=== PATIENT | female | born 1945 | race Caucasian/White ===

== ENCOUNTER 2020-03-21 11:50 | Outpatient (REF) | payer MEDICARE, SELFPAY ==
[2020-03-21 12:56] LABS: Hematocrit 47.6 % (37-47); Mean Corpuscular HGB Conc 33.6 g/dl (31.0-35.0); Mean Corpuscular Hemoglobin 31.7 pg (27.0-33.0); Mean Corpuscular Volume 94.3 fL (80-98); Mean Platelet Volume 11.3 fL (9.4-12.3); Platelet Count 209 X10*3/uL (160-400); Red Blood Count 5.05 X10*6/uL (4.20-5.50); White Blood Count 11.6 X10*3/uL (4.8-10.8)
[2020-03-21 13:25] LABS: Alanine Aminotransferase 21 U/L (0-31); Albumin Level 4.6 g/dL (3.5-5.0); Alkaline Phosphatase 98 U/L (39-117); Aspartate Amino Transferase 17 U/L (5-31); Bilirubin Direct 0.2 mg/dL (0.0-0.5); Bilirubin Total 0.4 mg/dL (0.0-1.0); Cholesterol 192 mg/dL; HDL Cholesterol 40 mg/dL; LDL Cholesterol Calculated 122 mg/dl; Total Protein 7.1 g/dL (6.5-8.0); Triglycerides 152 mg/dL
[2020-03-21 13:49] LABS: Thyroid Stimulating Hormone 1.38 uIU/mL (0.32-4.0)
[2020-03-21 14:59] LABS: Glucose Urine UA NEG (NEG); Leukocyte Esterase Urine 1+ (NEG); Nitrite Urine NEG (NEG); PH 5.5 (5.0-8.0); Specific Gravity - Urine >= 1.030 (1.005-1.025); Urine Blood TRACE (NEG); Urine Ketones NEG (NEG); Urine Protein NEG (NEG-TRACE)
[2020-03-21 15:00] LABS: Appearance Urine HAZY; Color Urine YELLOW
[2020-03-21 15:16] LABS: Bacteria Urine 1+ /LPF; Mucus Urine 1+ /LPF; Squamous Epithelial Cell Urine 1+ /LPF; WBC Urine 30-49 /HPF (0-4)
[2020-03-25 13:02] LABS: Vitamin D 25-OH, D2 <4 ng/mL; Vitamin D 25-OH, D3 59 ng/mL; Vitamin D 25-OH, Total 59 ng/mL (30-100)
== END 2020-03-21 11:51 | disposition home or self-care (01) ==
LOC: HO.LAB 11:50
PROVIDERS: PCP Internal Medicine; Visit Provider Internal Medicine
DX: I10 Essential (primary) hypertension (principal)
CPT/HCPCS: 36415; 80061; 80076; 81001; 82306; 82550; 84443; 85027

== ENCOUNTER 2020-04-28 06:55 | Outpatient (REF) | payer MEDICARE, SELFPAY ==
[2020-04-28 09:10] LABS: Free T4 (Free Thyroxine) 1.02 ng/dL (0.71-1.85); Thyroid Stimulating Hormone 1.07 uIU/mL (0.32-4.0)
== END 2020-04-28 06:56 | disposition home or self-care (01) ==
LOC: HO.LAB 06:55
PROVIDERS: PCP Internal Medicine; Visit Provider Internal Medicine
DX: E04.2 Nontoxic multinodular goiter (principal)
CPT/HCPCS: 36415; 84439; 84443

== ENCOUNTER 2020-05-09 09:56 | Outpatient (REF) | payer MEDICARE, SELFPAY ==
--- NOTE | ~2020-05-09 | US_ITS ---
EXAMINATION: US THYROID CLINICAL INFORMATION: Nontoxic multinodular goiter. COMPARISON: Ultrasound soft tissue head/neck thyroid dated 04/13/2019 and 11/24/2017 TECHNIQUE: Linear transducer moreno-scale and color Doppler examination with attention to the region of the thyroid. FINDINGS: SIZE: Measurements of the thyroid lobes and nodules are given in sagittal, anteroposterior and transverse dimensions respectively. Right Thyroid Lobe: 8.21 x 4.19 x 3.81 cm, volume 68.6 mL. Previously 8.1 x 4.4 x 3.9 cm, volume 72.1 mL. Parenchyma: The gland echotexture is heterogeneous. Thyroid vascularity is normal. Left Thyroid Lobe: 6.17 x 3.03 x 1.67 cm, volume 16.4 mL. Previously 6.2 x 2.7 x 2.0 cm, volume 17.8 mL. Parenchyma: The gland echotexture is heterogeneous. Thyroid vascularity is normal. Isthmus: 0.83 cm in maximum AP dimension. Previously 0.40 cm. Estimated total number of nodules greater than or equal to 1 cm: 3. Retail Security Professional nodules are described as follows: 1. Location: Right. Size: 5.19 x 4.13 x 3.73 cm, volume 41.9 mL. Previously: 4.8 x 3.9 x 3.7 cm, volume 36.2 mL. Nodule characteristics: Composition: Mixed cystic and solid (1). Echogenicity: Hyperechoic (1). Shape: Not taller than wide (0). Margins: Smooth (0). Echogenic Foci: Macrocalcifications (1). Punctate echogenic foci (3). ACR TI-RADS total points: 6 Previous: n/a ACR TI-RADS category: 4 Previous: n/a Significant change in size (>/= 20% in 2 dimensions and minimal increase of 2 mm or 50% or greater increase in volume): None Change in features: None Change in ACR TI-RADS risk category: n/a 2. Location: Left superior. Size: 1.15 x 0.97 x 1.0 cm, volume 0.58 mL. Previously: 0.90 x 0.80 x 0.70 cm, volume 0.26 mL. Nodule characteristics: Composition: Spongiform (0). Echogenicity: Anechoic (0). Shape: Not taller than wide (0). Margins: Smooth (0). Echogenic Foci: None (0). ACR TI-RADS total points: 0 Previous: n/a ACR TI-RADS category: 1 Previous: n/a Significant change in size (>/= 20% in 2 dimensions and minimal increase of 2 mm or 50% or greater increase in volume): Minimal Change in features: None Change in ACR TI-RADS risk category: n/a 3. Location: Left mid/low. Size: 2.93 x 3.10 x 1.99 cm, volume 9.47 mL. Previously: 1.5 x 1.2 x 1.2 cm, volume 1.1 mL. It was partially measured on the previous study. Nodule characteristics: Composition: Solid/almost completely solid (2). Echogenicity: Hypoechoic (2). Shape: Not taller than wide (0). Margins: Smooth (0). Echogenic Foci: None (0). ACR TI-RADS total points: 4 Previous: n/a ACR TI-RADS category: 4 Previous: n/a Significant change in size (>/= 20% in 2 dimensions and minimal increase of 2 mm or 50% or greater increase in volume): None Change in features: None Change in ACR TI-RADS risk category: n/a NODES: No lymphadenopathy is seen in the tissue surrounding the thyroid gland. US/US thyroid IMPRESSION: Heterogeneous 5.2 cm nodule right lobe. It has minimally increased in size compared to 04/13/2019 but still less than 20% volume. The rest of the nodules are not suspicious. Recommend continued annual followup. ACR TI-RADS RECOMMENDATION REFERENCE: Ultrasound-guided fine-needle aspiration, followup ultrasound, no further follow up. * TR1 (0 point) and TR 2 (2 points): No FNA or follow up * TR3 (3 points): FNA if more than or equal to 2.5 cm in maximum dimension, followup ultrasound in 1, 3 and 5 years if 1.5 to 2.4 cm in maximum dimension. * TR4 (4-6 points): FNA if more than or equal to 1.5 cm in maximum dimension, followup ultrasound in 1, 2, 3 and 5 years if 1 to 1.4 cm in maximum dimension. * TR5 (more than or equal to 7 points): FNA if more than or equal to 1 cm in maximum dimension, followup ultrasound every year for 5 years if 0.5 to 0.9 cm in maximum dimension. * TR3, TR4 or TR5 nodules that are below the size threshold for follow up receive no follow up.
== END 2020-05-09 09:57 | disposition home or self-care (01) ==
LOC: HO.US 09:56
PROVIDERS: PCP Internal Medicine; Visit Provider Internal Medicine
DX: E04.2 Nontoxic multinodular goiter (principal)
CPT/HCPCS: 76536

== ENCOUNTER → 2020-06-05 09:34 | Outpatient (BNVA) | payer MEDICARE, SELFPAY | PROVIDERS: PCP Internal Medicine; Visit Provider Internal Medicine | DX: E04.2 Nontoxic multinodular goiter (principal); E55.9 Vitamin D deficiency, unspecified | CPT/HCPCS: 99212 ==

== ENCOUNTER 2020-07-27 09:32 | Outpatient (REF) | payer MEDICARE, SELFPAY ==
--- NOTE | 2020-07-27 10:20 | P.BOP_ITS ---
Brief Operative Note Date of Service: 07/27/20 Surgeon: Jyoti Alexander, DO This is doctor Jyoti Alexander. This is an ultrasound-guided fine-needle aspiration report. Date of Examination: 07/27/2020 Indication: Multinodular Thyroid Porcedure: Procedure was explained to the patient. Alternatives, the risk and benefits were discussed. Written consent was obtained. A time-out was also obtained. After sterile preparation, fine-needle aspiration of a left upper pole 1.2 cm thyroid nodule was performed using direct ultrasound guidance to confirm accurate needle placement. Six aspirations were made using 27 gauge needles. Samples were submitted for cytology. One pass was dedicated for [employer] Gene sequencing hydramatic specialist testing. The patient tolerated the procedure well. Aftercare instructions were provided. Impression: Uncomplicated fine needle aspiration biopsy of a left upper pole 1.2 cm thyroid nodule under ultrasound guidance. Was an Slot Machine Mechanic used for this Procedure?: No Estimated blood loss (mL): 0
[2020-07-27] MEDS: Lidocaine HCl 1 % MPF 5 ML VIAL SUBCUT (11:44)
== END 2020-07-27 09:33 | disposition home or self-care (01) ==
LOC: HO.US 09:32
PROVIDERS: PCP Internal Medicine; Visit Provider Internal Medicine
DX: E04.2 Nontoxic multinodular goiter (principal)
CPT/HCPCS: 10005; 88172; 88173; 88177

== ENCOUNTER → 2020-08-09 07:58 | Outpatient (BNVA) | payer MEDICARE, SELFPAY | PROVIDERS: PCP Physician Assistant; Visit Provider Internal Medicine | CPT/HCPCS: Q3014 ==

== ENCOUNTER 2020-08-15 07:24 | Outpatient (REF) | payer MEDICARE, SELFPAY ==
[2020-08-15 09:00] LABS: Free T4 (Free Thyroxine) 1.03 ng/dL (0.71-1.85); Thyroid Stimulating Hormone 1.06 uIU/mL (0.32-4.0); Vitamin D 25-OH Total 52.4 ng/mL (>30)
[2020-08-16 20:27] LABS: Triiodothyronine T3 Total 124 ng/dL (76-181)
== END 2020-08-15 07:25 | disposition home or self-care (01) ==
LOC: HO.LAB 07:24
PROVIDERS: PCP Internal Medicine; Visit Provider Internal Medicine
DX: E04.2 Nontoxic multinodular goiter (principal); E55.9 Vitamin D deficiency, unspecified
CPT/HCPCS: 36415; 82306; 84439; 84443; 84480

== ENCOUNTER → 2020-08-22 09:38 | Outpatient (BNVA) | payer MEDICARE, SELFPAY | PROVIDERS: PCP Physician Assistant; Visit Provider Urology | DX: N36.2 Urethral caruncle (principal); R31.29 Other microscopic hematuria | CPT/HCPCS: 99212 ==

== ENCOUNTER 2020-10-04 11:01 | Outpatient (REF) | payer MEDICARE, SELFPAY ==
--- NOTE | ~2020-10-04 | MM_ITS ---
EXAMINATION: MM SCREENING DIGITAL BREAST TOMOSYNTHESIS, BILATERAL CLINICAL INFORMATION: Screening. Asymptomatic. The lifetime risk of breast cancer based on the Tyrer-Cuzick Model is 3%. COMPARISON: Mammography: 09/29/2019, 09/23/2018, 09/09/2017 TECHNIQUE: Digital breast tomosynthesis is performed in both the craniocaudal and mediolateral oblique views along with computer-aided detection (CAD). Synthesized 2D images are generated from the tomosynthesis. Additional left CC view is provided. FINDINGS: There are scattered areas of fibroglandular density (ACR BI-RADS breast composition Category b). There are no significant masses, abnormal calcifications, or other abnormalities. Parenchymal pattern is similar to prior studies. No developing density. No significant changes. MM/MM tomosynthesis screening BI IMPRESSION: No mammographic evidence of malignancy. ASSESSMENT: BI-RADS 1: Negative RECOMMENDATION: Routine annual mammography screening. This patient's information was entered into a reminder system with a target due date for their next mammogram.
== END 2020-10-04 11:02 | disposition home or self-care (01) ==
LOC: HO.MAMMO 11:01
PROVIDERS: Visit Provider Internal Medicine
DX: Z12.31 Encounter for screening mammogram for malignant neoplasm of breast (principal)
CPT/HCPCS: 77063; 77067

== ENCOUNTER 2021-01-16 07:15 | Outpatient (REF) | payer MEDICARE, SELFPAY ==
[2021-01-16 07:52] LABS: Hematocrit 47.6 % (37.0-47.0); Hemoglobin 16.2 g/dl (12.0-16.0); Mean Corpuscular Hemoglobin 31.8 pg (27.0-33.0); Mean Corpuscular Volume 93.5 fL (80.0-98.0); Mean Platelet Volume 11.2 fL (9.4-12.3); Platelet Count 194 X10*3/uL (160-400); Red Blood Count 5.09 X10*6/uL (4.20-5.50); Red Cell Distribution Width 13.1 % (11.0-16.0); White Blood Count 11.7 X10*3/uL (4.8-10.8)
[2021-01-16 08:14] LABS: Anion Gap 13 (12-20); Blood Urea Nitrogen 13 mg/dL (9-16); Calcium 9.5 mg/dL (8.4-10.2); Carbon Dioxide 24 mmol/L (22-29); Chloride 108 mmol/L (96-108); Cholesterol 190 mg/dL; Estimated Glomerular Filt Rate > 60; Glucose Random 102 mg/dL (60-115); HDL Cholesterol 34 mg/dL; LDL Cholesterol Calculated 115 mg/dl; Potassium 4.2 mmol/L (3.3-5.1); Sodium 141 mmol/L (135-145); Triglycerides 205 mg/dL
== END 2021-01-16 07:16 | disposition home or self-care (01) ==
LOC: HO.LAB 07:15
PROVIDERS: PCP Internal Medicine; Visit Provider Internal Medicine
DX: I10 Essential (primary) hypertension (principal)
CPT/HCPCS: 36415; 80048; 80061; 85027

== ENCOUNTER 2021-03-26 10:03 | Outpatient (REF) | payer MEDICARE, SELFPAY ==
--- NOTE | ~2021-03-26 | CT_ITS ---
EXAMINATION: CT CHEST SCREENING CLINICAL INFORMATION: Lung cancer screening. COMPARISON: CT chest 09/10/2019. TECHNIQUE: Multidetector volumetric CT imaging of the chest is performed without contrast using low dose technique. Additional 2D coronal and sagittal reformatted images and axial 3D maximum intensity projection (MIP) images are generated on the CT workstation. This CT examination was performed using dose optimization techniques as appropriate, variously including the following: *Automated exposure control *Adjustment of mA and/or kV according to patient size (this includes techniques or standardized protocols for targeted exams where dose is matched to indication/reason for exam; i.e. extremities or head) *Use of iterative reconstruction technique DLP: 64 mGy-cm FINDINGS: LUNGS: The lungs are well expanded and clear of acute pneumonic process. There are linear calcifications seen in the right lower lobe anterobasal segment or along the fissure, stable to previous study. Minimal scarring is seen left lung base. No pulmonary nodules, mass or consolidation. There is a 7 mm linear density right middle lobe axial image 234/6, stable. It was visualized on previous scan on image 244/5. MEDIASTINUM: The right thyroid lobe is significantly enlarged with a hypodense nodule compressing and shifting the trachea to the left. There is substernal extension. The left thyroid gland appears normal. The distal trachea and the bronchi are widely patent. Heart size and the great vessels are normal caliber. No pericardial effusion seen. No abnormal-sized mediastinal or hilar lymph nodes seen. PLEURA: There is no pleural effusion. No pleural mass or thickening. AXILLA: No lymphadenopathy. UPPER ABDOMEN: Visualized liver, spleen, pancreas are unremarkable. Bilateral adrenal glands unremarkable as well. OSSEOUS STRUCTURES: No gross bony abnormality seen. There is moderate ventral spondylosis. No lytic or sclerotic process seen. CT/CT lung screening IMPRESSION: Branching linear calcific anterobasal segment right lower lobe and likely right middle lobe is stable. No thickening of the minor fissure seen. There is a linear focal thickening right middle lobe, stable. Enlarged right thyroid gland with large nodule and substernal thyroid extension deviating and compressing trachea to the left. ASSESSMENT: Lung-RADS category 2: Benign. RECOMMENDATION: Low-dose annual CT chest.
== END 2021-03-26 10:04 | disposition home or self-care (01) ==
LOC: HO.CT 10:03
PROVIDERS: PCP Internal Medicine; Visit Provider Physician Assistant Medical
DX: Z12.2 Encounter for screening for malignant neoplasm of respiratory organs (principal); E04.9 Nontoxic goiter, unspecified; F17.200 Nicotine dependence, unspecified, uncomplicated
CPT/HCPCS: 71271

== ENCOUNTER 2021-09-19 08:55 | Outpatient (REF) | payer MEDICARE, SELFPAY ==
--- NOTE | ~2021-09-19 | US_ITS ---
EXAMINATION: US THYROID CLINICAL INFORMATION: Nontoxic multinodular goiter. COMPARISON: US thyroid 05/09/2020 and 04/13/2019. TECHNIQUE: Linear transducer grayscale and color Doppler examination with attention to the region of the thyroid. FINDINGS: SIZE: Measurements of the thyroid lobes and nodules are given in sagittal, anteroposterior and transverse dimensions respectively. Right Thyroid Lobe: 7.1 x 4.6 x 5.5 cm, volume 93.4 mL. Previously 8.2 x 4.2 x 3.8 cm, volume 68.6 mL. Parenchyma: The gland echotexture is heterogeneous. Thyroid vascularity is normal. Left Thyroid Lobe: 8.0 x 4.3 x 2.1 cm, volume 38.9 mL. Previously 6.2 x 3.0 x 1.7 cm, volume 16.4 mL. Parenchyma: The gland echotexture is heterogeneous. Thyroid vascularity is normal. Isthmus: 1.0 cm in maximum AP dimension. Previously 0.8 cm. Estimated total number of nodules greater than or equal to 1 cm: 3. Looper Operator nodules are described as follows: 1. Location: Right mid/inferior. Size: 5.5 x 4.4 x 3.9 cm, volume 49.3 mL. Previously: 5.2 x 4.1 x 3.7 cm, volume 41.9 mL. Nodule characteristics: Composition: Mixed cystic and solid (1). Echogenicity: Hyperechoic (1). Shape: Taller than wide (3). Margins: Smooth (0). Echogenic Foci: Macrocalcifications (1). Punctate echogenic foci (3). ACR TI-RADS total points: 9 Previous: 6 ACR TI-RADS category: 5 Previous: 4 Significant change in size (>/= 20% in 2 dimensions and minimal increase of 2 mm or 50% or greater increase in volume): Mild increase in volume Change in features: None Change in ACR TI-RADS risk category: Increased 2. Location: Left superior. Size: 0.8 x 0.6 x 0.8 cm, volume 0.2 mL. Previously: 1.2 x 1.0 x 1.0 cm, volume 0.6 mL. Nodule characteristics: Composition: Solid (2). Echogenicity: Hyperechoic (1). Shape: Not taller than wide (0). Margins: Ill-defined (0). Echogenic Foci: None (0). ACR TI-RADS total points: 3 Previous: 0 ACR TI-RADS category: 3 Previous: 1 Significant change in size (>/= 20% in 2 dimensions and minimal increase of 2 mm or 50% or greater increase in volume): Minimally smaller Change in features: None Change in ACR TI-RADS risk category: Minimal increase in TI-RADS. 3. Location: Right mid/inferior. Size: 3.2 x 2.3 x 1.9 cm, volume 7.0 mL. Previously: 2.9 x 3.1 x 2.0 cm, volume 9.5 mL. Nodule characteristics: Composition: Solid (2). Echogenicity: Hyperechoic (1). Shape: Taller than wide (3). Margins: Smooth (0). Echogenic Foci: None (0). ACR TI-RADS total points: 6 Previous: 4 ACR TI-RADS category: 4 Previous: 4 Significant change in size (>/= 20% in 2 dimensions and minimal increase of 2 mm or 50% or greater increase in volume): Change in features: None Change in ACR TI-RADS risk category: Minimal change NODES: No lymphadenopathy is seen in the tissue surrounding the thyroid gland. US/US thyroid IMPRESSION: Increase in bilateral thyroid volume and heterogeneity compared to last exam. The left thyroid nodule is more heterogeneous. Recommend close followup. Minimal increase in size of the right mid pole nodule. Recommend close followup ACR TI-RADS RECOMMENDATION REFERENCE: Ultrasound-guided fine-needle aspiration, followup ultrasound, no further follow up. * TR1 (0 point) and TR 2 (2 points): No FNA or follow up * TR3 (3 points): FNA if more than or equal to 2.5 cm in maximum dimension, followup ultrasound in 1, 3 and 5 years if 1.5 to 2.4 cm in maximum dimension. * TR4 (4-6 points): FNA if more than or equal to 1.5 cm in maximum dimension, followup ultrasound in 1, 2, 3 and 5 years if 1 to 1.4 cm in maximum dimension. * TR5 (more than or equal to 7 points): FNA if more than or equal to 1 cm in maximum dimension, followup ultrasound every year for 5 years if 0.5 to 0.9 cm in maximum dimension. * TR3, TR4 or TR5 nodules that are below the size threshold for follow up receive no follow up.
== END 2021-09-19 08:56 | disposition home or self-care (01) ==
LOC: HO.US 08:55
PROVIDERS: Visit Provider Internal Medicine
DX: E04.2 Nontoxic multinodular goiter (principal)
CPT/HCPCS: 76536

== ENCOUNTER 2021-10-09 09:07 | Outpatient (REF) | payer MEDICARE, SELFPAY ==
--- NOTE | ~2021-10-09 | MM_ITS ---
EXAMINATION: BONE DENSITOMETRY EXAMINATION: BONE DENSITOMETRY CLINICAL INDICATION: Asymptomatic menopausal state. COMPARISON: Baseline BD dated 01/12/2019. TECHNIQUE: Using a [employer] DXA System (software version: 13.1) manufactured by [employer], dual-energy x-ray absorptiometry was performed of the lumbar spine and left hip. The images are of good technical quality. Summary results are attached. FINDINGS: AP SPINE L1-L4: Current: BMD 1.215 g/cm2, Z-score 0.9, T-score 0.3, normal, 7.2% increase from baseline (<5% change is not significant). Baseline: BMD 1.133 g/cm2. LEFT FEMUR, NECK: Current: BMD 0.863 g/cm2, Z-score -0.1, T-score -1.3, osteopenia. Baseline: BMD 0.880 g/cm2. LEFT FEMUR, TOTAL: Current: BMD 0.916 g/cm2, Z-score 0.2, T-score -0.7, normal, 3.0% increase from baseline (<5% change is not significant). Baseline: BMD 0.889 g/cm2. IDENTIFIED RISK FACTORS: Early menopause, secondary osteoporosis, family history (parental hip fracture), tobacco use (current smoker). HISTORY OF FRACTURE: None listed. MEDICATIONS: Calcium supplements or multivitamin, vitamin D. MM/XR DEXA axial skeleton IMPRESSION: 1. DIAGNOSIS: Osteopenia based on the lowest T-score value of -1.3 in the femoral neck applying World Health Organization criteria. 2. 10-YEAR FRACTURE RISK PREDICTION, FRAX: Major osteoporotic fracture (clinical spine, forearm, hip or shoulder) 17.9%. Hip fracture 10.1%. 3. Treatment Recommendations: NOF guidelines recommend consideration for treatment in postmenopausal women and men age 50 and older presenting with the following: -A hip or vertebral (clinical or morphometric) fracture. -T-score less than or equal to -2.5 at the femoral neck or spine after appropriate evaluation to exclude secondary causes. -Low bone mass at the hip or spine and a 10-year fracture probability by FRAX of greater than or equal to 3% for hip fracture or greater than or equal to 20% for major osteoporotic fracture based on the [place] adapted WHO algorithm. 4. Other Recommendations: All treatment decisions require clinical judgment and consideration of individual patient factors, including patient preferences, comorbidities, previous drug use, risk factors not captured in the FRAX model (e.g. frailty, falls, vitamin D deficiency, increased bone turnover, interval significant decline in bone density) and possible under or overestimation of fracture risk by FRAX. Additional medical evaluation for secondary cause of low bone mineral density may be appropriate. FUTURE SCAN RECOMMENDATION: People with diagnosed cases of osteoporosis or at high risk for fracture should have regular bone mineral density tests. For patients eligible for Medicare, routine testing is allowed once every 2 years. The testing frequency can be increased to one year for patients who have rapidly progressing disease, those who are receiving or discontinuing medical therapy to restore bone mass, or have additional risk factors.
--- NOTE | ~2021-10-09 | MM_ITS ---
EXAMINATION: MM SCREENING DIGITAL BREAST TOMOSYNTHESIS, BILATERAL CLINICAL INFORMATION: Screening. Asymptomatic. The lifetime risk of breast cancer based on the Tyrer-Cuzick Model is 3%. COMPARISON: Mammography: 10/04/2020, 09/29/2019, 09/23/2018, 09/09/2017 TECHNIQUE: Digital breast tomosynthesis is performed in both the craniocaudal and mediolateral oblique views along with computer-aided detection (CAD). Synthesized 2D images are generated from the tomosynthesis. FINDINGS: There are scattered areas of fibroglandular density (ACR BI-RADS breast composition Category b). There are no significant masses, abnormal calcifications, or other abnormalities. No architectural abnormality or developing density. No significant changes. The axilla are unremarkable. MM/MM tomosynthesis screening BI IMPRESSION: No mammographic evidence of malignancy. ASSESSMENT: BI-RADS 1: Negative RECOMMENDATION: Routine annual mammography screening. This patient's information was entered into a reminder system with a target due date for their next mammogram.
== END 2021-10-09 09:08 | disposition home or self-care (01) ==
LOC: HO.MAMMO 09:07
PROVIDERS: Visit Provider Nurse Practitioner Family
DX: Z12.31 Encounter for screening mammogram for malignant neoplasm of breast (principal); Z13.820 Encounter for screening for osteoporosis; Z78.0 Asymptomatic menopausal state
CPT/HCPCS: 77063; 77067; 77080

== ENCOUNTER 2021-10-15 09:00 | Outpatient (RCR) | payer MEDICARE, SELFPAY | END 2021-11-13 14:47 | disposition home or self-care (01) | LOC: HO.PTWFD 09:00 | PROVIDERS: PCP Internal Medicine; Visit Provider Nurse Practitioner Family | DX: M54.50 Low back pain, unspecified (principal) | CPT/HCPCS: 97110; 97140; 97161 ==

== ENCOUNTER → 2021-11-08 12:10 | Outpatient (BNVA) | payer MEDICARE, SELFPAY | PROVIDERS: PCP Internal Medicine; Visit Provider Internal Medicine | DX: E04.2 Nontoxic multinodular goiter (principal) | CPT/HCPCS: 99212 ==

== ENCOUNTER 2021-11-09 09:21 | Outpatient (REF) | payer MEDICARE, SELFPAY ==
[2021-11-09 12:32] LABS: Anion Gap 18 (12-20); Blood Urea Nitrogen 14 mg/dL (9-16); Calcium 9.4 mg/dL (8.4-10.2); Carbon Dioxide 20 mmol/L (22-29); Chloride 106 mmol/L (96-108); Estimated Glomerular Filt Rate > 60; Glucose Fasting 120 mg/dL (60-99); Potassium 4.3 mmol/L (3.3-5.1); Sodium 140 mmol/L (135-145)
[2021-11-09 12:35] LABS: Thyroid Stimulating Hormone 0.38 uIU/mL (0.32-4.0)
[2021-11-09 12:36] LABS: Free T4 (Free Thyroxine) 1.16 ng/dL (0.71-1.85)
== END 2021-11-09 09:22 | disposition home or self-care (01) ==
LOC: HO.WFDLDS 09:21
PROVIDERS: Nurse Practitioner Family; Visit Provider Internal Medicine
DX: Z13.1 Encounter for screening for diabetes mellitus (principal); E04.2 Nontoxic multinodular goiter
CPT/HCPCS: 36415; 80048; 84439; 84443

== ENCOUNTER 2022-01-11 07:12 | Outpatient (REF) | payer MEDICARE, SELFPAY ==
[2022-01-11 11:42] LABS: Hematocrit 48.4 % (37.0-47.0); Hemoglobin 16.5 g/dl (12.0-16.0); Mean Corpuscular HGB Conc 34.1 g/dl (31.0-35.0); Mean Corpuscular Hemoglobin 31.3 pg (27.0-33.0); Mean Corpuscular Volume 91.8 fL (80.0-98.0); Platelet Count 206 X10*3/uL (160-400); Red Blood Count 5.27 X10*6/uL (4.20-5.50); Red Cell Distribution Width 12.4 % (11.0-16.0); White Blood Count 9.1 X10*3/uL (4.8-10.8)
[2022-01-11 12:29] LABS: Thyroid Stimulating Hormone < 0.01 uIU/mL (0.32-4.0)
[2022-01-11 12:59] LABS: Alanine Aminotransferase 34 U/L (0-31); Albumin Level 4.2 g/dL (3.5-5.0); Alkaline Phosphatase 93 U/L (39-117); Anion Gap 21 (12-20); Aspartate Amino Transferase 28 U/L (5-31); Bilirubin Direct 0.3 mg/dL (0.0-0.5); Blood Urea Nitrogen 14 mg/dL (9-16); Calcium 9.6 mg/dL (8.4-10.2); Carbon Dioxide 18 mmol/L (22-29); Chloride 107 mmol/L (96-108); Cholesterol 140 mg/dL; Estimated Glomerular Filt Rate > 60; Glucose Random 90 mg/dL (60-115); HDL Cholesterol 31 mg/dL; LDL Cholesterol Calculated 83 mg/dl; Potassium 4.6 mmol/L (3.3-5.1); Sodium 141 mmol/L (135-145); Total Protein 6.9 g/dL (6.5-8.0); Triglycerides 131 mg/dL
== END 2022-01-11 07:13 | disposition home or self-care (01) ==
LOC: HO.WFDLDS 07:12
PROVIDERS: Visit Provider Internal Medicine
DX: E66.01 Morbid (severe) obesity due to excess calories (principal); I10 Essential (primary) hypertension
CPT/HCPCS: 36415; 80048; 80061; 80076; 84443; 85027

== ENCOUNTER 2022-01-18 09:09 | Outpatient (REF) | payer MEDICARE, SELFPAY ==
[2022-01-18 12:29] LABS: Thyroid Stimulating Hormone < 0.01 uIU/mL (0.32-4.0)
[2022-01-19 11:57] LABS: Triiodothyronine T3 Total 307 ng/dL (76-181)
[2022-01-21 18:27] LABS: Thyroglobulin Antibodies <1 IU/mL (< or = 1); Thyroid Peroxidase Antibodies 1 IU/mL (<9)
[2022-01-23 19:02] LABS: Thyrotropin Receptor Antibody 9.42 IU/L (<=2.00)
[2022-01-25 15:47] LABS: Thyroid Stimulating Immunoglob 370 % baseline (<140)
== END 2022-01-18 09:10 | disposition home or self-care (01) ==
LOC: HO.WFDLDS 09:09
PROVIDERS: Visit Provider Internal Medicine
DX: E05.90 Thyrotoxicosis, unspecified without thyrotoxic crisis or storm (principal)
CPT/HCPCS: 36415; 83520; 84439; 84443; 84445; 84480; 86376; 86800

== ENCOUNTER → 2022-02-19 09:02 | Outpatient (REF) | payer MEDICARE, SELFPAY | LOC: HO.NUCMED 09:02 | PROVIDERS: PCP Internal Medicine; Visit Provider Internal Medicine | DX: Z13.89 Encounter for screening for other disorder (principal) | CPT/HCPCS: 78014; A9512; A9516 ==

== ENCOUNTER 2022-03-07 09:19 | Outpatient (REF) | payer MEDICARE, SELFPAY ==
[2022-03-07 12:28] LABS: Free T4 (Free Thyroxine) 1.68 ng/dL (0.71-1.85); Thyroid Stimulating Hormone < 0.01 uIU/mL (0.32-4.0)
== END 2022-03-07 09:20 | disposition home or self-care (01) ==
LOC: HO.WFDLDS 09:19
PROVIDERS: Visit Provider Internal Medicine
DX: E04.2 Nontoxic multinodular goiter (principal)
CPT/HCPCS: 36415; 84439; 84443

== ENCOUNTER 2022-03-20 08:19 | Outpatient (REF) | payer MEDICARE, SELFPAY ==
[2022-03-21 10:33] LABS: Triiodothyronine T3 Total 211 ng/dL (76-181)
== END 2022-03-20 08:20 | disposition home or self-care (01) ==
LOC: HO.WFDLDS 08:19
PROVIDERS: Visit Provider Internal Medicine
DX: E05.90 Thyrotoxicosis, unspecified without thyrotoxic crisis or storm (principal)
CPT/HCPCS: 36415; 84439; 84480

== ENCOUNTER 2022-04-08 09:51 | Outpatient (REF) | payer MEDICARE, SELFPAY ==
[2022-04-08 12:28] LABS: Free T4 (Free Thyroxine) 1.12 ng/dL (0.71-1.85)
[2022-04-09 08:48] LABS: Triiodothyronine T3 Total 184 ng/dL (76-181)
== END 2022-04-08 09:52 | disposition home or self-care (01) ==
LOC: HO.WFDLDS 09:51
PROVIDERS: Visit Provider Internal Medicine
DX: E05.90 Thyrotoxicosis, unspecified without thyrotoxic crisis or storm (principal)
CPT/HCPCS: 36415; 84439; 84480

== ENCOUNTER 2022-04-24 09:39 | Outpatient (REF) | payer MEDICARE, SELFPAY ==
[2022-04-24 12:17] LABS: Free T4 (Free Thyroxine) 0.94 ng/dL (0.71-1.85)
[2022-04-26 08:32] LABS: Triiodothyronine T3 Total 149 ng/dL (76-181)
== END 2022-04-24 09:40 | disposition home or self-care (01) ==
LOC: HO.WFDLDS 09:39
PROVIDERS: Visit Provider Internal Medicine
DX: E05.90 Thyrotoxicosis, unspecified without thyrotoxic crisis or storm (principal)
CPT/HCPCS: 36415; 84439; 84480

== ENCOUNTER 2022-06-12 09:34 | Outpatient (REF) | payer MEDICARE, SELFPAY ==
[2022-06-12 12:45] LABS: Free T4 (Free Thyroxine) 0.48 ng/dL (0.71-1.85); Thyroid Stimulating Hormone 19.15 uIU/mL (0.32-4.0)
[2022-06-13 10:34] LABS: Triiodothyronine T3 Total 123 ng/dL (76-181)
== END 2022-06-12 09:35 | disposition home or self-care (01) ==
LOC: HO.WFDLDS 09:34
PROVIDERS: Visit Provider Internal Medicine
DX: E05.90 Thyrotoxicosis, unspecified without thyrotoxic crisis or storm (principal)
CPT/HCPCS: 36415; 84439; 84443; 84480

== ENCOUNTER 2022-06-26 10:02 | Outpatient (REF) | payer MEDICARE, SELFPAY ==
[2022-06-26 14:37] LABS: Free T4 (Free Thyroxine) 0.48 ng/dL (0.71-1.85)
[2022-06-28 06:23] LABS: Triiodothyronine T3 Total 117 ng/dL (76-181)
== END 2022-06-26 10:03 | disposition home or self-care (01) ==
LOC: HO.WFDLDS 10:02
PROVIDERS: Visit Provider Internal Medicine
DX: E05.90 Thyrotoxicosis, unspecified without thyrotoxic crisis or storm (principal)
CPT/HCPCS: 36415; 84439; 84480

== ENCOUNTER 2022-07-11 09:45 | Outpatient (REF) | payer MEDICARE, SELFPAY ==
[2022-07-11 12:23] LABS: Free T4 (Free Thyroxine) 0.84 ng/dL (0.71-1.85)
[2022-07-13 05:08] LABS: Triiodothyronine T3 Total 144 ng/dL (76-181)
== END 2022-07-11 09:46 | disposition home or self-care (01) ==
LOC: HO.WFDLDS 09:45
PROVIDERS: Visit Provider Internal Medicine
DX: E05.90 Thyrotoxicosis, unspecified without thyrotoxic crisis or storm (principal)
CPT/HCPCS: 36415; 84439; 84443; 84480

== ENCOUNTER 2022-07-23 09:57 | Outpatient (REF) | payer MEDICARE, SELFPAY ==
[2022-07-23 13:11] LABS: Free T4 (Free Thyroxine) 1.14 ng/dL (0.71-1.85)
[2022-07-25 21:04] LABS: Triiodothyronine T3 Total 148 ng/dL (76-181)
== END 2022-07-23 09:58 | disposition home or self-care (01) ==
LOC: HO.WFDLDS 09:57
PROVIDERS: Visit Provider Internal Medicine
DX: E05.90 Thyrotoxicosis, unspecified without thyrotoxic crisis or storm (principal)
CPT/HCPCS: 36415; 84439; 84480

== ENCOUNTER 2022-08-15 09:28 | Outpatient (REF) | payer MEDICARE, SELFPAY ==
[2022-08-15 11:45] LABS: Thyroid Stimulating Hormone 0.06 uIU/mL (0.32-4.0)
[2022-08-17 09:13] LABS: Triiodothyronine T3 Total 159 ng/dL (76-181)
== END 2022-08-15 09:29 | disposition home or self-care (01) ==
LOC: HO.WFDLDS 09:28
PROVIDERS: Visit Provider Internal Medicine
DX: E05.90 Thyrotoxicosis, unspecified without thyrotoxic crisis or storm (principal)
CPT/HCPCS: 36415; 84439; 84443; 84480

== ENCOUNTER 2022-08-21 09:32 | Outpatient (REF) | payer MEDICARE, SELFPAY ==
--- NOTE | ~2022-08-21 | US_ITS ---
EXAMINATION: US THYROID CLINICAL INFORMATION: Nontoxic multinodular goiter. COMPARISON: Thyroid ultrasound 09/19/2021 and 05/09/2020. Ultrasound-guided thyroid biopsy 07/27/2020. TECHNIQUE: Linear transducer grayscale and color Doppler examination with attention to the region of the thyroid. FINDINGS: SIZE: Measurements of the thyroid lobes and nodules are given in sagittal, anteroposterior and transverse dimensions respectively. Right Thyroid Lobe: 7.2 x 3.9 x 4.9 cm, volume 72.0 mL. Previously 7.1 x 4.6 x 5.5 cm, volume 93.4 mL. Parenchyma: The gland echotexture is heterogeneous. Thyroid vascularity is normal. Left Thyroid Lobe: 5.8 x 2.8 x 2.0 cm, volume 17.0 mL. Previously 8.0 x 4.3 x 2.1 cm, volume 38.9 mL. Parenchyma: The gland echotexture is heterogeneous. Thyroid vascularity is normal. Isthmus: 1.0 cm in maximum AP dimension. Previously 1.0 cm. Estimated total number of nodules greater than or equal to 1 cm: 4. Body Corporate Manager nodules are described as follows: 1. Location: Right lower pole. Size: 4.3 x 4.5 x 4.1 cm, volume 39.7 mL. Previously: 5.5 x 4.1 x 4.0 cm, volume 49.3 mL. Nodule characteristics: Composition: Mixed cystic and solid (1). Echogenicity: Isoechoic (1). Shape: Not taller than wide (0). Margins: Ill-defined (0). Echogenic Foci: None (0). Macrocalcifications (0). ACR TI-RADS total points: 2 Previous: 9 ACR TI-RADS category: 2 Previous: 5 Significant change in size (>/= 20% in 2 dimensions and minimal increase of 2 mm or 50% or greater increase in volume): No Change in features: No Change in ACR TI-RADS risk category: Yes 2. Location: Right mid pole. Size: 1.3 x 0.7 x 1.2 cm, volume 0.6 mL. Previously: Not documented, new. Nodule characteristics: Composition: Solid (2). Echogenicity: Isoechoic (1). Shape: Not taller than wide (0). Margins: Smooth (0). Echogenic Foci: None (0). ACR TI-RADS total points: 3 ACR TI-RADS category: 3 3. Location: Left upper pole. Size: 1.2 x 1.2 x 1.1 cm, volume 0.8 mL. Previously: 0.8 x 0.6 x 0.8 cm, volume 0.2 mL. Nodule characteristics: Composition: Mixed cystic and solid (1). Echogenicity: Isoechoic (1). Shape: No 1 Margins: Ill-defined (1). Echogenic Foci: None (0). ACR TI-RADS total points: 4 Previous: 3 ACR TI-RADS category: 4 Previous: 3 Significant change in size (>/= 20% in 2 dimensions and minimal increase of 2 mm or 50% or greater increase in volume): Yes Change in features: No Change in ACR TI-RADS risk category: 2 4. Location: Left mid pole. Size: 4.2 x 2.5 x 1.9 cm, volume 10.2 mL. Previously: 2.9 x 3.1 x 2.0 cm, volume 9.5 mL. Nodule characteristics: Composition: Solid/almost completely solid (2). Echogenicity: Hypoechoic (1). Shape: Not taller than wide (0). Margins: Smooth (0). Echogenic Foci: None (0). ACR TI-RADS total points: 3 Previous: 6 ACR TI-RADS category: 3 Previous: 4 Significant change in size (>/= 20% in 2 dimensions and minimal increase of 2 mm or 50% or greater increase in volume): No Change in features: Yes Change in ACR TI-RADS risk category: Yes, lower than NODES: No lymphadenopathy is seen in the tissue surrounding the thyroid gland. US/US thyroid IMPRESSION: Multinodular goiter with a few interval change ACR TI-RADS RECOMMENDATION REFERENCE: Ultrasound-guided fine-needle aspiration, followup ultrasound, no further follow up. * TR1 (0 point) and TR2 (2 points): No FNA or follow up * TR3 (3 points): FNA if more than or equal to 2.5 cm in maximum dimension, followup ultrasound in 1, 3 and 5 years if 1.5 to 2.4 cm in maximum dimension. * TR4 (4-6 points): FNA if more than or equal to 1.5 cm in maximum dimension, followup ultrasound in 1, 2, 3 and 5 years if 1 to 1.4 cm in maximum dimension. * TR5 (more than or equal to 7 points): FNA if more than or equal to 1 cm in maximum dimension, followup ultrasound every year for 5 years if 0.5 to 0.9 cm in maximum dimension. * TR3, TR4 or TR5 nodules that are below the size threshold for follow up receive no follow up.
== END 2022-08-21 09:33 | disposition home or self-care (01) ==
LOC: HO.US 09:32
PROVIDERS: PCP Internal Medicine; Visit Provider Internal Medicine
DX: E04.2 Nontoxic multinodular goiter (principal)
CPT/HCPCS: 76536

== ENCOUNTER 2022-08-29 10:04 | Outpatient (REF) | payer MEDICARE, SELFPAY ==
[2022-08-29 12:23] LABS: Free T4 (Free Thyroxine) 1.28 ng/dL (0.71-1.85)
[2022-08-31 06:03] LABS: Triiodothyronine T3 Total 153 ng/dL (76-181)
== END 2022-08-29 10:05 | disposition home or self-care (01) ==
LOC: HO.WFDLDS 10:04
PROVIDERS: Visit Provider Internal Medicine
DX: E05.90 Thyrotoxicosis, unspecified without thyrotoxic crisis or storm (principal)
CPT/HCPCS: 36415; 84439; 84480

== ENCOUNTER 2022-09-25 10:42 | Outpatient (REF) | payer MEDICARE, SELFPAY ==
[2022-09-25 15:00] LABS: Free T4 (Free Thyroxine) 0.97 ng/dL (0.71-1.85)
[2022-09-27 05:58] LABS: Triiodothyronine T3 Total 122 ng/dL (76-181)
== END 2022-09-25 10:43 | disposition home or self-care (01) ==
LOC: HO.WFDLDS 10:42
PROVIDERS: Visit Provider Internal Medicine
DX: E05.90 Thyrotoxicosis, unspecified without thyrotoxic crisis or storm (principal)
CPT/HCPCS: 36415; 84439; 84480

== ENCOUNTER 2022-10-04 08:46 | Outpatient (AMB) | payer MEDICARE, SELFPAY ==
[2022-10-04 08:57] VITALS: BP 132/80; PULSE 89; O2SAT 97; BMI 35.3
--- NOTE | 2022-10-04 08:57 | A.OFFVIS_ITS ---
Intake Vital Signs 10/04/22 08:57 Height 5 ft 6 in Weight 219 lb BMI 35.3 BP 132/80 Blood Pressure Location Lt brachial Position Sitting Pulse 89 Pulse Source Pulse Oximeter Temp Source Skin Pulse Oximetry (%) 97 Oxygen Delivery Method Room Air Intake Visit Reasons: SAWV Allergies No Known Allergies [No Known Allergies*] Allergy (Verified 10/04/22 09:14) Medication List - Last Reconciled 10/04/22 by KAMAR Tellez amlodipine 10 mg PO DAILY aspirin 81 mg PO DAILY calcium carbonate 500 mg PO DAILY cetirizine (Zyrtec) 10 mg PO DAILY cholecalciferol (vitamin D3) 50 mcg PO DAILY cyclobenzaprine 10 mg PO BEDTIME lisinopril 40 mg (2 x 20 mg) PO DAILY methimazole 10 mg (2 x 5 mg) PO DAILY 30 days multivitamin 1 tab PO DAILY Fall Risk Assessment Fall risk assessment: No Falls in past year Date Fall Risk Assessed: 10/04/22 HPI SAWV HPI Details Patient is a 77-year-old female who presents today for subsequent wellness visit.? Patient of Dr. Wild. Today we discussed patient's need for diabetes screening. Patient has an upcoming mammogram scheduled for this month, bone density screen 10/2021 which showed osteopenia. Up-to-date with immunizations. [place] of care was reviewed with the patient and she was provided with a screening schedule. MOLST form is on file and patient will provide office with a healthcare proxy form. [facility] Medical History Cataract (lens) fragments in eye following cataract surgery, left eye Class 2 severe obesity with body mass index (BMI) of 35 to 39.9 with serious comorbidity Essential (primary) hypertension Hyperthyroidism Microscopic hematuria Multinodular thyroid Tobacco use disorder Vitamin D deficiency Surgical History History of colonoscopy History of tonsillectomy Hx of cataract extraction Family History Father Angina at rest Melanoma Cardiac disease Leukemia Mother Hypertension Macular degeneration Maternal Grandfather Substance abuse Social History Housing: Apartment Alcohol intake: current Alcohol intake frequency: does not drink Patient Tobacco Use Status: Current everyday Tobacco user Tobacco use type: Cigarette Cigarettes Per Day: 7 e-Cigarette/Vaping Use: Never Used Second Hand Smoke Exposure: Yes service: No Current occupational status: retired Cognitive needs: No Hearing needs: Yes (hearing aides) Vision needs: Yes (Glasses) Questionnaire Medicare Wellness Checkup [age] What gender do you identify with?: female During the past 4 weeks, how much have you been bothered by emotional problems such as feeling anxious, depressed, irritable, sad or downhearted, and blue?: not at all During the past 4 weeks, has your physical & emotional health limited your social activities with family, friends, neighbors, or groups?: not at all During the past 4 weeks, how much bodily pain have you generally had?: no pain During the past 4 weeks, was someone available to help you if you needed & wanted help?: yes, as much as I wanted During the past 4 weeks, what was the hardest physical activity you could do for at least 2 minutes?: moderate Can you get to places out of walking distance without help? (For eg., can you travel alone on buses, taxis or drive your car?): Yes Can you go shopping for groceries or clothes without someone's help?: Yes Can you prepare your own meals?: Yes Can you do your housework without help?: Yes Because of any health problems, do you need the help of another person with your personal care needs such as eating, bathing, dressing or getting around the house?: No Can you handle your own money without help?: Yes During the past 4 weeks, how would you rate your health in general?: fair During the past 4 weeks how have things been going for you?: good & bad parts about equal Are you having difficulties driving your car?: no Do you always fasten your seat belt when you are in a car?: yes, usually During past 4 weeks, have you been bothered by the following: never: Falling or dizzy when standing up, Sexual problems?, Trouble eating well? and Problems using the telephone? and seldom: Teeth or denture problems? and Tiredness or fatigue? Have you fallen 2 or more times in the past year?: No Are you afraid of falling?: No Are you a smoker?: yes, but I'm not ready to quit During the past 4 weeks, how many drinks of wine, beer, or other alcoholic beverages did you have?: no alcohol at all Do you exercise for about 20 minutes 3 or more times a week?: no, I usually do not exercise this much Have you been given information to help with the following?: yes: Hazards in your house that might hurt you? and yes: Keeping track of your medications? How often do you have trouble taking medicines the way you have been told to take them?: I always take medicine as prescribed How confident are you that you can control & manage most of your health problems?: very confident What is your race?: White Mini Mental State Exam (MMSE) Orientation What is the (year) (season) (date) (day) (month)?: year, season, date, day and month Score Score: 5 Activity of Daily Living Bathing - sponge bath, tub bath or shower: receives no assistance (gets in/out by self, if usual bathing means Dressing - getting clothes from closets & drawers, including inner/outer garments & fasteners.: gets clothes & gets completely dressed without help Toileting - going to the 'toilet room' for urine/bowel elimination & cleaning self/arranging clothes: goes to toilet room, cleans self, arranges clothes without help Transfer: moves in & out of bed and chair without help (may use support object) Continence: controls urination/bowel movements completely by self Feeding: feeds self without help Total Score: 0 Information obtained from: patient Using telephone: independent Traveling: independent Shopping: independent Preparing meals: independent Housework: independent Taking medicine: independent Managing money: independent PHQ-9 Over the last 2 weeks, how often have you been bothered by any of the following problems? 1. Little interest or pleasure in doing things: not at all 2. Feeling down, depressed, or hopeless: not at all 3. Trouble falling or staying asleep, or sleeping too much: not at all 4. Feeling tired or having little energy: not at all 5. Poor appetite or overeating: not at all 6. Feeling bad about yourself - or that you are a failure or have let yourself or your family down: not at all 7. Trouble concentrating on things, such as reading the newspaper or watching television: not at all 8. Moving or speaking so slowly that other people could have noticed. Or the opposite - being so fidgety or restless that you have been moving around a lot more than usual: not at all 9. Thoughts that you would be better off or of hurting yourself in some way: not at all Total score: 0 Depression Screening Interpretation: Negative 85897 - PHQ-9 Billing: Yes Source: Developed by Drs. Geronimo Davis, Tosha Madrid, Marlo Oneill and colleagues, with an educational ruiz from [employer]. ODILON-7 AMB Questionnaire ODILON-7 Date ODILON - 7 assessed: 04/18/22 Feeling nervous, anxious, or on edge: 0 = Not at all Not being able to stop or control worryin = Not at all Worrying too much about different things: 0 = Not at all Trouble relaxin = Not at all Being so restless that it is hard to sit still: 0 = Not at all Becoming easily annoyed or irritable: 0 = Not at all Feeling afraid as if something awful might happen: 0 = Not at all Total ODILON-7 score (0-4 normal; 5-9 mild; 10-14 moderate; 15-21 severe): 0 Source: Developed by Drs. Geronmio Davis, Tosha Madrid, Marlo Oneill and colleagues, with an educational ruiz from [employer]. ODILON-7 Assessment Billing ODILON-7 Assessment Tool: ODILON-7 Assessment 56056 AUDIT C Alcohol Use Questionnaire (AUDIT-C) 1. How often do you have a drink containing alcohol?: Never 3. How often do you have six or more drinks on one occasion?: Never Total Score: 0 Score Reviewed/Action Taken: No Thrive Questionnaire Date Thrive assessed: 04/18/22 Physical Exam Vital Signs: Last Vital Signs Pulse 89 10/04/22 08:57 BP 132/80 10/04/22 08:57 Pulse Ox 97 10/04/22 08:57 Oxygen Delivery Method Room Air 10/04/22 08:57 BMI result Body Mass Index 35.3 Const General: cooperative and no acute distress Orientation/consciousness: patient oriented x3 HEENT Other: Whisper test: fail Neuro Other: Balance: Normal Get up and walk: able to Romberg: negative Tandem gait: able to General: patient oriented x3 Assessment & Plan Assessment & Plan (1) Screening for diabetes mellitus: Code(s): Z13.1 - Encounter for screening for diabetes mellitus (2) Class 2 severe obesity with body mass index (BMI) of 35 to 39.9 with serious comorbidity: Code(s): E66.01 - Morbid (severe) obesity due to excess calories Plan: Healthy food choices and exercise as tolerated (3) Annual physical exam: Code(s): Z00.00 - Encounter for general adult medical examination without abnormal findings (4) Vitamin D deficiency: Code(s): E55.9 - Vitamin D deficiency, unspecified Plan: Continue vitamin D3 50 mcg daily (5) Multinodular thyroid: Code(s): E04.2 - Nontoxic multinodular goiter Plan: Continue to follow-up with Endocrinology Dr. Thomas (6) Essential (primary) hypertension: Code(s): I10 - Essential (primary) hypertension Plan: Continue current treatment Low-sodium diet and weight loss Goal BP equal or less than 140/90 Orders: Orders Basic Metabolic Panel Fasting Today Z13.1 - Encounter for screening for diabetes mellitus Quality Reporting (2020) Fall Risk Screening ([facility] 139) Last assessed Fall Risk: 10/04/22 Fall risk assessment: No Falls in past year Depression/Bipolar (159/160/161/177) PHQ-9: Total score: 0 Coding Level of Care Code Medicare Subsequent (G0439) Diagnoses Screening for diabetes mellitus Z13.1 Class 2 severe obesity with body mass index (BMI) of 35 to 39.9 with serious comorbidity E66.01 Annual physical exam Z00.00 Vitamin D deficiency E55.9 Multinodular thyroid E04.2 Essential (primary) hypertension I10 CPT Codes Advance Care Planning - Advance Care Planning discussion: On file, no changes ([id number]) Advance Care Planning - Time spent: 1-15 minutes, on File ([id number]) Additional Codes ODILON-7 Assessment Billing - ODILON-7 Assessment Tool: ODILON-7 Assessment 24087 ([id number]) Advance Care Planning Advance Care Planning discussion: On file, no changes Date of discussion: 10/04/22 Who was present: pt and inpatient auditor Forms completed: None Time spent: 1-15 minutes, on File Actual minutes spent: 1 Did not discuss due to Cultural/Spiritual beliefs: No
== END 2022-10-04 09:24 | disposition home or self-care (01) ==
PROVIDERS: Visit Provider Nurse Practitioner Family
DX: Z00.00 Encounter for general adult medical examination without abnormal findings (principal); I10 Essential (primary) hypertension; E66.01 Morbid (severe) obesity due to excess calories; Z68.35 Body mass index [BMI] 35.0-35.9, adult; E04.2 Nontoxic multinodular goiter
CPT/HCPCS: 1123F; G0439

== ENCOUNTER 2022-10-14 09:24 | Outpatient (REF) | payer MEDICARE, SELFPAY ==
[2022-10-14 12:39] LABS: Anion Gap 12 (12-20); Blood Urea Nitrogen 10 mg/dL (9-16); Calcium 9.9 mg/dL (8.4-10.2); Carbon Dioxide 24 mmol/L (22-29); Chloride 107 mmol/L (96-108); Estimated Glomerular Filt Rate > 60; Glucose Fasting 98 mg/dL (60-99); Potassium 4.3 mmol/L (3.3-5.1); Sodium 139 mmol/L (135-145)
== END 2022-10-14 09:25 | disposition home or self-care (01) ==
LOC: HO.WFDLDS 09:24
PROVIDERS: Visit Provider Nurse Practitioner Family
DX: Z13.1 Encounter for screening for diabetes mellitus (principal)
CPT/HCPCS: 36415; 80048

== ENCOUNTER 2022-10-16 09:08 | Outpatient (REF) | payer MEDICARE, SELFPAY | END 2022-10-16 09:09 | disposition home or self-care (01) | LOC: HO.MAMMO 09:08 | PROVIDERS: Visit Provider Internal Medicine | DX: Z12.31 Encounter for screening mammogram for malignant neoplasm of breast (principal) | CPT/HCPCS: 77063; 77067 ==

== ENCOUNTER → 2022-10-16 09:30 | Outpatient (BNV) | payer MEDICARE, SELFPAY | PROVIDERS: Visit Provider Radiology Diagnostic Radiology | DX: Z12.31 Encounter for screening mammogram for malignant neoplasm of breast (principal) | CPT/HCPCS: 77063; 77067 ==

== ENCOUNTER 2022-10-17 09:37 | Outpatient (AMB) | payer MEDICARE, SELFPAY ==
--- NOTE | 2022-10-17 09:52 | MHC.PC.OV ---
Vital Signs 10/17/22 09:53 Height 5 ft 6 in Weight 220 lb 6 oz BMI 35.6 BP 120/62 Blood Pressure Location Lt brachial Position Sitting Pulse 92 Pulse Source Pulse Oximeter Pulse Oximetry (%) 94 Oxygen Delivery Method Room Air Intake Visit Reasons: 6mth f/u Intake Note: Patient is here to follow up on Hyperthyroidism, HTN. Air Transportation Provider Required: No Mental Health Program Manager: Not Required per policy Accompanied by: Self / Same As Patient Allergies No Known Allergies [No Known Allergies*] Allergy (Verified 10/21/22 06:00) Medication List - Last Reconciled 10/21/22 by Seymour Wild MD amlodipine 10 mg PO DAILY aspirin 81 mg PO DAILY calcium carbonate 500 mg PO DAILY cetirizine (Zyrtec) 10 mg PO DAILY cholecalciferol (vitamin D3) 50 mcg PO DAILY cyclobenzaprine 10 mg PO BEDTIME lisinopril 40 mg (2 x 20 mg) PO DAILY methimazole 10 mg (2 x 5 mg) PO DAILY 30 days multivitamin 1 tab PO DAILY Tobacco use date assessed: 10/17/22 Fall risk assessment: No Falls in past year Last assessed Fall Risk: 10/17/22 Dental Screening Dental Screen Date: 10/17/22 Did you have a dental visit in the last 12 months?: No Did you have a dental problem in the last 6 months where you did not have access to dental care?: No Was dental information given to patient?: No HPI 6mth f/u HPI Details 77-year-old female presents to the office to discuss her chronic medical conditions. Patient is compliant with all medications and able to do all activities of daily living. She is up-to-date on her mammogram, DEXA scan. Patient lives and apparently, is driving at night. No urinary incontinence. [facility] Medical History Cataract (lens) fragments in eye following cataract surgery, left eye Class 2 severe obesity with body mass index (BMI) of 35 to 39.9 with serious comorbidity Essential (primary) hypertension Hyperthyroidism Microscopic hematuria Multinodular thyroid Tobacco use disorder Vitamin D deficiency Surgical History History of colonoscopy History of tonsillectomy Hx of cataract extraction Family History Father Angina at rest Melanoma Cardiac disease Leukemia Mother Hypertension Macular degeneration Maternal Grandfather Substance abuse Social History Housing: Apartment Alcohol intake: current Alcohol intake frequency: does not drink Patient Tobacco Use Status: Current everyday Tobacco user Tobacco use type: Cigarette Cigarettes Per Day: 7 e-Cigarette/Vaping Use: Never Used Second Hand Smoke Exposure: Yes service: No Current occupational status: retired Cognitive needs: No Hearing needs: Yes (hearing aides) Vision needs: Yes (Glasses) Questionnaire PHQ-9 Over the last 2 weeks, how often have you been bothered by any of the following problems? Depression Screening Interpretation: Negative Source: Developed by Drs. Geronimo Davis, Tosha Madrid, Marlo Oneill and colleagues, with an educational ruiz from [employer]. Thrive Questionnaire Date Thrive assessed: 04/18/22 Currently or been in a relationship where the following occur: no concerns reported ODILON-7 AMB Questionnaire ODILON-7 Date ODILON - 7 assessed: 04/18/22 Source: Developed by Drs. Geronimo Davis, Tosha Madrid, Marlo Oneill and colleagues, with an educational ruiz from [employer]. Physical exam (Primary Care) Vital Signs: Last Vital Signs Pulse 92 10/17/22 09:53 BP 120/62 10/17/22 09:53 Pulse Ox 94 10/17/22 09:53 Oxygen Delivery Method Room Air 10/17/22 09:53 Care Plan Goal for BP management: Blood pressure is in range. Continue medications at same dosage. BMI result Body Mass Index 35.6 BMI Assessment/Plan discussion: High (1 lb per week weight loss suggested.) BMI High, discussed plan: lifestyle, weight reduction, dietary and physical activity Tobacco/Smoking Status: Tobacco use Status Tobacco use date assessed 10/17/22 10/17/22 09:57 Patient Tobacco Use Status Current everyday Tobacco 10/17/22 09:57 Tobacco use type Cigarette 10/17/22 09:57 e-Cigarette/Vaping Use Never Used 10/17/22 09:57 Are you ready to quit: No Tobacco cessation counseling provided: Yes Items discussed: Other CPT code: Less than 3 minutes Depression Screening Interpretation: Negative Thrive Assessment: Date of Thrive Assessment Date Thrive assessed 04/18/22 10/17/22 09:57 Currently or been in a relationship where the following occur: no concerns reported Advance Care Planning discussion: Exists, not on file Date of discussion: 10/17/22 Forms completed: Health Care Proxy and MOLST Time spent: 1-15 minutes, not on file Actual minutes spent: 5 Const General: cooperative, healthy appearing and comfortable HENMT Head: Yes normal to inspection and Yes atraumatic Eyes General: appearance normal, both eyes and all related structures Neck Neck: Yes normal visual inspection and Yes full ROM Chest Chest palpation & inspection: normal inspection of the chest Resp Effort & Inspection: normal respiratory effort Auscultation: clear to auscultation bilaterally Cardio Jugular venous distension: no JVD Palpation: normal PMI Rate: regular rate Heart sounds: S1 normal heart sound present and S2 normal heart sound present GI Palpation (GI): Soft to palpation and No hepatosplenomegaly present Extrem General: Yes normal to inspection and Yes full ROM Assessment and Plan Assessment & Plan (1) Hyperthyroidism: Code(s): E05.90 - Thyrotoxicosis, unspecified without thyrotoxic crisis or storm Plan: This condition is being managed by mineral technologist. TSH is in range. She has pending blood work from them. The dosage of methimazole is being adjusted by them. (2) Class 2 severe obesity with body mass index (BMI) of 35 to 39.9 with serious comorbidity: Code(s): E66.01 - Morbid (severe) obesity due to excess calories Plan: Counseling on the importance of diet and exercise done (3) Tobacco use disorder: Code(s): F17.200 - Nicotine dependence, unspecified, uncomplicated Plan: Patient continues to smoke despite risks being explained to her. (4) Essential (primary) hypertension: Code(s): I10 - Essential (primary) hypertension Plan: Blood pressure is in range. Continue medications at same dosage. Coding Level of Care Code Est Pt Level 4 (61918) Diagnoses Hyperthyroidism E05.90 Class 2 severe obesity with body mass index (BMI) of 35 to 39.9 with serious comorbidity E66.01 Tobacco use disorder F17.200 Essential (primary) hypertension I10 Additional Codes Vital Signs *Quality* - Advance Care Planning discussion: Exists, not on file ([id number]) Vital Signs *Quality* - Time spent: 1-15 minutes, not on file ([id number])
[2022-10-17 09:53] VITALS: BP 120/62; PULSE 92; O2SAT 94; BMI 35.6
== END 2022-10-17 10:24 | disposition home or self-care (01) ==
PROVIDERS: Visit Provider Internal Medicine
DX: E05.90 Thyrotoxicosis, unspecified without thyrotoxic crisis or storm (principal); E66.01 Morbid (severe) obesity due to excess calories; F17.200 Nicotine dependence, unspecified, uncomplicated; Z68.35 Body mass index [BMI] 35.0-35.9, adult; I10 Essential (primary) hypertension; Z00.00 Encounter for general adult medical examination without abnormal findings; Z71.89 Other specified counseling
CPT/HCPCS: 1123F; 99214

== ENCOUNTER 2023-01-21 12:09 | Outpatient (REF) | payer MEDICARE, SELFPAY ==
[2023-01-21 15:36] LABS: Free T4 (Free Thyroxine) 1.04 ng/dL (0.71-1.85)
[2023-01-22 16:29] LABS: Triiodothyronine T3 Total 156 ng/dL (76-181)
== END 2023-01-21 12:10 | disposition home or self-care (01) ==
LOC: HO.WFDLDS 12:09
PROVIDERS: Visit Provider Internal Medicine
DX: E05.90 Thyrotoxicosis, unspecified without thyrotoxic crisis or storm (principal)
CPT/HCPCS: 36415; 84439; 84480

== ENCOUNTER 2023-01-30 09:55 | Outpatient (AMB) | payer MEDICARE, SELFPAY ==
[2023-01-30 09:56] VITALS: BP 120/62; PULSE 111; BMI 36.7
--- NOTE | 2023-01-30 09:56 | A.OFFVIS_ITS ---
Intake Vital Signs 01/30/23 09:56 Height 5 ft 6 in Weight 227 lb 4.745 oz BMI 36.7 BP 120/62 Blood Pressure Location Lt brachial Position Sitting Pulse 111 H Pulse Source Pulse Oximeter Intake Visit Reasons: F/U NTMNG Intake Note: Patient present today for NTMNG follow up. 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 The patient last saw Dr. Thomas on 11/08/2021 She has a known history of a multinodular thyroid. She underwent FNA biopsy 03/19/2018 of her LLP 3.2 cm nodule with benign cytology, and also of the RLP 4.7 cm nodule which had benign cytology. Repeat thyroid US revealed growth of her LUP nodule. She underwent FNA biopsy of her LUP 1.2 cm thyroid nodule 07/27/2020 with benign cytology. Currently denies any dysphagia or hoarseness of voice. Denies sensation of swelling in the neck or difficulty breathing while lying flat. Denies any tenderness in the neck. Denies any symptoms of hyper or hypothyroidism. Denies any history of head or neck irradiation. Denies any family history of thyroid cancer. Had biopsy of nodules in the past. Thyroid US: 09/19/2021 SIZE: Measurements of the thyroid lobes and nodules are given in sagittal, anteroposterior and transverse dimensions respectively. Right Thyroid Lobe: 7.1 x 4.6 x 5.5 cm, volume 93.4 mL. Previously 8.2 x 4.2 x 3.8 cm, volume 68.6 mL. Parenchyma: The gland echotexture is heterogeneous. Thyroid vascularity is normal. Left Thyroid Lobe: 8.0 x 4.3 x 2.1 cm, volume 38.9 mL. Previously 6.2 x 3.0 x 1.7 cm, volume 16.4 mL. Parenchyma: The gland echotexture is heterogeneous. Thyroid vascularity is normal. Isthmus: 1.0 cm in maximum AP dimension. Previously 0.8 cm. Estimated total number of nodules greater than or equal to 1 cm: 3. 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 Location: Right mid/inferior. ?? ? Size: 5.5 x 4.4 x 3.9 cm, volume 49.3 mL. ?? ? Previously: 5.2 x 4.1 x 3.7 cm, volume 41.9 mL. ?? ? Nodule characteristics: ?? ? Composition: Mixed cystic and solid (1). ?? ? Echogenicity: Hyperechoic (1). ?? ? Shape: Taller than wide (3). ?? ? Margins: Smooth (0). ?? ? Echogenic Foci: Macrocalcifications (1). Punctate echogenic foci (3). ? ACR TI-RADS total points: 9 Previous: 6 ?? ? ACR TI-RADS category: 5 Previous: 4 ? Significant change in size (>/= 20% in 2 dimensions and minimal increase of 2 mm or 50% or greater increase in volume): Mild increase in volume ?? ? Change in features: None ?? ? Change in ACR TI-RADS risk category: Increased 2.? Location: Left superior. ?? ? Size: 0.8 x 0.6 x 0.8 cm, volume 0.2 mL. ?? ? Previously: 1.2 x 1.0 x 1.0 cm, volume 0.6 mL. ?? ? Nodule characteristics: ?? ? Composition: Solid (2). ?? ? Echogenicity: Hyperechoic (1). ?? ? Shape: Not taller than wide (0). ?? ? Margins: Ill-defined (0). ?? ? Echogenic Foci: None (0). ? ACR TI-RADS total points: 3 Previous: 0 ?? ? ACR TI-RADS category: 3 Previous: 1 ? Significant change in size (>/= 20% in 2 dimensions and minimal increase of 2 mm or 50% or greater increase in volume): Minimally smaller ?? ? Change in features: None ?? ? Change in ACR TI-RADS risk category: Minimal increase in TI-RADS. 3.? Location: Right mid/inferior. ?? ? Size: 3.2 x 2.3 x 1.9 cm, volume 7.0 mL. ?? ? Previously: 2.9 x 3.1 x 2.0 cm, volume 9.5 mL. ?? ? Nodule characteristics: ?? ? Composition: Solid (2). ?? ? Echogenicity: Hyperechoic (1). ?? ? Shape: Taller than wide (3). ?? ? Margins: Smooth (0). ?? ? Echogenic Foci: None (0).? ACR TI-RADS total points: 6 Previous: 4 ?? ? ACR TI-RADS category: 4 Previous: 4 ? Significant change in size (>/= 20% in 2 dimensions and minimal increase of 2 mm or 50% or greater increase in volume): ?? ? Change in features: None ?? ? Change in ACR TI-RADS risk category: Minimal change NODES: No lymphadenopathy is seen in the tissue surrounding the thyroid gland. Labs: Laboratory Tests 04/28/20 Unknown TSH 1.07 Free T4 1.02 On 10 mg of MMI. No sx of hypo or hyperthyroidism. No obstructive sx PFSH Medical History Cataract (lens) fragments in eye following cataract surgery, left eye Class 2 severe obesity with body mass index (BMI) of 35 to 39.9 with serious comorbidity Essential (primary) hypertension Hyperthyroidism Microscopic hematuria Multinodular thyroid Tobacco use disorder Vitamin D deficiency Surgical History History of colonoscopy History of tonsillectomy Hx of cataract extraction Family History Father Angina at rest Melanoma Cardiac disease Leukemia Mother Hypertension Macular degeneration Maternal Grandfather Substance abuse Social History Housing: Apartment Alcohol intake: current Alcohol intake frequency: does not drink Patient Tobacco Use Status: Current everyday Tobacco user Tobacco use type: Cigarette Cigarettes Per Day: 7 e-Cigarette/Vaping Use: Never Used Second Hand Smoke Exposure: Yes service: No Current occupational status: retired Cognitive needs: No Hearing needs: Yes (hearing aides) Vision needs: Yes (Glasses) Physical Exam Const Other: Thyroid gland is normal size weighs about 15 g. There are no palpable thyroid nodule Assessment & Plan Assessment & Plan (1) Multinodular thyroid: Code(s): E04.2 - Nontoxic multinodular goiter Plan: This 77-year-old white female with history of toxic multinodular goiter status post multiple biopsies of right and left thyroid nodules with benign cytology. Patient appears clinically biochemically euthyroid on methimazole 10 mg q.d.. Recent thyroid ultrasound shows no significant change in the size of the nodules. Plan is continue the current management. Repeat thyroid ultrasound will be ordered about 2-3 years time. I did order a CBC and liver panel (2) Hyperthyroidism: Code(s): E05.90 - Thyrotoxicosis, unspecified without thyrotoxic crisis or storm Plan: Clinically and biochemically euthyroid on methimazole 10 mg Orders: Orders Complete Blood Count Auto Diff Today E04.2 - Nontoxic multinodular goiter, E05.90 - Thyrotoxicosis, unspecified without thyrotoxic crisis or storm Liver Panel Today E05.90 - Thyrotoxicosis, unspecified without thyrotoxic crisis or storm Coding Level of Care Code Est Pt Level 3 (13107) Diagnoses Multinodular thyroid E04.2 Hyperthyroidism E05.90
== END 2023-01-30 10:18 | disposition home or self-care (01) ==
PROVIDERS: PCP Nurse Practitioner Family; Visit Provider Internal Medicine Endocrinology, Diabetes & Metabolism
DX: E04.2 Nontoxic multinodular goiter (principal); E05.90 Thyrotoxicosis, unspecified without thyrotoxic crisis or storm
CPT/HCPCS: 99213

== ENCOUNTER → 2023-01-30 09:55 | Outpatient (BNVA) | payer MEDICARE, SELFPAY | PROVIDERS: Visit Provider Internal Medicine Endocrinology, Diabetes & Metabolism | DX: E04.2 Nontoxic multinodular goiter (principal); E05.90 Thyrotoxicosis, unspecified without thyrotoxic crisis or storm | CPT/HCPCS: 99212 ==

== ENCOUNTER 2023-02-03 10:33 | Outpatient (REF) | payer MEDICARE, SELFPAY ==
[2023-02-03 14:39] LABS: MANUAL DIFF FLAG NO
[2023-02-03 14:53] LABS: Basophils Absolute Auto 0.1 X10*3/uL (0.0-0.2); Basophils Percent Auto 0.6 % (0-2); Eosinophils Absolute Auto 0.2 X10*3/uL (0.0-0.4); Eosinophils Percent Auto 1.7 % (0-4); Hematocrit 50.7 % (37.0-47.0); Hemoglobin 17.1 g/dl (12.0-16.0); Imm Gran Abs Auto 0.05 X10*3/uL (0.00-0.03); Imm Gran Pct Auto 0.5 % (0.0-0.4); Lymphocytes Absolute Auto 2.3 X10*3/uL (1.2-4.9); Lymphocytes Percent Auto 22.5 % (20-40); Mean Corpuscular HGB Conc 33.7 g/dl (31.0-35.0); Mean Corpuscular Hemoglobin 31.8 pg (27.0-33.0); Mean Corpuscular Volume 94.4 fL (80.0-98.0); Mean Platelet Volume 11.8 fL (9.4-12.3); Monocytes Absolute Auto 1.2 X10*3/uL (0.1-1.2); Monocytes Percent Auto 11.3 % (2-11); Neutrophils Absolute Auto 6.6 x10*3/uL (2.0-8.3); Neutrophils Percent Auto 63.4 % (45-73); Platelet Count 178 X10*3/uL (160-400); Red Blood Count 5.37 X10*6/uL (4.20-5.50); Red Cell Distribution Width 13.5 % (11.0-16.0); White Blood Count 10.4 X10*3/uL (4.8-10.8)
[2023-02-03 14:59] LABS: Alanine Aminotransferase 27 U/L (0-31); Albumin Level 4.2 g/dL (3.5-5.0); Alkaline Phosphatase 108 U/L (39-117); Aspartate Amino Transferase 24 U/L (5-31); Bilirubin Direct 0.2 mg/dL (0.0-0.5); Bilirubin Total 0.7 mg/dL (0.0-1.0); Total Protein 7.4 g/dL (6.5-8.0)
== END 2023-02-03 10:34 | disposition home or self-care (01) ==
LOC: HO.WFDLDS 10:33
PROVIDERS: Visit Provider Internal Medicine Endocrinology, Diabetes & Metabolism
DX: E05.90 Thyrotoxicosis, unspecified without thyrotoxic crisis or storm (principal); E04.2 Nontoxic multinodular goiter
CPT/HCPCS: 36415; 80076; 85025

== ENCOUNTER 2023-02-19 09:23 | Outpatient (REF) | payer MEDICARE, SELFPAY ==
[2023-02-19 12:18] LABS: Free T4 (Free Thyroxine) 0.83 ng/dL (0.71-1.85); Thyroid Stimulating Hormone 3.11 uIU/mL (0.32-4.0)
== END 2023-02-19 09:24 | disposition home or self-care (01) ==
LOC: HO.WFDLDS 09:23
PROVIDERS: Visit Provider Internal Medicine Endocrinology, Diabetes & Metabolism
DX: E05.90 Thyrotoxicosis, unspecified without thyrotoxic crisis or storm (principal)
CPT/HCPCS: 36415; 84439; 84443

== ENCOUNTER 2023-02-27 14:53 | Outpatient (AMB) | payer MEDICARE, SELFPAY ==
--- NOTE | 2023-02-27 14:49 | A.OFFPC_ITS ---
Intake Visit Reasons: High Hemoglobin Intake Note: Patient is here today for high hemoglobin Trim Die Maker Required: No Assistant Front Office Manager: Not Required per policy Accompanied by: Self / Same As Patient Allergies No Known Allergies [No Known Allergies*] Allergy (Verified 02/27/23 14:50) Tobacco use date assessed: 10/17/22 Fall risk assessment: No Falls in past year Last assessed Fall Risk: 02/27/23 Dental Screening Dental Screen Date: 02/27/23 Did you have a dental visit in the last 12 months?: No Did you have a dental problem in the last 6 months where you did not have access to dental care?: No Was dental information given to patient?: No HPI High Hemoglobin HPI Details 78-year-old female wishes to discuss her medical health via tele health. She wishes to discuss her recent complete blood picture counts. She is at baseline state of health and compliant with medications. Able to function and do all her activities of daily living. FORMERLY [facility] Medical History Cataract (lens) fragments in eye following cataract surgery, left eye Class 2 severe obesity with body mass index (BMI) of 35 to 39.9 with serious comorbidity Essential (primary) hypertension Hyperthyroidism Microscopic hematuria Multinodular thyroid Tobacco use disorder Vitamin D deficiency Surgical History History of colonoscopy Hx of cataract extraction History of tonsillectomy Family History Father Angina at rest Melanoma Cardiac disease Leukemia Mother Hypertension Macular degeneration Maternal Grandfather Substance abuse Social History (Updated 02/27/23 @ 14:52 by TOMI Armendariz) Housing: Apartment Alcohol intake: current Alcohol intake frequency: does not drink Patient Tobacco Use Status: Current everyday Tobacco user Tobacco use type: Cigarette Cigarettes Per Day: 8 e-Cigarette/Vaping Use: Never Used Second Hand Smoke Exposure: Yes service: No Current occupational status: retired Cognitive needs: No Hearing needs: Yes (hearing aides) Vision needs: Yes (Glasses) Questionnaire Thrive Questionnaire Date Thrive assessed: 04/18/22 ODILON-7 AMB Questionnaire ODILON-7 Date ODILON - 7 assessed: 04/18/22 Source: Developed by Drs. Geronimo Davis, Tosha Madrid, Marlo Oneill and colleagues, with an educational ruiz from [employer]. Review of Systems Const Denies body aches Eyes Denies blurry vision ENT Reports Normal hearing present Card Denies syncope Resp Denies cough GI Denies constipation and Denies diarrhea Neuro Reports Normal hearing present and Denies syncope Physical exam (Primary Care) Tobacco/Smoking Status: Tobacco use Status Tobacco use date assessed 10/17/22 02/27/23 14:52 Patient Tobacco Use Status Current everyday Tobacco 02/27/23 14:52 Tobacco use type Cigarette 02/27/23 14:52 e-Cigarette/Vaping Use Never Used 02/27/23 14:52 Thrive Assessment: Date of Thrive Assessment Date Thrive assessed 04/18/22 02/27/23 14:52 Neuro Cranial nerves: Yes Normal hearing present Telehealth Telehealth Location of provider rendering services: practice address Location of patient: address on file Patient Identification confirmed using: Name, : Yes Telehealth method: voice only Patient verbally consented to treatment: Yes Patient verbally consented to billing insurance company: Yes Patient informed of any privacy concerns related to visit: Yes Minutes spent on Phone/Video with Pt.: 15 Assessment and Plan Assessment & Plan (1) Essential (primary) hypertension: Code(s): I10 - Essential (primary) hypertension Plan: Condition is stable. Continue current medications. (2) Erythrocytosis: Code(s): D75.1 - Secondary polycythemia Plan: 15 minutes spent reviewing previous blood work. Hemoglobin is trending upwards. Patient is asymptomatic currently. We will repeat blood work in April and monitor. Coding Level of Care Code Tele Est Pt Level 3 (59372) Diagnoses Essential (primary) hypertension I10 Erythrocytosis D75.1
== END 2023-02-27 17:01 | disposition home or self-care (01) ==
LOC: HO.HMGH 14:53
PROVIDERS: PCP Internal Medicine; Visit Provider Internal Medicine
DX: I10 Essential (primary) hypertension (principal); D75.1 Secondary polycythemia
CPT/HCPCS: 99442

== ENCOUNTER → 2023-03-28 10:54 | Outpatient (BNV) | payer MEDICARE, SELFPAY | PROVIDERS: PCP Internal Medicine; Referring Provider Internal Medicine; Visit Provider Internal Medicine | DX: D75.1 Secondary polycythemia (principal) | CPT/HCPCS: 99204; 99214; G2211 ==

== ENCOUNTER 2023-04-08 12:26 | Outpatient (REF) | payer MEDICARE, SELFPAY ==
--- NOTE | ~2023-04-08 | CT_ITS ---
EXAMINATION: CT CHEST SCREENING CLINICAL INFORMATION: Small-caliber, 1 pack per day, 50 years smoker. COMPARISON: 03/26/2021 TECHNIQUE: Multidetector volumetric CT imaging of the chest is performed without contrast using low dose technique. Additional 2D coronal and sagittal reformatted images and axial 3D maximum intensity projection (MIP) images are generated on the CT workstation. This CT examination was performed using dose optimization techniques as appropriate, variously including the following: *Automated exposure control *Adjustment of mA and/or kV according to patient size (this includes techniques or standardized protocols for targeted exams where dose is matched to indication/reason for exam; i.e. extremities or head) *Use of iterative reconstruction technique DLP: 63 mGy-cm FINDINGS: LUNGS: Lungs are well-expanded without evidence of emphysema. There is linear calcifications seen in the right lower lobe, abating the fissure. These findings are stable. There are no lung nodules identified. There is stable fissure based thickening of the right minor fissure. MEDIASTINUM: There is thyroidomegaly with right lobe low-attenuation nodule, correlate with thyroid ultrasound. There is no mediastinal or hilar lymphadenopathy. No aortic aneurysmal dilatation or pericardial effusion seen. CORONARY ARTERY CALCIFICATION: Present PLEURA: There is no pleural effusion. No pleural mass or thickening. AXILLA: No lymphadenopathy. UPPER ABDOMEN: Punctate calcifications seen in upper pole of right kidney OSSEOUS STRUCTURES: Unremarkable. CT/CT lung screening IMPRESSION: 1. No suspicious lung nodules. 2. There is thyroidomegaly with right lobe low-attenuation nodule, correlate with thyroid ultrasound. ASSESSMENT: Lung-RADS category 2 benign RECOMMENDATION: Low-dose cranial CT scan
== END 2023-04-08 12:27 | disposition home or self-care (01) ==
LOC: HO.CT 12:26
PROVIDERS: PCP Internal Medicine; Visit Provider Physician Assistant Medical
DX: Z12.2 Encounter for screening for malignant neoplasm of respiratory organs (principal); F17.210 Nicotine dependence, cigarettes, uncomplicated
CPT/HCPCS: 71271

== ENCOUNTER 2023-04-11 09:34 | Outpatient (REF) | payer MEDICARE, SELFPAY ==
[2023-04-11 11:40] LABS: Appearance Urine Clear; Color Urine Yellow; Glucose Urine UA Negative (Negative); Leukocyte Esterase Urine Small (1+) (Negative); Nitrite Urine Negative (Negative); PH 6.5 (5.0-9.0); UMIC TRIGGER UACC YES; Urine Blood Negative (Negative); Urine Ketones Negative (Negative); Urine Protein Negative (Neg-Trace)
[2023-04-11 11:58] LABS: Bacteria Urine None Seen (None Seen); Hyaline Casts Urine 0-2 /LPF (0-2); RBC Urine 0-2 /HPF (0-2); UACC Culture Trigger YES
== END 2023-04-11 09:35 | disposition home or self-care (01) ==
LOC: HO.WFDLDS 09:34
PROVIDERS: Visit Provider Internal Medicine
DX: R39.9 Unspecified symptoms and signs involving the genitourinary system (principal)
CPT/HCPCS: 81001; 87086

== ENCOUNTER 2023-05-07 09:25 | Outpatient (AMB) | payer MEDICARE, SELFPAY ==
--- NOTE | 2023-05-07 09:53 | MHC.PC.OV ---
Vital Signs 05/07/23 09:55 Height 5 ft 6 in Weight 231 lb 2 oz BMI 37.3 BP 118/78 Blood Pressure Location Lt brachial Position Sitting Pulse 90 Pulse Source Pulse Oximeter Pulse Oximetry (%) 95 Oxygen Delivery Method Room Air Intake Visit Reasons: 6mth f/u Intake Note: Patient is here to follow up on HTN. Roll Forger Required: No Wet End Helper: Not Required per policy Accompanied by: Self / Same As Patient Allergies No Known Allergies [No Known Allergies*] Allergy (Verified 05/07/23 09:55) Tobacco use date assessed: 05/07/23 Fall risk assessment: No Falls in past year Last assessed Fall Risk: 05/07/23 Dental Screening Dental Screen Date: 05/07/23 Did you have a dental visit in the last 12 months?: No Did you have a dental problem in the last 6 months where you did not have access to dental care?: No Was dental information given to patient?: No HPI 6mth f/u HPI Details 78-year-old female presents to the office to discuss her chronic medical conditions. Patient is complaining of swelling in her feet. It is extending above her ankles and into the right and left leg. She does not report any shortness of breath. Able to function and do all activities of daily life. Does not use any crutches or walker to ambulate. She is able to sleep in a bed lying flat. Recently had a CT scan for lung cancer screening and would like to know the results. FORMERLY [facility], [facility] Medical History Hyperthyroidism Class 2 severe obesity with body mass index (BMI) of 35 to 39.9 with serious comorbidity Tobacco use disorder Microscopic hematuria Vitamin D deficiency Multinodular thyroid Essential (primary) hypertension Cataract (lens) fragments in eye following cataract surgery, left eye Surgical History History of colonoscopy Hx of cataract extraction History of tonsillectomy Family History Father Angina at rest Melanoma Cardiac disease Leukemia Mother Hypertension Macular degeneration Maternal Grandfather Substance abuse Social History (Updated 05/07/23 @ 10:04 by TOMI Armendariz) Housing: Apartment Alcohol intake: current Alcohol intake frequency: holidays/special occasions only Patient Tobacco Use Status: Current everyday Tobacco user Tobacco use type: Cigarette Cigarette Packs Per Day: 0.5 Cigarettes Per Day: 8 e-Cigarette/Vaping Use: Never Used Second Hand Smoke Exposure: Yes service: No Current occupational status: retired Cognitive needs: No Hearing needs: Yes (hearing aides) Vision needs: Yes (Glasses) Questionnaire PHQ-9 Over the last 2 weeks, how often have you been bothered by any of the following problems? 1. Little interest or pleasure in doing things: not at all 2. Feeling down, depressed, or hopeless: not at all 3. Trouble falling or staying asleep, or sleeping too much: not at all 4. Feeling tired or having little energy: not at all 5. Poor appetite or overeating: not at all 6. Feeling bad about yourself - or that you are a failure or have let yourself or your family down: not at all 7. Trouble concentrating on things, such as reading the newspaper or watching television: not at all 8. Moving or speaking so slowly that other people could have noticed. Or the opposite - being so fidgety or restless that you have been moving around a lot more than usual: not at all 9. Thoughts that you would be better off or of hurting yourself in some way: not at all Total score: 0 Depression Screening Interpretation: Negative Depression Screening Done: Yes Source: Developed by Drs. Geronimo aDvis, Tosha Madrid, Marlo Oneill and colleagues, with an educational ruiz from [employer]. Thrive Questionnaire Date Thrive assessed: 05/07/23 I am a: Patient What is your living situation today?: I have a steady place to live Within the past 12 months, did the food you bought not last and you didn't have the money to get more?: Never true Within the past 12 months, did you worry whether your food would run out before you got money to buy more?: Never true Do you have trouble paying for medicines?: No Do you have trouble getting transportation to medical appointments?: No Do you have trouble paying your heating and electricity bill?: No Do you have trouble taking care of your child, family member or friend?: No Do you have trouble with day-to-day activities such as bathing, preparing meals, shopping, managing finances, etc.?: No Are you currently unemployed and looking for a job?: No Are you interested in more education?: No Currently or been in a relationship where the following occur: no concerns reported THRIVE Score: 0 AUDIT C Alcohol Use Questionnaire (AUDIT-C) 1. How often do you have a drink containing alcohol?: Never Total Score: 0 ODILON-7 AMB Questionnaire ODILON-7 Date ODILON - 7 assessed: 05/07/23 Feeling nervous, anxious, or on edge: 0 = Not at all Not being able to stop or control worryin = Not at all Worrying too much about different things: 0 = Not at all Trouble relaxin = Not at all Being so restless that it is hard to sit still: 0 = Not at all Becoming easily annoyed or irritable: 0 = Not at all Feeling afraid as if something awful might happen: 0 = Not at all Total ODILON-7 score (0-4 normal; 5-9 mild; 10-14 moderate; 15-21 severe): 0 Source: Developed by Drs. Geronimo Davis, Tosha Madrid, Marlo Oneill and colleagues, with an educational ruiz from [employer]. Physical exam (Primary Care) Vital Signs: Last Vital Signs Pulse 90 05/07/23 09:55 BP 118/78 05/07/23 09:55 Pulse Ox 95 05/07/23 09:55 Oxygen Delivery Method Room Air 05/07/23 09:55 Care Plan Goal for BP management: Blood pressure is stable. Continue current management. BMI result Body Mass Index 37.3 BMI Assessment/Plan discussion: High (1 lb per week weight loss suggested.) BMI High, discussed plan: lifestyle, weight reduction and dietary Tobacco/Smoking Status: Tobacco use Status Tobacco use date assessed 05/07/23 05/07/23 10:06 Patient Tobacco Use Status Current everyday Tobacco 05/07/23 10:06 Tobacco use type Cigarette 05/07/23 10:06 e-Cigarette/Vaping Use Never Used 05/07/23 10:06 Are you ready to quit: No Tobacco cessation counseling provided: Yes CPT code: Less than 3 minutes PHQ-9: PHQ-9 Score PHQ-9: Total score 0 05/07/23 10:06 Depression Screening Interpretation: Negative Thrive Assessment: Date of Thrive Assessment Date Thrive assessed 05/07/23 05/07/23 10:06 Currently or been in a relationship where the following occur: no concerns reported Const General: cooperative and healthy appearing Nutritional Appearance: well nourished Orientation/consciousness: patient oriented x3 Limitations: no limitations HENMT Head: Yes normal to inspection Eyes General: appearance normal, both eyes and all related structures Neck Neck: Yes normal visual inspection Chest Chest palpation & inspection: normal palpation of entire chest wall Resp Effort & Inspection: normal respiratory effort Neuro General: patient oriented x3 Extrem Other: Right and left leg: Pitting edema over the feet, and carlson. Assessment and Plan Assessment & Plan (1) Polycythemia: Code(s): D75.1 - Secondary polycythemia Plan: Patient has chronic polycythemia. She sees a ncr operator. Continue to monitor. (2) Class 2 severe obesity with body mass index (BMI) of 35 to 39.9 with serious comorbidity: Code(s): E66.01 - Morbid (severe) obesity due to excess calories Plan: Counseling on the importance of diet and exercise done. (3) Tobacco use disorder: Code(s): F17.200 - Nicotine dependence, unspecified, uncomplicated Plan: Patient was encouraged to quit smoking. CT scan done recently was normal. There was a thyromegaly with a thyroid nodule that was noted. (4) Screening for lung cancer: Code(s): Z12.2 - Encounter for screening for malignant neoplasm of respiratory organs (5) Multinodular thyroid: Code(s): E04.2 - Nontoxic multinodular goiter Plan: Patient has regular follow-up with the tape making machine operator. (6) Edema of both feet: Code(s): R60.0 - Localized edema Coding Level of Care Code Est Pt Level 4 (21163) Diagnoses Polycythemia D75.1 Class 2 severe obesity with body mass index (BMI) of 35 to 39.9 with serious comorbidity E66.01 Tobacco use disorder F17.200 Screening for lung cancer Z12.2 Multinodular thyroid E04.2 Edema of both feet R60.0
[2023-05-07 09:55] VITALS: BP 118/78; PULSE 90; O2SAT 95; BMI 37.3
== END 2023-05-07 10:52 | disposition home or self-care (01) ==
PROVIDERS: PCP Internal Medicine; Visit Provider Internal Medicine
DX: D75.1 Secondary polycythemia (principal); E66.01 Morbid (severe) obesity due to excess calories; F17.210 Nicotine dependence, cigarettes, uncomplicated; Z68.37 Body mass index [BMI] 37.0-37.9, adult; Z12.2 Encounter for screening for malignant neoplasm of respiratory organs; E04.2 Nontoxic multinodular goiter; R60.0 Localized edema
CPT/HCPCS: 99214

== ENCOUNTER 2023-07-31 08:44 | Outpatient (AMB) | payer MEDICARE, SELFPAY ==
[2023-07-31 08:51] VITALS: BP 130/78; PULSE 98; BMI 36.5
--- NOTE | 2023-07-31 08:51 | MHC.OFFVIS ---
Vital Signs 07/31/23 08:51 Height 5 ft 6 in Weight 225 lb 15.581 oz BMI 36.5 BP 130/78 Blood Pressure Location Lt brachial Position Sitting Pulse 98 Pulse Source Pulse Oximeter Intake Visit Reasons: F/U NTMNG-confirmed Intake Note: Patient present today for NTMNG follow up visit. Commuter Train Operator Required: No Accompanied by: Self / Same As Patient Allergies No Known Allergies [No Known Allergies*] Allergy (Verified 07/31/23 08:55) Medication List - Last Reconciled 07/31/23 by Geronimo Artis MD amlodipine 10 mg PO DAILY aspirin 81 mg PO DAILY calcium carbonate 500 mg PO BID cholecalciferol (vitamin D3) 50 mcg PO DAILY lisinopril 40 mg (2 x 20 mg) PO DAILY methimazole 10 mg (2 x 5 mg) PO DAILY 30 days multivitamin 1 tab PO DAILY vitamin A-vitamin C-vit E-min 1 tab PO DAILY HPI Comments Details: 77 YO F who is seen in F/U for a Multinodular Goiter. She has a known history of a multinodular thyroid. She underwent FNA biopsy 03/19/2018 of her LLP 3.2 cm nodule with benign cytology, and also of the RLP 4.7 cm nodule which had benign cytology. Repeat thyroid US revealed growth of her LUP nodule. She underwent FNA biopsy of her LUP 1.2 cm thyroid nodule 07/27/2020 with benign cytology. Currently denies any dysphagia or hoarseness of voice. Denies sensation of swelling in the neck or difficulty breathing while lying flat. Denies any tenderness in the neck. Denies any symptoms of hyper or hypothyroidism. Denies any history of head or neck irradiation. Denies any family history of thyroid cancer. Had biopsy of nodules in the past. Thyroid US: 09/19/2021 SIZE: Measurements of the thyroid lobes and nodules are given in sagittal, anteroposterior and transverse dimensions respectively. Right Thyroid Lobe: 7.1 x 4.6 x 5.5 cm, volume 93.4 mL. Previously 8.2 x 4.2 x 3.8 cm, volume 68.6 mL. Parenchyma: The gland echotexture is heterogeneous. Thyroid vascularity is normal. Left Thyroid Lobe: 8.0 x 4.3 x 2.1 cm, volume 38.9 mL. Previously 6.2 x 3.0 x 1.7 cm, volume 16.4 mL. Parenchyma: The gland echotexture is heterogeneous. Thyroid vascularity is normal. Isthmus: 1.0 cm in maximum AP dimension. Previously 0.8 cm. Estimated total number of nodules greater than or equal to 1 cm: 3. Operations Manager Station nodules are described as follows: 1.? Location: Right mid/inferior. ?? ? Size: 5.5 x 4.4 x 3.9 cm, volume 49.3 mL. ?? ? Previously: 5.2 x 4.1 x 3.7 cm, volume 41.9 mL. ?? ? Nodule characteristics: ?? ? Composition: Mixed cystic and solid (1). ?? ? Echogenicity: Hyperechoic (1). ?? ? Shape: Taller than wide (3). ?? ? Margins: Smooth (0). ?? ? Echogenic Foci: Macrocalcifications (1). Punctate echogenic foci (3). ? ACR TI-RADS total points: 9 Previous: 6 ?? ? ACR TI-RADS category: 5 Previous: 4 ? Significant change in size (>/= 20% in 2 dimensions and minimal increase of 2 mm or 50% or greater increase in volume): Mild increase in volume ?? ? Change in features: None ?? ? Change in ACR TI-RADS risk category: Increased 2.? Location: Left superior. ?? ? Size: 0.8 x 0.6 x 0.8 cm, volume 0.2 mL. ?? ? Previously: 1.2 x 1.0 x 1.0 cm, volume 0.6 mL. ?? ? Nodule characteristics: ?? ? Composition: Solid (2). ?? ? Echogenicity: Hyperechoic (1). ?? ? Shape: Not taller than wide (0). ?? ? Margins: Ill-defined (0). ?? ? Echogenic Foci: None (0). ? ACR TI-RADS total points: 3 Previous: 0 ?? ? ACR TI-RADS category: 3 Previous: 1 ? Significant change in size (>/= 20% in 2 dimensions and minimal increase of 2 mm or 50% or greater increase in volume): Minimally smaller ?? ? Change in features: None ?? ? Change in ACR TI-RADS risk category: Minimal increase in TI-RADS. 3.? Location: Right mid/inferior. ?? ? Size: 3.2 x 2.3 x 1.9 cm, volume 7.0 mL. ?? ? Previously: 2.9 x 3.1 x 2.0 cm, volume 9.5 mL. ?? ? Nodule characteristics: ?? ? Composition: Solid (2). ?? ? Echogenicity: Hyperechoic (1). ?? ? Shape: Taller than wide (3). ?? ? Margins: Smooth (0). ?? ? Echogenic Foci: None (0).? ACR TI-RADS total points: 6 Previous: 4 ?? ? ACR TI-RADS category: 4 Previous: 4 ? Significant change in size (>/= 20% in 2 dimensions and minimal increase of 2 mm or 50% or greater increase in volume): ?? ? Change in features: None ?? ? Change in ACR TI-RADS risk category: Minimal change NODES: No lymphadenopathy is seen in the tissue surrounding the thyroid gland. Labs: Laboratory Tests 04/28/20 Unknown TSH 1.07 Free T4 1.02 On 10 mg of MMI. No sx of hypo or hyperthyroidism. No obstructive sx PFSH Medical History Hyperthyroidism Class 2 severe obesity with body mass index (BMI) of 35 to 39.9 with serious comorbidity Tobacco use disorder Microscopic hematuria Vitamin D deficiency Multinodular thyroid Essential (primary) hypertension Cataract (lens) fragments in eye following cataract surgery, left eye Surgical History History of colonoscopy Hx of cataract extraction History of tonsillectomy Family History Father Angina at rest Melanoma Cardiac disease Leukemia Mother Hypertension Macular degeneration Maternal Grandfather Substance abuse Social History Housing: Apartment Alcohol intake: current Alcohol intake frequency: holidays/special occasions only Patient Tobacco Use Status: Current everyday Tobacco user Tobacco use type: Cigarette Cigarette Packs Per Day: 0.5 Cigarettes Per Day: 8 e-Cigarette/Vaping Use: Never Used Second Hand Smoke Exposure: Yes service: No Current occupational status: retired Cognitive needs: No Hearing needs: Yes (hearing aides) Vision needs: Yes (Glasses) Physical Exam Vital Signs: Last Vital Signs Pulse 98 07/31/23 08:51 BP 130/78 07/31/23 08:51 BMI result Body Mass Index 36.5 Const Other: Thyroid gland is normal size weighs about 15 g. There are no palpable thyroid nodule Assessment & Plan Assessment & Plan (1) Multinodular thyroid: Code(s): E04.2 - Nontoxic multinodular goiter Category: Medical Plan: This 77-year-old white female with history of toxic multinodular goiter status post multiple biopsies of right and left thyroid nodules with benign cytology. Patient appears clinically biochemically euthyroid on methimazole 10 mg q.d.. Recent thyroid ultrasound shows no significant change in the size of the nodules. Plan is continue the current management. Repeat thyroid ultrasound will be ordered about 2-3 years time. (2) Hyperthyroidism: Code(s): E05.90 - Thyrotoxicosis, unspecified without thyrotoxic crisis or storm Category: Medical Plan: Clinically euthyroid on methimazole 10 mg. Will order thyroid function studies, CBC and liver panel. Adjust methimazole accordingly. Also went over different options of treatment including definitive therapy with surgery or radioactive iodine versus continuation of antithyroid medication Orders: Orders Complete Blood Count Auto Diff Today E04.2 - Nontoxic multinodular goiter Free T4 (Free Thyroxine) Today E04.2 - Nontoxic multinodular goiter Triiodothyronine T3 Free Today E04.2 - Nontoxic multinodular goiter Thyroid Stimulating Hormone Today E04.2 - Nontoxic multinodular goiter Liver Panel Today E04.2 - Nontoxic multinodular goiter Coding Level of Care Code Est Pt Level 3 (75019) Diagnoses Multinodular thyroid E04.2 Hyperthyroidism E05.90
== END 2023-07-31 09:10 | disposition home or self-care (01) ==
PROVIDERS: PCP Internal Medicine; Visit Provider Internal Medicine Endocrinology, Diabetes & Metabolism
DX: E04.2 Nontoxic multinodular goiter (principal); E05.90 Thyrotoxicosis, unspecified without thyrotoxic crisis or storm
CPT/HCPCS: 99213

== ENCOUNTER → 2023-07-31 08:44 | Outpatient (BNVA) | payer MEDICARE, SELFPAY | PROVIDERS: Visit Provider Internal Medicine Endocrinology, Diabetes & Metabolism | DX: E04.2 Nontoxic multinodular goiter (principal); E05.90 Thyrotoxicosis, unspecified without thyrotoxic crisis or storm | CPT/HCPCS: 36415; 80076; 81001; 84439; 84443; 84481; 85025; 85027; 87086; 99212 ==

== ENCOUNTER 2023-07-31 10:12 | Outpatient (REF) | payer MEDICARE, SELFPAY ==
[2023-07-31 11:18] LABS: MANUAL DIFF FLAG NO
[2023-07-31 11:33] LABS: Basophils Absolute Auto 0.1 X10*3/uL (0.0-0.2); Basophils Percent Auto 0.7 % (0-2); Eosinophils Absolute Auto 0.1 X10*3/uL (0.0-0.4); Hematocrit 50.2 % (37.0-47.0); Hemoglobin 17.4 g/dl (12.0-16.0); Imm Gran Abs Auto 0.05 X10*3/uL (0.00-0.03); Imm Gran Pct Auto 0.5 % (0.0-0.4); Lymphocytes Absolute Auto 1.8 X10*3/uL (1.2-4.9); Lymphocytes Percent Auto 17.1 % (20-40); Mean Corpuscular HGB Conc 34.7 g/dl (31.0-35.0); Mean Corpuscular Hemoglobin 32.2 pg (27.0-33.0); Mean Platelet Volume 11.1 fL (9.4-12.3); Monocytes Absolute Auto 1.1 X10*3/uL (0.1-1.2); Monocytes Percent Auto 10.9 % (2-11); Neutrophils Absolute Auto 7.3 x10*3/uL (2.0-8.3); Neutrophils Percent Auto 69.8 % (45-73); Platelet Count 226 X10*3/uL (160-400); Red Cell Distribution Width 13.5 % (11.0-16.0); White Blood Count 10.4 X10*3/uL (4.8-10.8)
[2023-07-31 11:43] LABS: Appearance Urine Cloudy; Color Urine Yellow; Glucose Urine UA Negative (Negative); Leukocyte Esterase Urine Moderate (2+) (Negative); Nitrite Urine Negative (Negative); PH 5.5 (5.0-9.0); UMIC TRIGGER UACC YES; Urine Blood Trace (Negative); Urine Ketones Negative (Negative); Urine Protein Trace mg/dL (Neg-Trace)
[2023-07-31 11:52] LABS: Bacteria Urine 4+ (None Seen); RBC Urine >20 /HPF (0-2); UACC Culture Trigger YES; WBC Urine >50 /HPF (0-5)
[2023-07-31 12:24] LABS: Alanine Aminotransferase 24 U/L (0-31); Albumin Level 4.5 g/dL (3.5-5.0); Alkaline Phosphatase 96 U/L (39-117); Aspartate Amino Transferase 19 U/L (5-31); Bilirubin Direct 0.3 mg/dL (0.0-0.5); Bilirubin Total 0.8 mg/dL (0.0-1.0); Total Protein 7.4 g/dL (6.5-8.0)
[2023-07-31 12:43] LABS: Free T4 (Free Thyroxine) 0.91 ng/dL (0.71-1.85)
== END 2023-07-31 10:13 | disposition home or self-care (01) ==
LOC: HO.WFDLDS 10:12
PROVIDERS: Referring Provider Internal Medicine; Visit Provider Internal Medicine Endocrinology, Diabetes & Metabolism
DX: Z13.89 Encounter for screening for other disorder (principal)
CPT/HCPCS: 36415; 80076; 81001; 84439; 84443; 84481; 85025; 85027; 87086

== ENCOUNTER 2023-10-08 09:37 | Outpatient (AMB) | payer MEDICARE, SELFPAY ==
[2023-10-08 09:38] VITALS: BP 122/64; PULSE 91; O2SAT 95; BMI 36.0
--- NOTE | 2023-10-08 09:38 | A.OFFVIS_ITS ---
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 Patient continues to live independently, driving during the daytime. Reports no memory loss. Able to do all activities of daily living. Occasional urinary incontinence. [facility] Medical History Hyperthyroidism Class 2 severe obesity with body mass index (BMI) of 35 to 39.9 with serious comorbidity Tobacco use disorder Microscopic hematuria Vitamin D deficiency Multinodular thyroid Essential (primary) hypertension Cataract (lens) fragments in eye following cataract surgery, left eye Surgical History History of colonoscopy Hx of cataract extraction History of tonsillectomy Family History Father Angina at rest Melanoma Cardiac disease Leukemia Mother Hypertension Macular degeneration Maternal Grandfather Substance abuse Social History Housing: Apartment Alcohol intake: current Alcohol intake frequency: holidays/special occasions only Patient Tobacco Use Status: Current everyday Tobacco user Tobacco use type: Cigarette Cigarette Packs Per Day: 0.5 Cigarettes Per Day: 8 e-Cigarette/Vaping Use: Never Used Second Hand Smoke Exposure: Yes service: No Current occupational status: retired Cognitive needs: No Hearing needs: Yes (hearing aides) Vision needs: Yes (Glasses) Questionnaire Medicare Wellness Checkup [age] What gender do you identify with?: female During the past 4 weeks, how much have you been bothered by emotional problems such as feeling anxious, depressed, irritable, sad or downhearted, and blue?: not at all During the past 4 weeks, has your physical & emotional health limited your social activities with family, friends, neighbors, or groups?: not at all During the past 4 weeks, how much bodily pain have you generally had?: very mild pain During the past 4 weeks, was someone available to help you if you needed & wanted help?: yes, as much as I wanted During the past 4 weeks, what was the hardest physical activity you could do for at least 2 minutes?: moderate Can you get to places out of walking distance without help? (For eg., can you travel alone on buses, taxis or drive your car?): Yes Can you go shopping for groceries or clothes without someone's help?: Yes Can you prepare your own meals?: Yes Can you do your housework without help?: Yes Because of any health problems, do you need the help of another person with your personal care needs such as eating, bathing, dressing or getting around the house?: No Can you handle your own money without help?: Yes During the past 4 weeks, how would you rate your health in general?: good During the past 4 weeks how have things been going for you?: pretty well Are you having difficulties driving your car?: no Do you always fasten your seat belt when you are in a car?: yes, usually During past 4 weeks, have you been bothered by the following: never: Sexual problems?, Trouble eating well? and Problems using the telephone?, seldom: Falling or dizzy when standing up and sometimes: Teeth or denture problems? and Tiredness or fatigue? Have you fallen 2 or more times in the past year?: No Are you a smoker?: yes, but I'm not ready to quit During the past 4 weeks, how many drinks of wine, beer, or other alcoholic beverages did you have?: no alcohol at all Do you exercise for about 20 minutes 3 or more times a week?: no, I usually do not exercise this much Have you been given information to help with the following?: yes: Hazards in your house that might hurt you? and yes: Keeping track of your medications? How often do you have trouble taking medicines the way you have been told to take them?: I always take medicine as prescribed How confident are you that you can control & manage most of your health problems?: very confident What is your race?: White Mini Mental State Exam (MMSE) Attention & Calculation (CHOOSE ONE) Ask pt to begin with 100 & count backward by 7. Stop after 5 repeats. If pt cannot ask them to spell the word WORLD backward.: 93, 86, 79 and 72 Score Score: 4 Activity of Daily Living Bathing - sponge bath, tub bath or shower: receives no assistance (gets in/out by self, if usual bathing means Dressing - getting clothes from closets & drawers, including inner/outer garments & fasteners.: gets clothes & gets completely dressed without help Transfer: moves in & out of bed and chair without help (may use support object) Continence: controls urination/bowel movements completely by self Feeding: feeds self without help Total Score: 0 Information obtained from: patient Using telephone: independent Traveling: independent Shopping: independent Preparing meals: independent Housework: independent Taking medicine: independent Managing money: independent PHQ-9 Over the last 2 weeks, how often have you been bothered by any of the following problems? 1. Little interest or pleasure in doing things: not at all 2. Feeling down, depressed, or hopeless: several days 3. Trouble falling or staying asleep, or sleeping too much: more than half the days 4. Feeling tired or having little energy: not at all 5. Poor appetite or overeating: not at all 6. Feeling bad about yourself - or that you are a failure or have let yourself or your family down: not at all 7. Trouble concentrating on things, such as reading the newspaper or watching television: not at all 8. Moving or speaking so slowly that other people could have noticed. Or the opposite - being so fidgety or restless that you have been moving around a lot more than usual: not at all 9. Thoughts that you would be better off or of hurting yourself in some way: not at all Total score: 3 Depression Screening Interpretation: Negative Depression Screening Done: Yes Source: Developed by Drs. Geronimo Davis, Tosha Madrid, Marlo Oneill and colleagues, with an educational ruiz from [employer]. Physical Exam Vital Signs: Last Vital Signs Pulse 91 10/08/23 09:38 BP 122/64 10/08/23 09:38 Pulse Ox 95 10/08/23 09:38 Oxygen Delivery Method Room Air 10/08/23 09:38 BMI result Body Mass Index 36.0 Balance: Normal Romberg: Negative Tandem Walk: Able to Walk and Turn: Able to Rise from sit to stand: Able to Hearing Whisper test: Pass Const General: cooperative and healthy appearing Nutritional Appearance: well nourished Orientation/consciousness: patient oriented x3 Limitations: no limitations HEENT Head: Yes normal to inspection Eyes General: appearance normal, both eyes and all related structures Neck Neck: Yes normal visual inspection Chest Chest palpation & inspection: normal palpation of entire chest wall Resp Effort & Inspection: normal respiratory effort Neuro General: patient oriented x3 Assessment & Plan Assessment & Plan (1) Annual physical exam: Code(s): Z00.00 - Encounter for general adult medical examination without abnormal findings Plan: Blood work reviewed. (2) Polycythemia: Code(s): D75.1 - Secondary polycythemia Plan: Patient sees a heel pricker. (3) Hyperthyroidism: Code(s): E05.90 - Thyrotoxicosis, unspecified without thyrotoxic crisis or storm Plan: Blood work reviewed. 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 (4) Class 2 severe obesity with body mass index (BMI) of 35 to 39.9 with serious comorbidity: Code(s): E66.01 - Morbid (severe) obesity due to excess calories Plan: Counseling on the importance of diet and exercise done. (5) Tobacco use disorder: Code(s): F17.200 - Nicotine dependence, unspecified, uncomplicated Plan: Patient was advised to quit smoking. (6) Essential (primary) hypertension: Code(s): I10 - Essential (primary) hypertension Plan: Blood pressure is in range. Continue medications at same dosage. Quality Reporting (2019) Depression/Bipolar (159/160/161/177) PHQ-9: Total score: 3 Coding Level of Care Code Medicare Subsequent (G0439) Diagnoses Annual physical exam Z00.00 Polycythemia D75.1 Hyperthyroidism E05.90 Class 2 severe obesity with body mass index (BMI) of 35 to 39.9 with serious comorbidity E66.01 Tobacco use disorder F17.200 Essential (primary) hypertension I10 Advance Care Planning Advance Care Planning discussion: Exists, not on file Date of discussion: 10/08/23 Who was present: Patient Forms completed: Health Care Proxy and [facility] Actual minutes spent: 5
== END 2023-10-08 10:21 | disposition home or self-care (01) ==
PROVIDERS: PCP Internal Medicine; Visit Provider Internal Medicine
DX: Z00.00 Encounter for general adult medical examination without abnormal findings (principal); D75.1 Secondary polycythemia; E05.90 Thyrotoxicosis, unspecified without thyrotoxic crisis or storm; F17.210 Nicotine dependence, cigarettes, uncomplicated; I10 Essential (primary) hypertension
CPT/HCPCS: G0439

== ENCOUNTER 2023-10-31 12:06 | Outpatient (AMB) | payer MEDICARE, SELFPAY ==
--- NOTE | 2023-10-31 12:15 | MHC.OFFWIV ---
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- amlodipine 10 mg PO DAILY aspirin 81 mg PO DAILY calcium carbonate 500 mg PO BID cholecalciferol (vitamin D3) 50 mcg PO DAILY lisinopril 40 mg (2 x 20 mg) PO DAILY methimazole 10 mg (2 x 5 mg) PO DAILY 30 days multivitamin 1 tab PO DAILY vitamin A-vitamin C-vit E-min 1 tab PO DAILY Do you need a note to return to daycare/school/sports/work: No HPI HPI Comments History of Present Illness Details Here today w/ c/o cough related to COVID Started with covid sx on 10/22/23: runny nose, cough, low grade temp, diarrhea tested + 10/24/23 Prescribed paxlovid however did not get the RX until after 5 days so did not take. Since onset, all sx have improved, except the cough and thats what brings her in today Cough is productive at times, she is a current active smoker, cont to smoke even during illness At time feels SOB Denies asthma or COPD. Denies chest pain. Using OTC cough suppressant and expectorant and APAP to help. The OTC med does help some. Exam Awake alert NAD Sclera and conjunctiva clear bilat Nares patent, turbinates within normal limits, no sinus tenderness with palpation bilat TM intact and clear bilat MMM, pharynx WNL RRR LS CTAB Plan: Lung sound clear today. She presents quite well. I will prescribe her albuterol 2 puffs every 4 hours as needed. Encouraged to use liberally over the next few days. Okay to continue to use [id number] cough suppressants and expectorants as these seem to be helping. As this is a long holiday weekend, I have prescribed her prednisone 20 mg. Advised her to use this only if she develops any wheezing or worsening shortness of breath. Advised that if her symptoms do not improve, or getting worse that she will need a re-evaluation encouraged to seek care. Smoking cessation This note is constructed using voice recognition software. While every effort has been made to ensure accuracy in microsoft developer, still errors may have been included Sometimes, these errors may affect the content or meaning of the given sentence . [facility] Medical History Hyperthyroidism Class 2 severe obesity with body mass index (BMI) of 35 to 39.9 with serious comorbidity Tobacco use disorder Microscopic hematuria Vitamin D deficiency Multinodular thyroid Essential (primary) hypertension Cataract (lens) fragments in eye following cataract surgery, left eye Surgical History History of colonoscopy Hx of cataract extraction History of tonsillectomy Family History Father Angina at rest Melanoma Cardiac disease Leukemia Mother Hypertension Macular degeneration Maternal Grandfather Substance abuse Social History Housing: Apartment Alcohol intake: current Alcohol intake frequency: holidays/special occasions only Patient Tobacco Use Status: Current everyday Tobacco user Tobacco use type: Cigarette Cigarette Packs Per Day: 0.5 Cigarettes Per Day: 8 e-Cigarette/Vaping Use: Never Used Second Hand Smoke Exposure: Yes service: No Current occupational status: retired Cognitive needs: No Hearing needs: Yes (hearing aides) Vision needs: Yes (Glasses) Physical Exam Vital Signs: Last Vital Signs Pulse 82 10/31/23 12:17 Resp 12 10/31/23 12:17 BP 122/60 10/31/23 12:17 Pulse Ox 96 10/31/23 12:17 Oxygen Delivery Method Room Air 10/31/23 12:17 BMI result Body Mass Index 34.9 Assessment & Plan Assessment & Plan (1) COVID-19: Code(s): U07.1 - COVID-19 Plan: . (2) Tobacco use disorder: Code(s): F17.200 - Nicotine dependence, unspecified, uncomplicated Plan: . (3) Cough: Code(s): R05.9 - Cough, unspecified Qualifiers: Cough type: subacute Qualified Code(s): R05.2 - Subacute cough Plan . Medications: New albuterol sulfate 90 mcg/actuation 2 puffs inhalation Q4-6H 30 days PRN 8.5 grams 0RF shortness of breath or wheezing prednisone 20 mg PO DAILY 5 tabs 0RF Coding Level of Care Code Est Pt Level 3 (38158) Diagnoses COVID-19 U07.1 Tobacco use disorder F17.200 Subacute cough R05.2 Cough type: subacute
[2023-10-31 12:17] VITALS: BP 122/60; PULSE 82; RESP 12; O2SAT 96; BMI 34.9
== END 2023-10-31 12:52 | disposition home or self-care (01) ==
PROVIDERS: PCP Internal Medicine; Visit Provider Nurse Practitioner Family
DX: U07.1 COVID-19 (principal); F17.200 Nicotine dependence, unspecified, uncomplicated; R05.2 Subacute cough
CPT/HCPCS: 99213

== ENCOUNTER 2024-01-13 14:00 | Outpatient (REF) | payer MEDICARE, SELFPAY ==
--- NOTE | ~2024-01-13 | MM_ITS ---
EXAMINATION: MM SCREENING DIGITAL BREAST TOMOSYNTHESIS, BILATERAL CLINICAL INFORMATION: Screening. Asymptomatic. COMPARISON: Mammography: Comparison is made with available priors TECHNIQUE: Digital breast mammography with tomosynthesis is performed in both the craniocaudal and mediolateral oblique views along with computer-aided detection (CAD). FINDINGS: There are scattered areas of fibroglandular density (ACR BI-RADS breast composition Category b). There are no significant masses, abnormal calcifications, or other abnormalities. MM/MM tomosynthesis screening BI IMPRESSION: No mammographic evidence of malignancy. ASSESSMENT: BI-RADS BI-RADS 1 - Negative RECOMMENDATION: Routine annual mammography screening. 1 year F/U This examination should not preclude the clinical evaluation of a suspicious palpable abnormality. This patient's information was entered into a reminder system with a target due date for their next mammogram. Electronically signed by: Tamie Pineda DO 01/21/2024 03:58 PM ANEL
== END 2024-01-13 14:01 | disposition home or self-care (01) ==
LOC: HO.MAMMO 14:00
PROVIDERS: PCP Internal Medicine; Visit Provider Internal Medicine
DX: Z12.31 Encounter for screening mammogram for malignant neoplasm of breast (principal)
CPT/HCPCS: 77063; 77067

== ENCOUNTER → 2024-01-13 14:30 | Outpatient (BNV) | payer MEDICARE, SELFPAY | PROVIDERS: PCP Internal Medicine; Visit Provider Internal Medicine | DX: Z12.31 Encounter for screening mammogram for malignant neoplasm of breast (principal) | CPT/HCPCS: 77063; 77067 ==

== ENCOUNTER 2024-01-28 10:55 | Outpatient (REF) | payer MEDICARE, SELFPAY ==
[2024-01-28 14:30] LABS: Appearance Urine Clear; Color Urine Yellow; Glucose Urine UA Negative (Negative); Leukocyte Esterase Urine Moderate (2+) (Negative); Nitrite Urine Negative (Negative); PH 5.5 (5.0-9.0); Specific Gravity - Urine 1.015 (1.005-1.025); UMIC TRIGGER UACC YES; Urine Blood Small (1+) (Negative); Urine Ketones Negative (Negative); Urine Protein Trace mg/dL (Neg-Trace)
[2024-01-28 14:55] LABS: Thyroid Stimulating Hormone 4.35 uIU/mL (0.32-4.0)
[2024-01-28 16:48] LABS: Bacteria Urine None Seen (None Seen); Calcium Oxalate Crystals Urine Present; Hyaline Casts Urine 0-2 /LPF (0-2); UACC Culture Trigger YES; WBC Urine 21-50 /HPF (0-5)
[2024-01-29 06:58] LABS: Triiodothyronine T3 Free 3.1 pg/mL (2.3-4.2)
== END 2024-01-28 10:56 | disposition home or self-care (01) ==
LOC: HO.WFDLDS 10:55
PROVIDERS: Referring Provider Internal Medicine Endocrinology, Diabetes & Metabolism; Visit Provider Internal Medicine
DX: I10 Essential (primary) hypertension (principal); E05.90 Thyrotoxicosis, unspecified without thyrotoxic crisis or storm; D75.1 Secondary polycythemia; R39.9 Unspecified symptoms and signs involving the genitourinary system
CPT/HCPCS: 36415; 81001; 84443; 84481; 87086

== ENCOUNTER 2024-02-04 10:01 | Outpatient (AMB) | payer MEDICARE, SELFPAY ==
--- NOTE | 2024-02-04 10:07 | MHC.OFFVIS ---
Vital Signs 02/04/24 10:11 Height 5 ft 6 in Weight 215 lb 6.266 oz BMI 34.8 BP 110/58 L Blood Pressure Location Rt brachial Position Sitting Pulse 96 Pulse Source Pulse Oximeter Intake Visit Reasons: f/u toxic MNG Intake Note: Patient present today for toxic MNG follow up visit Legislative Director Required: No Accompanied by: Self / Same As Patient Allergies No Known Allergies [No Known Allergies*] Allergy (Verified 02/04/24 10:11) Medication List - Last Reconciled 02/04/24 by Geronimo Artis MD albuterol sulfate 90 mcg/actuation 2 puffs inhalation Q4-6H PRN 30 days amlodipine 10 mg PO DAILY aspirin 81 mg PO DAILY calcium carbonate 500 mg PO BID cholecalciferol (vitamin D3) 50 mcg PO DAILY lisinopril 40 mg (2 x 20 mg) PO DAILY methimazole 5 mg PO DAILY 30 days multivitamin 1 tab PO DAILY prednisone 20 mg PO DAILY vitamin A-vitamin C-vit E-min 1 tab PO DAILY HPI Comments Details: 77 YO F who is seen in F/U for a Multinodular Goiter. 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 She underwent FNA biopsy 03/19/2018 of her LLP 3.2 cm nodule with benign cytology, and also of the RLP 4.7 cm nodule which had benign cytology. Repeat thyroid US revealed growth of her LUP nodule. She underwent FNA biopsy of her LUP 1.2 cm thyroid nodule 07/27/2020 with benign cytology. Currently denies any dysphagia or hoarseness of voice. Denies sensation of swelling in the neck or difficulty breathing while lying flat. Denies any tenderness in the neck. Denies any symptoms of hyper or hypothyroidism. Denies any history of head or neck irradiation. Denies any family history of thyroid cancer. Had biopsy of nodules in the past. Thyroid US: 09/19/2021 SIZE: Measurements of the thyroid lobes and nodules are given in sagittal, anteroposterior and transverse dimensions respectively. Right Thyroid Lobe: 7.1 x 4.6 x 5.5 cm, volume 93.4 mL. Previously 8.2 x 4.2 x 3.8 cm, volume 68.6 mL. Parenchyma: The gland echotexture is heterogeneous. Thyroid vascularity is normal. Left Thyroid Lobe: 8.0 x 4.3 x 2.1 cm, volume 38.9 mL. Previously 6.2 x 3.0 x 1.7 cm, volume 16.4 mL. Parenchyma: The gland echotexture is heterogeneous. Thyroid vascularity is normal. Isthmus: 1.0 cm in maximum AP dimension. Previously 0.8 cm. Estimated total number of nodules greater than or equal to 1 cm: 3. Finish Sander nodules are described as follows: 1.? Location: Right mid/inferior. ?? ? Size: 5.5 x 4.4 x 3.9 cm, volume 49.3 mL. ?? ? Previously: 5.2 x 4.1 x 3.7 cm, volume 41.9 mL. ?? ? Nodule characteristics: ?? ? Composition: Mixed cystic and solid (1). ?? ? Echogenicity: Hyperechoic (1). ?? ? Shape: Taller than wide (3). ?? ? Margins: Smooth (0). ?? ? Echogenic Foci: Macrocalcifications (1). Punctate echogenic foci (3). ? ACR TI-RADS total points: 9 Previous: 6 ?? ? ACR TI-RADS category: 5 Previous: 4 ? Significant change in size (>/= 20% in 2 dimensions and minimal increase of 2 mm or 50% or greater increase in volume): Mild increase in volume ?? ? Change in features: None ?? ? Change in ACR TI-RADS risk category: Increased 2.? Location: Left superior. ?? ? Size: 0.8 x 0.6 x 0.8 cm, volume 0.2 mL. ?? ? Previously: 1.2 x 1.0 x 1.0 cm, volume 0.6 mL. ?? ? Nodule characteristics: ?? ? Composition: Solid (2). ?? ? Echogenicity: Hyperechoic (1). ?? ? Shape: Not taller than wide (0). ?? ? Margins: Ill-defined (0). ?? ? Echogenic Foci: None (0). ? ACR TI-RADS total points: 3 Previous: 0 ?? ? ACR TI-RADS category: 3 Previous: 1 ? Significant change in size (>/= 20% in 2 dimensions and minimal increase of 2 mm or 50% or greater increase in volume): Minimally smaller ?? ? Change in features: None ?? ? Change in ACR TI-RADS risk category: Minimal increase in TI-RADS. 3.? Location: Right mid/inferior. ?? ? Size: 3.2 x 2.3 x 1.9 cm, volume 7.0 mL. ?? ? Previously: 2.9 x 3.1 x 2.0 cm, volume 9.5 mL. ?? ? Nodule characteristics: ?? ? Composition: Solid (2). ?? ? Echogenicity: Hyperechoic (1). ?? ? Shape: Taller than wide (3). ?? ? Margins: Smooth (0). ?? ? Echogenic Foci: None (0).? ACR TI-RADS total points: 6 Previous: 4 ?? ? ACR TI-RADS category: 4 Previous: 4 ? Significant change in size (>/= 20% in 2 dimensions and minimal increase of 2 mm or 50% or greater increase in volume): ?? ? Change in features: None ?? ? Change in ACR TI-RADS risk category: Minimal change NODES: No lymphadenopathy is seen in the tissue surrounding the thyroid gland. Labs: Laboratory Tests 04/28/20 Unknown TSH 1.07 Free T4 1.02 On 10 mg of MMI. No sx of hypo or hyperthyroidism. No obstructive sx . Recent lab work showed increase in TSH PFSH Medical History Hyperthyroidism Class 2 severe obesity with body mass index (BMI) of 35 to 39.9 with serious comorbidity Tobacco use disorder Microscopic hematuria Vitamin D deficiency Multinodular thyroid Essential (primary) hypertension Cataract (lens) fragments in eye following cataract surgery, left eye Surgical History History of colonoscopy Hx of cataract extraction History of tonsillectomy Family History Father Angina at rest Melanoma Cardiac disease Leukemia Mother Hypertension Macular degeneration Maternal Grandfather Substance abuse Social History Housing: Apartment Alcohol intake: current Alcohol intake frequency: holidays/special occasions only Patient Tobacco Use Status: Current everyday Tobacco user Tobacco use type: Cigarette Cigarette Packs Per Day: 0.5 Cigarettes Per Day: 8 e-Cigarette/Vaping Use: Never Used Second Hand Smoke Exposure: Yes service: No Current occupational status: retired Cognitive needs: No Hearing needs: Yes (hearing aides) Vision needs: Yes (Glasses) Physical Exam Vital Signs: BMI result Body Mass Index 34.8 Const Other: Thyroid gland is normal size weighs about 15 g. There are no palpable thyroid nodule Assessment & Plan Assessment & Plan (1) Multinodular thyroid: Code(s): E04.2 - Nontoxic multinodular goiter Category: Medical Plan: This 78-year-old white female with history of toxic multinodular goiter status post multiple biopsies of right and left thyroid nodules with benign cytology. Patient appears clinically biochemically euthyroid on methimazole 10 mg q.d.. Recent thyroid ultrasound shows no significant change in the size of the nodules. Plan is continue the current management. Repeat thyroid ultrasound will be ordered about 2 years time. (2) Hyperthyroidism: Code(s): E05.90 - Thyrotoxicosis, unspecified without thyrotoxic crisis or storm Category: Medical Plan: Clinically euthyroid on methimazole 10 mg but with elevated TSH. Will decrease methimazole to 5 mg q.d. and recheck thyroid function studies along with TRAB antibodies in 4 wks. Also went over different options of treatment including definitive therapy with surgery or radioactive iodine versus continuation of antithyroid medication Orders: Orders Free T4 (Free Thyroxine) 4 Weeks E05.90 - Thyrotoxicosis, unspecified without thyrotoxic crisis or storm Thyroid Stimulating Hormone 4 Weeks E05.90 - Thyrotoxicosis, unspecified without thyrotoxic crisis or storm Triiodothyronine T3 Free 4 Weeks E05.90 - Thyrotoxicosis, unspecified without thyrotoxic crisis or storm Thyrotropin Receptor Antibody 4 Weeks E05.90 - Thyrotoxicosis, unspecified without thyrotoxic crisis or storm Medications: Changed From methimazole 10 mg (2 x 5 mg) PO DAILY 60 tabs 3RF 30 days To methimazole 5 mg PO DAILY 30 tabs 3RF 30 days Coding Level of Care Code Est Pt Level 3 (77543) Diagnoses Multinodular thyroid E04.2 Hyperthyroidism E05.90
[2024-02-04 10:11] VITALS: BP 110/58; PULSE 96; BMI 34.8
== END 2024-02-04 10:22 | disposition home or self-care (01) ==
PROVIDERS: PCP Internal Medicine; Visit Provider Internal Medicine Endocrinology, Diabetes & Metabolism
DX: E04.2 Nontoxic multinodular goiter (principal); E05.90 Thyrotoxicosis, unspecified without thyrotoxic crisis or storm
CPT/HCPCS: 99213

== ENCOUNTER → 2024-02-04 10:01 | Outpatient (BNVA) | payer MEDICARE, SELFPAY | PROVIDERS: PCP Internal Medicine; Visit Provider Internal Medicine Endocrinology, Diabetes & Metabolism | DX: E04.2 Nontoxic multinodular goiter (principal); E05.90 Thyrotoxicosis, unspecified without thyrotoxic crisis or storm | CPT/HCPCS: 99212 ==

== ENCOUNTER 2024-03-02 10:22 | Outpatient (REF) | payer MEDICARE, SELFPAY ==
[2024-03-02 15:45] LABS: Free T4 (Free Thyroxine) 1.06 ng/dL (0.71-1.85); Thyroid Stimulating Hormone 2.24 uIU/mL (0.32-4.0)
[2024-03-03 05:43] LABS: Triiodothyronine T3 Free 3.2 pg/mL (2.3-4.2)
[2024-03-05 21:44] LABS: Thyrotropin Receptor Antibody 3.63 IU/L (<=2.00)
== END 2024-03-02 10:23 | disposition home or self-care (01) ==
LOC: HO.WFDLDS 10:22
PROVIDERS: Visit Provider Internal Medicine Endocrinology, Diabetes & Metabolism
DX: E05.90 Thyrotoxicosis, unspecified without thyrotoxic crisis or storm (principal)
CPT/HCPCS: 36415; 83520; 84439; 84443; 84481

== ENCOUNTER 2024-04-29 10:51 | Outpatient (AMB) | payer MEDICARE, SELFPAY ==
--- NOTE | 2024-04-29 11:47 | MHC.PC.OV ---
Vital Signs 04/29/24 11:49 Height 5 ft 6 in Weight 211 lb BMI 34.1 BP 130/70 Blood Pressure Location Lt brachial Position Sitting Pulse 95 Pulse Source Pulse Oximeter Temp 97.3 F Temp Source Temporal Artery Scan Pulse Oximetry (%) 95 Oxygen Delivery Method Room Air Intake Visit Reasons: 6 month follow up Intake Note: Patient is here to follow up on Hyperthyroidism, HTN. 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 Accompanied by: Self / Same As Patient Allergies No Known Allergies [No Known Allergies*] Allergy (Verified 04/29/24 12:10) Medication List - Last Reconciled 04/29/24 by Racheal Matamoros PA-C amlodipine 10 mg PO DAILY aspirin 81 mg PO DAILY calcium carbonate 500 mg PO BID cholecalciferol (vitamin D3) 50 mcg PO DAILY lisinopril 40 mg (2 x 20 mg) PO DAILY methimazole 5 mg PO DAILY multivitamin 1 tab PO DAILY vitamin A-vitamin C-vit E-min 1 tab PO DAILY Tobacco use date assessed: 04/29/24 Fall risk assessment: No Falls in past year Last assessed Fall Risk: 04/29/24 Dental Screening Dental Screen Date: 04/29/24 Did you have a dental visit in the last 12 months?: No Did you have a dental problem in the last 6 months where you did not have access to dental care?: No Was dental information given to patient?: No [facility] Medical History Hyperthyroidism Class 2 severe obesity with body mass index (BMI) of 35 to 39.9 with serious comorbidity Tobacco use disorder Microscopic hematuria Vitamin D deficiency Multinodular thyroid Essential (primary) hypertension Cataract (lens) fragments in eye following cataract surgery, left eye Surgical History History of colonoscopy Hx of cataract extraction History of tonsillectomy Family History Father Angina at rest Melanoma Cardiac disease Leukemia Mother Hypertension Macular degeneration Maternal Grandfather Substance abuse Social History Housing: Apartment Alcohol intake: current Alcohol intake frequency: holidays/special occasions only Patient Tobacco Use Status: Current everyday Tobacco user Tobacco use type: Cigarette Cigarette Packs Per Day: 0.5 Cigarettes Per Day: 10 e-Cigarette/Vaping Use: Never Used Second Hand Smoke Exposure: Yes service: No Current occupational status: retired Cognitive needs: No Hearing needs: Yes (hearing aides) Vision needs: Yes (Glasses) Questionnaire PHQ-9 Over the last 2 weeks, how often have you been bothered by any of the following problems? 1. Little interest or pleasure in doing things: not at all 2. Feeling down, depressed, or hopeless: not at all 3. Trouble falling or staying asleep, or sleeping too much: not at all 4. Feeling tired or having little energy: not at all 5. Poor appetite or overeating: not at all 6. Feeling bad about yourself - or that you are a failure or have let yourself or your family down: not at all 7. Trouble concentrating on things, such as reading the newspaper or watching television: not at all 8. Moving or speaking so slowly that other people could have noticed. Or the opposite - being so fidgety or restless that you have been moving around a lot more than usual: not at all 9. Thoughts that you would be better off or of hurting yourself in some way: not at all Total score: 0 Depression Screening Interpretation: Negative Depression Screening Done: Yes 60852 - PHQ-9 Billing: Yes Source: Developed by Drs. Geronimo Davis, Tosha Madrid, Marlo Oneill and colleagues, with an educational ruiz from [employer]. Thrive Questionnaire Date Thrive assessed: 04/29/24 I am a: Patient What is your living situation today?: I have a steady place to live Within the past 12 months, did the food you bought not last and you didn't have the money to get more?: Never true Within the past 12 months, did you worry whether your food would run out before you got money to buy more?: Never true Do you have trouble paying for medicines?: No Do you have trouble getting transportation to medical appointments?: No Do you have trouble paying your heating and electricity bill?: No Do you have trouble taking care of your child, family member or friend?: No Do you have trouble with day-to-day activities such as bathing, preparing meals, shopping, managing finances, etc.?: No Are you currently unemployed and looking for a job?: No Are you interested in more education?: No Please select the resources that you would like help with: None Currently or been in a relationship where the following occur: No concerns reported THRIVE Score: 0 AUDIT C Alcohol Use Questionnaire (AUDIT-C) 1. How often do you have a drink containing alcohol?: Never Total Score: 0 Score Reviewed/Action Taken: Yes ODILON-7 AMB Questionnaire ODILON-7 Date ODILON - 7 assessed: 04/29/24 Feeling nervous, anxious, or on edge: 0 = Not at all Not being able to stop or control worryin = Not at all Worrying too much about different things: 0 = Not at all Trouble relaxin = Not at all Being so restless that it is hard to sit still: 0 = Not at all Becoming easily annoyed or irritable: 0 = Not at all Feeling afraid as if something awful might happen: 0 = Not at all Total ODILON-7 score (0-4 normal; 5-9 mild; 10-14 moderate; 15-21 severe): 0 Source: Developed by Drs. Geronimo Davis, Tosha Madrid, Marlo Oneill and colleagues, with an educational ruiz from [employer]. ODILON-7 Assessment Billing ODILON-7 Assessment Tool: ODILON-7 Assessment 40834 Physical exam (Primary Care) Vital Signs: Last Vital Signs Temp 97.3 F 04/29/24 11:49 Pulse 95 04/29/24 11:49 BP 130/70 04/29/24 11:49 Pulse Ox 95 04/29/24 11:49 Oxygen Delivery Method Room Air 04/29/24 11:49 Care Plan Goal for BP management: <130/80 at goal BMI result Body Mass Index 34.1 BMI Assessment/Plan discussion: High BMI High, discussed plan: lifestyle, weight reduction, dietary, physical activity and alcohol moderation Tobacco/Smoking Status: Tobacco use Status Tobacco use date assessed 04/29/24 04/29/24 11:54 Patient Tobacco Use Status Current everyday Tobacco 04/29/24 11:54 Tobacco use type Cigarette 04/29/24 11:54 e-Cigarette/Vaping Use Never Used 04/29/24 11:54 PHQ-9: PHQ-9 Score PHQ-9: Total score 0 04/29/24 12:13 Depression Screening Interpretation: Negative Thrive Assessment: Date of Thrive Assessment Date Thrive assessed 04/29/24 04/29/24 11:54 Currently or been in a relationship where the following occur: No concerns reported Coding Level of Care Code Est Pt Level 4 (45299) Complex EM visit Add On G2211 Diagnoses Hyperthyroidism E05.90 Class 2 severe obesity with body mass index (BMI) of 35 to 39.9 with serious comorbidity E66.01 Vitamin D deficiency E55.9 Multinodular thyroid E04.2 Essential (primary) hypertension I10 Polycythemia D75.1 Additional Codes PHQ-9 - 70965 - PHQ-9 Billing: Yes ([id number]) ODILON-7 Assessment Billing - ODILON-7 Assessment Tool: ODILON-7 Assessment 81404 ([id number]) Assessment & Plan Assessment & Plan (1) Hyperthyroidism: Code(s): E05.90 - Thyrotoxicosis, unspecified without thyrotoxic crisis or storm Category: Medical Plan: Patient currently on methimazole 5 mg daily. Last TSH level was 02/20/2024 with free T4 within normal limits. Patient being followed by endocrinology. Condition is chronic and stable continue to monitor. (2) Class 2 severe obesity with body mass index (BMI) of 35 to 39.9 with serious comorbidity: Code(s): E66.01 - Morbid (severe) obesity due to excess calories Category: Medical Plan: Patient to improve her diet and exercise regimen. Condition is chronic and stable continue to monitor. (3) Vitamin D deficiency: Code(s): E55.9 - Vitamin D deficiency, unspecified Category: Medical Plan: Patient currently on vitamin-D 50 mcg daily. Condition is chronic and stable continue to monitor. (4) Multinodular thyroid: Code(s): E04.2 - Nontoxic multinodular goiter Category: Medical Plan: Patient currently on methimazole 5 mg daily. Last TSH level was 02/20/2024 with free T4 within normal limits. Patient being followed by endocrinology. Condition is chronic and stable continue to monitor. (5) Essential (primary) hypertension: Code(s): I10 - Essential (primary) hypertension Category: Medical Plan: Goal <130/80 at Goal today. Patient to continue amlodipine 10 mg daily, lisinopril 40 mg daily. Condition is chronic and stable will continue to monitor. (6) Polycythemia: Code(s): D75.1 - Secondary polycythemia Category: Medical Plan: H&H 16.9/48.2. These labs were performed on 11/27/2023. Patient being followed by Hematology with Dr. Villagran. Condition is chronic and stable continue to monitor. Plan Plan Management involves maintenance of current regimens for hypertension and thyroid disease. Calcium and vitamin D supplements will assist with osteopenia. Routine blood work will be performed to assess overall health status and thyroid function. Cataract surgery is anticipated for the right eye in the summer months. Continual monitoring for any developments in urinary incontinence is suggested, but currently managed with OTC products. Orders: Orders Complete Blood Count Auto Diff Today Z00.00 - Encounter for general adult medical examination without abnormal findings Comprehensive [place]. Panel Fast Today Z00.00 - Encounter for general adult medical examination without abnormal findings C Reactive Protein Today Z00.00 - Encounter for general adult medical examination without abnormal findings Hemoglobin A1c Today Z00.00 - Encounter for general adult medical examination without abnormal findings Lipid Panel Today Z00.00 - Encounter for general adult medical examination without abnormal findings Liver Panel Today Z00.00 - Encounter for general adult medical examination without abnormal findings Vitamin B1 Today Z00.00 - Encounter for general adult medical examination without abnormal findings Vitamin B12 and Folate Today Z00.00 - Encounter for general adult medical examination without abnormal findings Vitamin D 25-OH Total Today Z00.00 - Encounter for general adult medical examination without abnormal findings Phosphorus Today Z00.00 - Encounter for general adult medical examination without abnormal findings Magnesium Today Z00.00 - Encounter for general adult medical examination without abnormal findings TSH reflex Free T4 Today Z00.00 - Encounter for general adult medical examination without abnormal findings Medications: Refilled amlodipine 10 mg PO DAILY 90 tabs 1RF Patient Instructions: Patient Instructions - Continue with current medication regimen. - Schedule comprehensive blood work towards the end of May. - Use OTC absorbent products for incontinence as needed. - Plan for cataract surgery in the summer. - Maintain regular follow-up visits in six months unless issues arise. - Avoid driving at night as safe driving practices. Scribe Plan - Not visible on output: History of Present Illness The patient is a 79-year-old female presenting for a six-month follow-up for the routine management of chronic conditions, specifically essential hypertension, hypothyroidism, and osteopenia. Her hypertension is managed with Amlodipine 10 mg and Lisinopril 40 mg. She also takes aspirin, calcium carbonate, vitamin D, and methimazole as part of her management plan. The patient previously had prednisone prescribed for COVID-19, but it is no longer used. She manages osteopenia with supplements. Social History - Lives alone. - Capable of independent living activities such as cooking and cleaning. - Prioritizes safety while driving, preferring to avoid night driving. - Uses OTC absorbent products to manage urinary incontinence. Review of Systems - Genitourinary: Reports episodes of urinary incontinence, attributed to age. - Ophthalmologic: Reports presence of right eye cataract. Physical Exam Appearance: Alert. Oriented X3. No acute distress. Head: Normal external exam. Normocephalic. Atraumatic. Eyes: Pupils are equal, round, and reactive to light. Extraocular movements intact. Conjunctiva and sclera normal. Eyelids normal. Cataract noted on the right eye, scheduled for surgery this summer. Ears: External auditory canal normal. Tympanic membranes normal. Hearing aids present. Minimal wax noted. Throat: Pharynx normal. Uvula midline. Moist mucous membranes. Neck: Normal inspection. Neck supple. Full range of motion. No adenopathy. Thyroid Normal. No meningeal signs. No neck mass noted. Cardiovascular: Normal heart rate and rhythm. Heart sound normal. No murmurs noted. Pulses normal throughout. Respiratory: No respiratory distress. Painless inspiration. Breath sounds normal. No wheezes/rales/rhonchi noted. Chest nontender. No accessory muscle usage noted or decreased air movement noted. Abdomen: Soft and nontender. Bowel sounds normal in all 4 quadrants. No distention noted. No organomegaly noted. No visible injury noted. Back: No costovertebral angle tenderness. Full range of motion noted. Skin: Skin warm and dry. Normal skin color. Normal skin turgor. No rashes/lesions/lacerations noted. Extremities: No lower extremity edema. Extremities exhibit normal range of motion. Extremities nontender. Occasional ankle swelling noted, typically resolving by morning. Neuro: Oriented X 3. No motor deficit. No sensory deficit. Reflexes normal. Results - Labs: Thyroid function tests in January were normal. Plan Management involves maintenance of current regimens for hypertension and thyroid disease. Calcium and vitamin D supplements will assist with osteopenia. Routine blood work will be performed to assess overall health status and thyroid function. Cataract surgery is anticipated for the right eye in the summer months. Continual monitoring for any developments in urinary incontinence is suggested, but currently managed with OTC products. Patient was informed and verbally consented to the use of an ambient scribe for clinic note documentation during this visit. Discussion Notes I discussed at length with the patient the necessity of maintaining regular medication regimens for hypertension and hypothyroidism. We addressed the importance of preventive care through supplements for bone health and reviewed her readiness for cataract surgery in the summer. We coordinated lab work timing with upcoming follow-ups to streamline her check-ups and I offered the option of urology consultation if incontinence becomes troublesome, which she declined at this time. Potential adjustments on follow-ups based on routine lab results were also reviewed. Patient Instructions - Continue with current medication regimen. - Schedule comprehensive blood work towards the end of May. - Use OTC absorbent products for incontinence as needed. - Plan for cataract surgery in the summer. - Maintain regular follow-up visits in six months unless issues arise. - Avoid driving at night as safe driving practices.
[2024-04-29 11:49] VITALS: BP 130/70; PULSE 95; TEMP 36.3; O2SAT 95; BMI 34.1
== END 2024-04-29 12:21 | disposition home or self-care (01) ==
PROVIDERS: PCP Internal Medicine; Visit Provider Physician Assistant Medical
DX: E05.90 Thyrotoxicosis, unspecified without thyrotoxic crisis or storm (principal); E66.01 Morbid (severe) obesity due to excess calories; Z68.34 Body mass index [BMI] 34.0-34.9, adult; E55.9 Vitamin D deficiency, unspecified; E04.2 Nontoxic multinodular goiter; I10 Essential (primary) hypertension; D75.1 Secondary polycythemia

== ENCOUNTER → 2024-04-29 10:51 | Outpatient (BNVA) | payer MEDICARE, SELFPAY | PROVIDERS: PCP Internal Medicine; Visit Provider Physician Assistant Medical | DX: E05.90 Thyrotoxicosis, unspecified without thyrotoxic crisis or storm (principal); E66.01 Morbid (severe) obesity due to excess calories; E55.9 Vitamin D deficiency, unspecified; E04.2 Nontoxic multinodular goiter; I10 Essential (primary) hypertension; D75.1 Secondary polycythemia | CPT/HCPCS: 96127; 99212 ==

== ENCOUNTER 2024-05-20 09:44 | Outpatient (REF) | payer MEDICARE, SELFPAY ==
[2024-05-20 11:28] LABS: MANUAL DIFF FLAG NO
[2024-05-20 11:41] LABS: Basophils Absolute Auto 0.1 X10*3/uL (0.0-0.2); Basophils Percent Auto 0.5 % (0-2); Eosinophils Absolute Auto 0.1 X10*3/uL (0.0-0.4); Eosinophils Percent Auto 1.3 % (0-4); Hemoglobin 16.6 g/dl (12.0-16.0); Imm Gran Abs Auto 0.04 X10*3/uL (0.00-0.03); Imm Gran Pct Auto 0.4 % (0.0-0.4); Lymphocytes Absolute Auto 2.1 X10*3/uL (1.2-4.9); Lymphocytes Percent Auto 20.7 % (20-40); Mean Corpuscular HGB Conc 35.3 g/dl (31.0-35.0); Mean Corpuscular Hemoglobin 32.9 pg (27.0-33.0); Mean Corpuscular Volume 93.3 fL (80.0-98.0); Mean Platelet Volume 11.4 fL (9.4-12.3); Monocytes Absolute Auto 0.9 X10*3/uL (0.1-1.2); Monocytes Percent Auto 9.2 % (2-11); Neutrophils Absolute Auto 6.9 x10*3/uL (2.0-8.3); Neutrophils Percent Auto 67.9 % (45-73); Platelet Count 219 X10*3/uL (160-400); Red Blood Count 5.04 X10*6/uL (4.20-5.50); Red Cell Distribution Width 13.1 % (11.0-16.0); White Blood Count 10.1 X10*3/uL (4.8-10.8)
[2024-05-20 11:48] LABS: Estimated Average Glucose 105 mg/dL; Hemoglobin A1C 145.4023 umol/L; Hemoglobin A1c % 5.3 % (<6.0)
[2024-05-20 12:36] LABS: Alanine Aminotransferase 31 U/L (0-31); Albumin Level 4.5 g/dL (3.5-5.0); Alkaline Phosphatase 99 U/L (39-117); Anion Gap 12 (12-20); Aspartate Amino Transferase 23 U/L (5-31); Bilirubin Direct 0.3 mg/dL (0.0-0.5); Bilirubin Total 0.9 mg/dL (0.0-1.0); Blood Urea Nitrogen 12 mg/dL (9-16); C Reactive Protein 0.28 mg/dL (< or = 0.50); Carbon Dioxide 26 mmol/L (22-29); Chloride 107 mmol/L (96-108); Cholesterol 181 mg/dL (<200); Estimated Glomerular Filt Rate > 60; Glucose Fasting 85 mg/dL (60-99); HDL Cholesterol 36 mg/dL (>40); LDL Cholesterol Calculated 118 mg/dL (<100); Phosphorus 2.3 mg/dL (2.7-4.5); Potassium 3.8 mmol/L (3.3-5.1); Sodium 141 mmol/L (135-145); Total Protein 7.8 g/dL (6.5-8.0); Triglycerides 136 mg/dL (<150)
[2024-05-20 12:37] LABS: Free T4 (Free Thyroxine) 1.07 ng/dL (0.71-1.85)
[2024-05-20 12:42] LABS: Vitamin D 25-OH Total 68.2 ng/mL (>30)
[2024-05-20 12:50] LABS: Folate 11.1 ng/mL (> or = 4.0); Vitamin B12 592 pg/mL (200-900)
[2024-05-20 14:36] LABS: Appearance Urine Clear; Color Urine Yellow; Glucose Urine UA Negative (Negative); Leukocyte Esterase Urine Small (1+) (Negative); Nitrite Urine Negative (Negative); PH 5.5 (5.0-9.0); Specific Gravity - Urine 1.015 (1.005-1.025); UMIC TRIGGER UACC YES; Urine Blood Negative (Negative); Urine Ketones Negative (Negative); Urine Protein Negative (Neg-Trace)
[2024-05-20 14:46] LABS: Bacteria Urine None Seen (None Seen); Hyaline Casts Urine 0-2 /LPF (0-2); RBC Urine 0-2 /HPF (0-2); Squamous Epithelial Cell Urine 0-2 /HPF (0-2); UACC Culture Trigger YES; WBC Urine 0-5 /HPF (0-5)
[2024-05-28 14:33] LABS: Vitamin B1 7 nmol/L (8-30)
== END 2024-05-20 09:45 | disposition home or self-care (01) ==
LOC: HO.WFDLDS 09:44
PROVIDERS: Internal Medicine; Referring Provider Internal Medicine Endocrinology, Diabetes & Metabolism; Visit Provider Physician Assistant Medical
DX: Z00.00 Encounter for general adult medical examination without abnormal findings (principal); E05.90 Thyrotoxicosis, unspecified without thyrotoxic crisis or storm; R39.9 Unspecified symptoms and signs involving the genitourinary system; Z13.1 Encounter for screening for diabetes mellitus
CPT/HCPCS: 36415; 80053; 80061; 80076; 81001; 82306; 82607; 82746; 83036; 83735; 84100; 84425; 84439; 84443; 84481; 85025; 86140; 87086

== ENCOUNTER 2024-06-03 10:07 | Outpatient (AMB) | payer MEDICARE, SELFPAY ==
--- NOTE | 2024-06-03 10:13 | MHC.OFFVIS ---
Vital Signs 06/03/24 10:15 Height 5 ft 6 in Weight 213 lb 10.047 oz BMI 34.5 BP 114/64 Blood Pressure Location Lt brachial Position Sitting Pulse 102 H Pulse Source Pulse Oximeter Pulse Oximetry (%) 97 Oxygen Delivery Method Room Air Intake Visit Reasons: f/u toxic MNG Intake Note: Patient present today for toxic MNG follow up. Production Specialist Required: No Accompanied by: Self / Same As Patient Allergies No Known Allergies [No Known Allergies*] Allergy (Verified 06/03/24 10:15) Medication List - Last Reconciled 06/03/24 by Geronimo Artis MD amlodipine 10 mg PO DAILY aspirin 81 mg PO DAILY calcium carbonate 500 mg PO BID cholecalciferol (vitamin D3) 50 mcg PO DAILY lisinopril 40 mg (2 x 20 mg) PO DAILY methimazole 5 mg PO DAILY multivitamin 1 tab PO DAILY rosuvastatin (Crestor) 10 mg PO BEDTIME thiamine HCl (vitamin B1) 100 mg PO DAILY vitamin A-vitamin C-vit E-min 1 tab PO DAILY HPI Comments Details: 79 YO F who is seen in F/U for a Multinodular Goiter. 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 She underwent FNA biopsy 03/19/2018 of her LLP 3.2 cm nodule with benign cytology, and also of the RLP 4.7 cm nodule which had benign cytology. Repeat thyroid US revealed growth of her LUP nodule. She underwent FNA biopsy of her LUP 1.2 cm thyroid nodule 07/27/2020 with benign cytology. Currently denies any dysphagia or hoarseness of voice. Denies sensation of swelling in the neck or difficulty breathing while lying flat. Denies any tenderness in the neck. Denies any symptoms of hyper or hypothyroidism. Denies any history of head or neck irradiation. Denies any family history of thyroid cancer. Had biopsy of nodules in the past. Thyroid US: 09/19/2021 SIZE: Measurements of the thyroid lobes and nodules are given in sagittal, anteroposterior and transverse dimensions respectively. Right Thyroid Lobe: 7.1 x 4.6 x 5.5 cm, volume 93.4 mL. Previously 8.2 x 4.2 x 3.8 cm, volume 68.6 mL. Parenchyma: The gland echotexture is heterogeneous. Thyroid vascularity is normal. Left Thyroid Lobe: 8.0 x 4.3 x 2.1 cm, volume 38.9 mL. Previously 6.2 x 3.0 x 1.7 cm, volume 16.4 mL. Parenchyma: The gland echotexture is heterogeneous. Thyroid vascularity is normal. Isthmus: 1.0 cm in maximum AP dimension. Previously 0.8 cm. Estimated total number of nodules greater than or equal to 1 cm: 3. Manager Of Organizational Development nodules are described as follows: 1.? Location: Right mid/inferior. ?? ? Size: 5.5 x 4.4 x 3.9 cm, volume 49.3 mL. ?? ? Previously: 5.2 x 4.1 x 3.7 cm, volume 41.9 mL. ?? ? Nodule characteristics: ?? ? Composition: Mixed cystic and solid (1). ?? ? Echogenicity: Hyperechoic (1). ?? ? Shape: Taller than wide (3). ?? ? Margins: Smooth (0). ?? ? Echogenic Foci: Macrocalcifications (1). Punctate echogenic foci (3). ? ACR TI-RADS total points: 9 Previous: 6 ?? ? ACR TI-RADS category: 5 Previous: 4 ? Significant change in size (>/= 20% in 2 dimensions and minimal increase of 2 mm or 50% or greater increase in volume): Mild increase in volume ?? ? Change in features: None ?? ? Change in ACR TI-RADS risk category: Increased 2.? Location: Left superior. ?? ? Size: 0.8 x 0.6 x 0.8 cm, volume 0.2 mL. ?? ? Previously: 1.2 x 1.0 x 1.0 cm, volume 0.6 mL. ?? ? Nodule characteristics: ?? ? Composition: Solid (2). ?? ? Echogenicity: Hyperechoic (1). ?? ? Shape: Not taller than wide (0). ?? ? Margins: Ill-defined (0). ?? ? Echogenic Foci: None (0). ? ACR TI-RADS total points: 3 Previous: 0 ?? ? ACR TI-RADS category: 3 Previous: 1 ? Significant change in size (>/= 20% in 2 dimensions and minimal increase of 2 mm or 50% or greater increase in volume): Minimally smaller ?? ? Change in features: None ?? ? Change in ACR TI-RADS risk category: Minimal increase in TI-RADS. 3.? Location: Right mid/inferior. ?? ? Size: 3.2 x 2.3 x 1.9 cm, volume 7.0 mL. ?? ? Previously: 2.9 x 3.1 x 2.0 cm, volume 9.5 mL. ?? ? Nodule characteristics: ?? ? Composition: Solid (2). ?? ? Echogenicity: Hyperechoic (1). ?? ? Shape: Taller than wide (3). ?? ? Margins: Smooth (0). ?? ? Echogenic Foci: None (0).? ACR TI-RADS total points: 6 Previous: 4 ?? ? ACR TI-RADS category: 4 Previous: 4 ? Significant change in size (>/= 20% in 2 dimensions and minimal increase of 2 mm or 50% or greater increase in volume): ?? ? Change in features: None ?? ? Change in ACR TI-RADS risk category: Minimal change NODES: No lymphadenopathy is seen in the tissue surrounding the thyroid gland. Labs: Laboratory Tests 04/28/20 Unknown TSH 1.07 Free T4 1.02 On 5 mg of MMI. No sx of hypo or hyperthyroidism. No obstructive sx . The patient is a 79-year-old female presenting for follow-up of Graves' Disease. She has thyroid nodules previously evaluated via biopsy with benign results. Currently, she takes Methimazole 5 mg daily without side effects like hand tremors or palpitations. Laboratory evaluations continue to be normal, supporting effective management of the condition. Although the thyroid remains slightly enlarged, no issues with swallowing or choking are present. Thyroid antibodies continue to test positive amidst treatment. [facility] Medical History (Updated 05/31/24 @ 17:10 by Racheal Matamoros PA-C) Thiamine deficiency Hyperthyroidism Class 2 severe obesity with body mass index (BMI) of 35 to 39.9 with serious comorbidity Tobacco use disorder Microscopic hematuria Vitamin D deficiency Multinodular thyroid Essential (primary) hypertension Cataract (lens) fragments in eye following cataract surgery, left eye Surgical History History of colonoscopy Hx of cataract extraction History of tonsillectomy Family History Father Angina at rest Melanoma Cardiac disease Leukemia Mother Hypertension Macular degeneration Maternal Grandfather Substance abuse Social History Housing: Apartment Alcohol intake: current Alcohol intake frequency: holidays/special occasions only Patient Tobacco Use Status: Current everyday Tobacco user Tobacco use type: Cigarette Cigarette Packs Per Day: 0.5 Cigarettes Per Day: 10 e-Cigarette/Vaping Use: Never Used Second Hand Smoke Exposure: Yes service: No Current occupational status: retired Cognitive needs: No Hearing needs: Yes (hearing aides) Vision needs: Yes (Glasses) Physical Exam Vital Signs: Last Vital Signs Pulse 102 H 06/03/24 10:15 BP 114/64 06/03/24 10:15 Pulse Ox 97 06/03/24 10:15 Oxygen Delivery Method Room Air 06/03/24 10:15 BMI result Body Mass Index 34.5 Const Other: Thyroid gland is top normal size weighs about 20 g. There are no palpable discrete thyroid nodule Assessment & Plan Assessment & Plan (1) Multinodular thyroid: Code(s): E04.2 - Nontoxic multinodular goiter Category: Medical Plan: This 78-year-old white female with history of toxic multinodular goiter status post multiple biopsies of right and left thyroid nodules with benign cytology. Patient appears clinically biochemically euthyroid on methimazole 10 mg q.d.. Recent thyroid ultrasound shows no significant change in the size of the nodules. Plan is continue the current management. We will have patient follow-up Dr. Flores an customer relations specialist in our office was expertise in thyroid ultrasound 1. Graves' Disease: The patient remains on Methimazole 5 mg daily for management of Graves' Disease, with current thyroid function tests indicating adequate disease control. No adverse effects such as tremors or palpitations present. While thyroid antibodies persist, I have informed her of possible rare side effects of Methimazole and surgical removal alternatives, though not advised presently. A possible follow-up thyroid ultrasound after visit with Dr. Flores is scheduled in 6 months to ensure nodule stability, with repeat blood tests to monitor antibodies preceding the visit. I informed the patient that her Graves' Disease remains under control with Methimazole, though thyroid antibodies are still positive. We discussed rare side effects of continued medication, as well as surgical alternatives for thyroid removal, though not recommended. I suggested follow-up with Dr. Flores for a thyroid ultrasound in 6 months and repeat blood tests beforehand. The patient was advised to monitor for symptoms like sore throat or jaundice due to rare risks associated with Methimazole. - Continue taking Methimazole 5 mg daily as prescribed. - Schedule an appointment with Dr. Flores for a thyroid ultrasound in 6 months. - Complete blood work, including antibodies, two weeks prior to follow-up. - Monitor for and report any symptoms like sore throat or jaundice immediately. - The patient had an opportunity to ask questions regarding treatment plan. The patient expressed understanding and agreement with the above treatment plan. The patient is aware they should contact our office by phone for worsening glucose readings or for any low blood sugars which may warrant a change in diabetes medication. Compliance is encouraged with medications and any followup testing/consults which may have been ordered. Patient was informed and verbally consented to the use of an ambient scribe for clinic note documentation during this visit. (2) Hyperthyroidism: Code(s): E05.90 - Thyrotoxicosis, unspecified without thyrotoxic crisis or storm Category: Medical Plan: Clinically and biochemally euthyroid on methimazole 5 mg with positive TRAB antibodies. Will continue current management . Also went over different options of treatment including definitive therapy with surgery or radioactive iodine versus continuation of antithyroid medication Orders: Orders Triiodothyronine T3 Free 6 Months E04.2 - Nontoxic multinodular goiter, E05.90 - Thyrotoxicosis, unspecified without thyrotoxic crisis or storm Thyroid Stimulating Hormone 6 Months E04.2 - Nontoxic multinodular goiter, E05.90 - Thyrotoxicosis, unspecified without thyrotoxic crisis or storm Free T4 (Free Thyroxine) 6 Months E04.2 - Nontoxic multinodular goiter, E05.90 - Thyrotoxicosis, unspecified without thyrotoxic crisis or storm Thyrotropin Receptor Antibody 6 Months E04.2 - Nontoxic multinodular goiter, E05.90 - Thyrotoxicosis, unspecified without thyrotoxic crisis or storm Coding Level of Care Code Est Pt Level 3 (23443) Diagnoses Multinodular thyroid E04.2 Hyperthyroidism E05.90
[2024-06-03 10:15] VITALS: BP 114/64; PULSE 102; O2SAT 97; BMI 34.5
== END 2024-06-03 10:36 | disposition home or self-care (01) ==
LOC: HO.ENCR 10:08
PROVIDERS: PCP Internal Medicine; Visit Provider Internal Medicine Endocrinology, Diabetes & Metabolism
DX: E04.2 Nontoxic multinodular goiter (principal); E05.90 Thyrotoxicosis, unspecified without thyrotoxic crisis or storm
CPT/HCPCS: 99213

== ENCOUNTER → 2024-06-03 10:07 | Outpatient (BNVA) | payer MEDICARE, SELFPAY | PROVIDERS: PCP Internal Medicine; Visit Provider Internal Medicine Endocrinology, Diabetes & Metabolism | DX: E04.2 Nontoxic multinodular goiter (principal); E05.00 Thyrotoxicosis with diffuse goiter without thyrotoxic crisis or storm | CPT/HCPCS: 99212 ==

== ENCOUNTER 2024-09-09 14:13 | Outpatient (AMB) | payer MEDICARE, SELFPAY ==
[2024-09-09 14:18] VITALS: BP 120/72; PULSE 85; TEMP 36.2; O2SAT 93; BMI 33.1
--- NOTE | 2024-09-09 14:18 | MHC.PC.OV ---
Vital Signs 09/09/24 14:18 Height 5 ft 6 in Weight 205 lb 6 oz BMI 33.1 BP 120/72 Blood Pressure Location Lt brachial Position Sitting Pulse 85 Pulse Source Pulse Oximeter Temp 97.1 F Temp Source Temporal Artery Scan Pulse Oximetry (%) 93 Oxygen Delivery Method Room Air Intake Visit Reasons: [facility] cataract 08/31 Intake Note: Patient is here for a Pre-op for Cataracts surgery scheduled with on 09/30/24 Golf Cart Attendant Required: No Accompanied by: Self / Same As Patient Allergies No Known Allergies (No Known Allergies*) Allergy (Verified 09/09/24 15:53) Medication List - Last Reconciled 09/09/24 by Seymour Wild MD amlodipine 10 mg PO DAILY aspirin 81 mg PO DAILY calcium carbonate 500 mg PO BID cholecalciferol (vitamin D3) 50 mcg PO DAILY lisinopril 40 mg (2 x 20 mg) PO DAILY methimazole 5 mg PO DAILY multivitamin 1 tab PO DAILY rosuvastatin (Crestor) 10 mg PO BEDTIME thiamine HCl (vitamin B1) 100 mg PO DAILY vitamin A-vitamin C-vit E-min 1 tab PO DAILY Tobacco use date assessed: 04/29/24 Fall risk assessment: No Falls in past year Last assessed Fall Risk: 09/09/24 Dental Screening Dental Screen Date: 04/29/24 HPI [facility] cataract 08/31 HPI Details 79-year-old female presents to the office requesting a preop clearance. She is scheduled for a right eye cataract extraction under local [facility].. [facility] Medical History Thiamine deficiency Hyperthyroidism Class 2 severe obesity with body mass index (BMI) of 35 to 39.9 with serious comorbidity Tobacco use disorder Microscopic hematuria Vitamin D deficiency Multinodular thyroid Essential (primary) hypertension Cataract (lens) fragments in eye following cataract surgery, left eye Surgical History History of colonoscopy (~10/15/17) Hx of cataract extraction History of tonsillectomy Family History Father Angina at rest Melanoma Cardiac disease Leukemia Mother Hypertension Macular degeneration Maternal Grandfather Substance abuse Social History Housing: Apartment Alcohol intake: current Alcohol intake frequency: holidays/special occasions only Patient Tobacco Use Status: Current everyday Tobacco user Tobacco use type: Cigarette Cigarette Packs Per Day: 0.5 Cigarettes Per Day: 10 e-Cigarette/Vaping Use: Never Used Second Hand Smoke Exposure: Yes service: No Current occupational status: retired Cognitive needs: No Hearing needs: Yes (hearing aides) Vision needs: Yes (Glasses) Questionnaire Thrive Questionnaire Date Thrive assessed: 04/29/24 ODILON-7 AMB Questionnaire ODILON-7 Date ODILON - 7 assessed: 04/29/24 Source: Developed by Drs. Geronimo Davis, Tosha Madrid, Marlo Oneill and colleagues, with an educational ruiz from [employer]. Physical exam (Primary Care) Vital Signs: Last Vital Signs Temp 97.1 F 09/09/24 14:18 Pulse 85 09/09/24 14:18 BP 120/72 09/09/24 14:18 Pulse Ox 93 09/09/24 14:18 Oxygen Delivery Method Room Air 09/09/24 14:18 BMI result Body Mass Index 33.1 Tobacco/Smoking Status: Tobacco use Status Tobacco use date assessed 04/29/24 09/09/24 14:19 Patient Tobacco Use Status Current everyday Tobacco 09/09/24 14:19 Tobacco use type Cigarette 09/09/24 14:19 e-Cigarette/Vaping Use Never Used 09/09/24 14:19 Thrive Assessment: Date of Thrive Assessment Date Thrive assessed 04/29/24 09/09/24 14:19 Const General: cooperative and healthy appearing Nutritional Appearance: well nourished Orientation/consciousness: patient oriented x3 Limitations: no limitations HENMT Head: Yes normal to inspection Eyes General: appearance normal, both eyes and all related structures Neck Neck: Yes normal visual inspection Chest Chest palpation & inspection: normal palpation of entire chest wall Resp Effort & Inspection: normal respiratory effort Neuro General: patient oriented x3 Coding Level of Care Code Est Pt Level 4 (61273) Complex EM visit Add On G2211 Diagnoses Essential (primary) hypertension I10 Preoperative clearance Z01.818 Assessment & Plan Assessment & Plan (1) Essential (primary) hypertension: Code(s): I10 - Essential (primary) hypertension Category: Medical Plan: Blood pressure in range. Blood work and EKG ordered. (2) Preoperative clearance: Code(s): Z01.818 - Encounter for other preprocedural examination Plan: Cleared for surgery. Blood work and EKG to be sent to the embroidery assistant. Orders: Orders Complete Blood Count no Diff Today I10 - Essential (primary) hypertension Thyroid Stimulating Hormone Today I10 - Essential (primary) hypertension Liver Panel Today I10 - Essential (primary) hypertension UA and rflx microscopic Today I10 - Essential (primary) hypertension Basic Metabolic Panel Today I10 - Essential (primary) hypertension Lipid Panel Today I10 - Essential (primary) hypertension ECG 12 lead EKG Today I10 - Essential (primary) hypertension Medications: Refilled lisinopril 40 mg (2 x 20 mg) PO DAILY 90 tabs 1RF
--- OUTSIDE RECORDS SUMMARY | 2024-09-09 14:27 | XMS_ITS | Patient Health Record ---
Author Organization [facility] Address [address] [place] [address] Care Team Providers Care Head Bone Grinder Name Role Phone Audie Bejarano Primary Care Provider Unavailab Geronimo Vanessa Unavailable [phone] Reason For Referral No Information Medications Medication SIG (Take, Route, Frequency, Duration) Notes Start Date End Date Status Lisinopril 20 MG TK 1 T PO QD Oral for 90 Active Aspir-81 81 MG 1 tablet Orally Once a day Active amLODIPine Besylate 10 MG TK 1 T PO QD Oral for 90 Active Multivitamin Adult A ctive Ocuvite Active Caltrate 600 Active Immunizations Vaccine Route Administration Date Status Comme nts Influenza Unknown 11/01/2016 Administered Social History Tobacco Use: Social History Observation Description Date Details (start date - stop date) Current Smoker NA - NA Tobacco Use/Smoking Question Answer Notes Patient is a current smoker How often do you smoke cigarettes? every day How many cigarettes a day do you smoke? 6-10 Alcohol Screen Question Answer Notes Did you have a drink contain ing alcohol in the past year? Yes How often did you have a dri nk containing alcohol in the past year? Monthly or less (1 point) How many drinks did you have on a typical day when you were drinking in the past year? 1 or 2 drinks (0 point) How often did you have 6 or more drinks on one occasion in the past year? Never (0 point) Points 1 Interpretation Negative Section Notes: Smoker 6 cigs QD; no sig alc ohol Problems Problem Type SNOMED Code ICD Code Onset Dates Problem Status W/U Status Risk Notes Problem [id number] Encounter for screening for malignant neoplasm of colon (Z12.11) Active confirmed Problem 477532358299641 Pre-procedural examination (Z01.818) Active confirmed Problem 651089733 Encounter for long-term (current) aspirin use (Z79.82) Active confirmed Plan Of Treatment Pending Test Test Name Order Date GI BIOPSY 10/15/2017 Future Test Test Name Order Date COLONOSCOPY 08/26/2017 Insurance Providers Payer Name Payer Address Payer Phone Subscriber Number Group Number Insured Name Patient Relationship to Insured Coverage Start Date Coverage End Date MEDICARE OF [place] [address] [place] [address] [phone] [id number] ARIS CORNELIUS Self - patient is the insured [facility] SUPPLEMENTAL PLAN [address] [place], [place] [address] [id number] ARIS CORNELIUS Self - patient is the insured Medical (General) History Medical History History ICD Code Hypertension Denies [place],DM,CVA,Lung disease,renal dise ase Sleep apnea-cpap Urinary incontinence-mild Surgical History Surgery Date(Month/Year) Tonsillectomy
== END 2024-09-09 15:47 | disposition home or self-care (01) ==
LOC: HO.HMCH 14:13
PROVIDERS: PCP Internal Medicine; Visit Provider Internal Medicine
DX: I10 Essential (primary) hypertension (principal); Z01.818 Encounter for other preprocedural examination

== ENCOUNTER → 2024-09-09 14:13 | Outpatient (BNVA) | payer MEDICARE, SELFPAY | PROVIDERS: PCP Internal Medicine; Visit Provider Internal Medicine | DX: Z01.818 Encounter for other preprocedural examination (principal); H26.9 Unspecified cataract; I10 Essential (primary) hypertension | CPT/HCPCS: 99212 ==

== ENCOUNTER 2024-09-10 07:54 | Outpatient (REF) | payer MEDICARE, SELFPAY ==
--- NOTE | 2024-09-10 07:58 | ECG_ITS ---
Test Reason : HTN Blood Pressure : */* mmHG Vent. Rate : 88 BPM Atrial Rate : 88 BPM P-R Int : 142 ms QRS Dur : 74 ms QT Int : 376 ms P-R-T Axes : 55 29 63 degrees QTcB Int : 454 ms Normal sinus rhythm Normal ECG No previous ECGs available Referred By: Seymour Wild Electronically Signed By: Phillip Stephens
--- OUTSIDE RECORDS SUMMARY | 2024-09-10 07:58 | XMS_ITS | Patient Health Record ---
Author Organization [facility] Address [address] [place] [address] Care Team Providers Care Hoop Machine Operator Name Role Phone Audie Bejarano Primary Care Provider Unavailab Geronimo Vanessa Unavailable [phone] Reason For Referral No Information Medications Medication [...] Problem Status W/U Status Risk Notes Problem 772516556 Encounter for screening for malignant neoplasm of colon (Z12.11) Active confirmed Problem 148818434317127 Pre-procedural examination (Z01.818) Active confirmed Problem 424982079 Encounter for long-term (current) aspirin use (Z79.82) Active confirmed Plan Of Treatment Pending Test Test Name Order Date GI BIOPSY 10/15/2017 Future Test Test Name Order Date COLONOSCOPY 08/26/2017 Insurance Providers Payer Name Payer Address Payer Phone Subscriber Number Group Number Insured Name Patient Relationship to Insured Coverage Start Date Coverage End Date [place]ARE OF [place] [address] [place] [address] [id number] ARIS CORNELIUS Self - patient is the insured [facility] SUPPLEMENTAL PLAN [address] [place], [place] [address] [phone] [id number] ARIS CORNELIUS Self - patient is the insured Medical (General) History Medical History History ICD Code Hypertension Denies [place],DM,CVA,Lung disease,renal dise ase Sleep apnea-cpap Urinary incontinence-mild Surgical History Surgery Date(Month/Year) Tonsillectomy
[2024-09-10 08:39] LABS: Hematocrit 46.6 % (37.0-47.0); Hemoglobin 16.4 g/dl (12.0-16.0); Mean Corpuscular HGB Conc 35.2 g/dl (31.0-35.0); Mean Corpuscular Hemoglobin 33.0 pg (27.0-33.0); Mean Corpuscular Volume 93.8 fL (80.0-98.0); NRBC Abs Auto 0.000 X10*3/uL (0.0-0.012); NRBC Pct Auto 0.0 /100WBC (0.0-0.2); Platelet Count 210 X10*3/uL (160-400); Red Blood Count 4.97 X10*6/uL (4.20-5.50); White Blood Count 10.0 X10*3/uL (4.8-10.8)
[2024-09-10 09:16] LABS: Alanine Aminotransferase 26 U/L (0-31); Albumin Level 4.7 g/dL (3.5-5.0); Alkaline Phosphatase 87 U/L (39-117); Anion Gap 13 (12-20); Aspartate Amino Transferase 27 U/L (5-31); Blood Urea Nitrogen 14 mg/dL (9-16); Calcium 10.1 mg/dL (8.4-10.2); Carbon Dioxide 25 mmol/L (22-29); Chloride 106 mmol/L (96-108); Cholesterol 110 mg/dL (<200); Estimated Glomerular Filt Rate > 60; HDL Cholesterol 36 mg/dL (>40); Potassium 3.9 mmol/L (3.3-5.1); Sodium 140 mmol/L (135-145); Total Protein 7.4 g/dL (6.5-8.0); Triglycerides 114 mg/dL (<150)
[2024-09-10 09:26] LABS: Thyroid Stimulating Hormone 2.28 uIU/mL (0.32-4.0)
[2024-09-10 09:26] LABS: Appearance Urine Clear; Glucose Urine UA Negative (Negative); PH 6.5 (5.0-9.0); Specific Gravity - Urine 1.020 (1.005-1.025); UMIC TRIGGER UA YES; UMIC TRIGGER UACC YES
[2024-09-10 09:29] LABS: UACC Culture Trigger YES
== END 2024-09-10 07:55 | disposition home or self-care (01) ==
LOC: HO.LAB 07:54
PROVIDERS: PCP Internal Medicine; Visit Provider Internal Medicine
DX: I10 Essential (primary) hypertension (principal)
CPT/HCPCS: 36415; 80048; 80061; 80076; 81001; 84443; 85027; 87086; 93005

== ENCOUNTER → 2024-09-10 07:58 | Outpatient (BNV) | payer MEDICARE, SELFPAY | PROVIDERS: PCP Internal Medicine; Visit Provider Internal Medicine Cardiovascular Disease | DX: I10 Essential (primary) hypertension (principal) | CPT/HCPCS: 93010 ==

== ENCOUNTER 2024-11-30 10:36 | Outpatient (REF) | payer MEDICARE, SELFPAY ==
--- OUTSIDE RECORDS SUMMARY | 2024-11-30 11:52 | XMS_ITS | Patient Health Record ---
Author Organization [facility] Address [address] [place] [address] Care Team Providers Care Camp Tender Name Role Phone Audie Bejarano Primary Care Provider Unavailab Geronimo Vanessa Unavailable [phone] Reason For Referral No Information Medications Medication [...] Problem Status W/U Status Risk Notes Problem 491872742 Encounter for screening for malignant neoplasm of colon (Z12.11) Active confirmed Problem 752732259604304 Pre-procedural examination (Z01.818) Active confirmed Problem 409556730 Encounter for long-term (current) aspirin use (Z79.82) Active confirmed Plan Of Treatment Pending Test Test Name Order Date GI BIOPSY 10/15/2017 Future Test Test Name Order Date COLONOSCOPY 08/26/2017 Insurance Providers Payer Name Payer Address Payer Phone Subscriber Number Group Number Insured Name Patient Relationship to Insured Coverage Start Date Coverage End Date [place]ARE OF [place] [address] [place] [address] [id number] ARIS CORNELIUS Self - patient is the insured [facility] SUPPLEMENTAL PLAN [address] [place], [place] [address] [id number] ARIS CORNELIUS Self - patient is the insured Medical (General) History Medical History History ICD Code Hypertension Denies [place],DM,CVA,Lung disease,renal dise ase Sleep apnea-cpap Urinary incontinence-mild Surgical History Surgery Date(Month/Year) Tonsillectomy
[2024-11-30 14:23] LABS: Appearance Urine Clear; Glucose Urine UA Negative (Negative); PH 7.0 (5.0-9.0); Specific Gravity - Urine 1.020 (1.005-1.025); UMIC TRIGGER UACC YES
[2024-11-30 14:39] LABS: UACC Culture Trigger YES
[2024-11-30 15:16] LABS: Free T4 (Free Thyroxine) 0.96 ng/dL (0.71-1.85); Thyroid Stimulating Hormone 1.78 uIU/mL (0.32-4.0)
== END 2024-11-30 10:37 | disposition home or self-care (01) ==
LOC: HO.WFDLDS 10:36
PROVIDERS: Referring Provider Internal Medicine; Visit Provider Internal Medicine Endocrinology, Diabetes & Metabolism
DX: E05.90 Thyrotoxicosis, unspecified without thyrotoxic crisis or storm (principal); E04.2 Nontoxic multinodular goiter; I10 Essential (primary) hypertension
CPT/HCPCS: 36415; 81001; 83520; 84439; 84443; 84481; 87086

== ENCOUNTER 2024-12-01 10:36 | Outpatient (AMB) | payer MEDICARE, SELFPAY ==
--- NOTE | 2024-12-01 10:41 | AM.OFFVISMDC ---
Intake Vital Signs 12/01/24 10:44 Height 5 ft 6 in Weight 206 lb 4 oz BMI 33.3 BP 102/68 Blood Pressure Location Lt brachial Position Sitting Pulse 86 Pulse Source Pulse Oximeter Temp 97.1 F Temp Source Temporal Artery Scan Pulse Oximetry (%) 94 Oxygen Delivery Method Room Air Intake Visit Reasons: AWV Intake Note: Patient is here for an Annual Wellness Visit. 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 Required: No Molding Machine Tender: Molding Machine Tender offered & declined Accompanied by: Self / Same As Patient Allergies No Known Allergies (No Known Allergies*) Allergy (Verified 12/03/24 10:19) HPI AWV HPI Details as above PFSH Medical History Thiamine deficiency Hyperthyroidism Class 2 severe obesity with body mass index (BMI) of 35 to 39.9 with serious comorbidity Tobacco use disorder Microscopic hematuria Vitamin D deficiency Multinodular thyroid Essential (primary) hypertension Cataract (lens) fragments in eye following cataract surgery, left eye Surgical History History of biopsy History of squamous cell carcinoma excision History of colonoscopy (~10/15/17) Hx of cataract extraction History of tonsillectomy Family History Father Angina at rest Melanoma Cardiac disease Leukemia Mother Hypertension Macular degeneration Maternal Grandfather Substance abuse Social History Housing: Apartment Alcohol intake: current Alcohol intake frequency: holidays/special occasions only Patient Tobacco Use Status: Current everyday Tobacco user Tobacco use type: Cigarette Cigarette Packs Per Day: 0.5 Cigarettes Per Day: 10 e-Cigarette/Vaping Use: Never Used Second Hand Smoke Exposure: Yes service: No Current occupational status: retired Cognitive needs: No Hearing needs: Yes (hearing aides) Vision needs: Yes (Glasses) Questionnaire Medicare Wellness Checkup [age] What gender do you identify with?: female During the past 4 weeks, how much have you been bothered by emotional problems such as feeling anxious, depressed, irritable, sad or downhearted, and blue?: not at all During the past 4 weeks, has your physical & emotional health limited your social activities with family, friends, neighbors, or groups?: not at all During the past 4 weeks, how much bodily pain have you generally had?: very mild pain During the past 4 weeks, was someone available to help you if you needed & wanted help?: yes, as much as I wanted During the past 4 weeks, what was the hardest physical activity you could do for at least 2 minutes?: moderate Can you get to places out of walking distance without help? (For eg., can you travel alone on buses, taxis or drive your car?): Yes Can you go shopping for groceries or clothes without someone's help?: Yes Can you prepare your own meals?: Yes Can you do your housework without help?: Yes Because of any health problems, do you need the help of another person with your personal care needs such as eating, bathing, dressing or getting around the house?: No Can you handle your own money without help?: Yes During the past 4 weeks, how would you rate your health in general?: very good During the past 4 weeks how have things been going for you?: pretty well Are you having difficulties driving your car?: no Do you always fasten your seat belt when you are in a car?: yes, usually During past 4 weeks, have you been bothered by the following: never: Falling or dizzy when standing up, Sexual problems?, Trouble eating well? and Problems using the telephone? and sometimes: Teeth or denture problems? and Tiredness or fatigue? Have you fallen 2 or more times in the past year?: No Are you afraid of falling?: No Are you a smoker?: yes, but I'm not ready to quit During the past 4 weeks, how many drinks of wine, beer, or other alcoholic beverages did you have?: no alcohol at all Do you exercise for about 20 minutes 3 or more times a week?: no, I usually do not exercise this much Have you been given information to help with the following?: yes: Hazards in your house that might hurt you? and yes: Keeping track of your medications? How often do you have trouble taking medicines the way you have been told to take them?: I always take medicine as prescribed How confident are you that you can control & manage most of your health problems?: somewhat confident What is your race?: White Mini Mental State Exam (MMSE) Orientation What is the (year) (season) (date) (day) (month)?: year, season and date Where are we (state) (county) (town or city) (hospital) (floor)?: state, county and town or city Registration Name of 3 unrelated objects clearly and slowly, then ask patient to repeat all 3 of them. (1st repeat determines score. Make sure they can repeat all three): object 1, object 2 and object 3 Score Score: 9 Activity of Daily Living Bathing - sponge bath, tub bath or shower: receives no assistance (gets in/out by self, if usual bathing means Dressing - getting clothes from closets & drawers, including inner/outer garments & fasteners.: gets clothes & gets completely dressed without help Toileting - going to the 'toilet room' for urine/bowel elimination & cleaning self/arranging clothes: goes to toilet room, cleans self, arranges clothes without help Transfer: moves in & out of bed and chair without help (may use support object) Continence: controls urination/bowel movements completely by self Feeding: feeds self without help Total Score: 0 Information obtained from: patient Using telephone: independent Traveling: independent Shopping: independent Preparing meals: independent Housework: independent Taking medicine: independent Managing money: independent PHQ-9 Over the last 2 weeks, how often have you been bothered by any of the following problems? 1. Little interest or pleasure in doing things: not at all 2. Feeling down, depressed, or hopeless: not at all 3. Trouble falling or staying asleep, or sleeping too much: not at all 4. Feeling tired or having little energy: several days 5. Poor appetite or overeating: not at all 6. Feeling bad about yourself - or that you are a failure or have let yourself or your family down: not at all 7. Trouble concentrating on things, such as reading the newspaper or watching television: not at all 8. Moving or speaking so slowly that other people could have noticed. Or the opposite - being so fidgety or restless that you have been moving around a lot more than usual: not at all 9. Thoughts that you would be better off or of hurting yourself in some way: not at all Total score: 1 Depression Screening Interpretation: Positive Depression Screening Done: Yes Source: Developed by Drs. Geronimo Davis, Marlo Louis and colleagues, with an educational ruiz from [employer]. Thrive Questionnaire Date Thrive assessed: 04/29/24 ODILON-7 AMB Questionnaire ODILON-7 Date ODILON - 7 assessed: 04/29/24 Source: Developed by Drs. Geronimo Davis, Marlo Louis and colleagues, with an educational ruiz from [employer]. Physical Exam Vital Signs: Last Vital Signs Temp 97.1 F 12/01/24 10:44 Pulse 86 12/01/24 10:44 BP 102/68 12/01/24 10:44 Pulse Ox 94 12/01/24 10:44 Oxygen Delivery Method Room Air 12/01/24 10:44 BMI result Body Mass Index 33.3 Balance: normal Romberg: negative Tandem Walk:unable to Walk and Turn: able to Rise from sit to stand:unable to Hearing Whisper test: Pass Assessment & Plan Assessment & Plan (1) Urinary incontinence: Code(s): R32 - Unspecified urinary incontinence Plan: History of Present Illness - The patient is a 74-year-old female presenting with severe leg pain and difficulty walking. - The leg pain, described as similar to carlson splints, began about a year ago and is most severe in the morning and after supper. - The patient has discontinued statins for 7-8 weeks without improvement in symptoms. - She uses a walker for mobility and occasionally a wheelchair for longer distances. - Previous knee x-rays indicated arthritis, and Tylenol provides minimal pain relief. - Sleep is disturbed due to leg pain, necessitating sitting on the bed for 20-30 minutes before walking in the morning. Social History - The patient uses a walker for mobility and occasionally a wheelchair for longer distances, indicating limited physical activity. Review of Systems - Musculoskeletal: Reports severe leg pain, particularly in the shins, exacerbated by walking and coughing. Denies upper body pain. - Neurological: Reports sleep disturbances due to leg pain. Physical Exam General: Cooperative and healthy appearing Nutritional Appearance: Well nourished Orientation/consciousness: Patient oriented x3 Limitations: No limitations Head: Normal to inspection General: Appearance normal, both eyes and all related structures Neck: Normal visual inspection Chest: Normal palpation of entire chest wall Respiratory: N ormal respiratory effort Neurology: Patient oriented x3, but reports significant pain in the legs, particularly in the shins, which worsens in the morning and after supper. The patient uses a cane and sometimes a wheelchair for mobility. Reports difficulty sleeping due to leg pain. No upper body pain reported. Results - Imaging: Previous knee x-rays showed arthritis. Plan - Start extra strength Tylenol, 500 mg, two tablets at bedtime for pain relief. - Follow-up in one month to evaluate pain control and consider alternative treatments if needed. Discussion Notes I discussed with the patient the likely diagnosis of arthritis and the management plan, which includes starting extra strength Tylenol for pain relief. We talked about the safety of Tylenol compared to other medications and the plan to reassess in one month. If the pain persists, we will consider stronger medications or injections. I emphasized the importance of taking the medication consistently and scheduled a follow-up appointment in four weeks. Patient Instructions - Take two extra strength Tylenol (500 mg each) at bedtime every night with food. - Do not skip doses even if feeling better. - Return for a follow-up appointment in one month to assess pain management. (2) Annual physical exam: Code(s): Z00.00 - Encounter for general adult medical examination without abnormal findings Plan: [place] of Care completed and Individualized Screening Schedule provided. Orders: Referrals Urology Referral R32 - Unspecified urinary incontinence Quality Reporting (2019) Depression/Bipolar (159/160/161/177) PHQ-9: Total score: 1 Coding Level of Care Code Medicare First (G0438) Diagnoses Urinary incontinence R32 Annual physical exam Z00.00
[2024-12-01 10:44] VITALS: BP 102/68; PULSE 86; TEMP 36.2; O2SAT 94; BMI 33.3
--- OUTSIDE RECORDS SUMMARY | 2024-12-01 12:12 | XMS_ITS | Patient Health Record ---
Author Organization [facility] Address [address] [place] [address] Care Team Providers Care Hand Ironer Name Role Phone Audie Bejarano Primary Care Provider Unavailab Geronimo Vanessa Unavailable [phone] Reason For Referral No Information Medications Medication [...] Problem Status W/U Status Risk Notes Problem [id number] Encounter for screening for malignant neoplasm of colon (Z12.11) Active confirmed Problem [id number] Pre-procedural examination (Z01.818) Active confirmed Problem [id number] Encounter for long-term (current) aspirin use (Z79.82) Active confirmed Plan Of Treatment Pending Test Test Name Order Date GI BIOPSY 10/15/2017 Future Test Test Name Order Date COLONOSCOPY 08/26/2017 Insurance Providers Payer Name Payer Address Payer Phone Subscriber Number Group Number Insured Name Patient Relationship to Insured Coverage Start Date Coverage End Date MEDICARE OF [place] [address] [place] [address] [phone] [id number] ARIS CORNELIUS Self - patient is the insured [facility] [employer] [address] [place], [place] [id number] ARIS CORNELIUS Self - patient is the insured Medical (General) History Medical History History ICD Code Hypertension Denies [place],DM,CVA,Lung disease,renal dise ase Sleep apnea-cpap Urinary incontinence-mild Surgical History Surgery Date(Month/Year) Tonsillectomy
== END 2024-12-01 11:30 | disposition home or self-care (01) ==
LOC: HO.HMCH 10:37
PROVIDERS: PCP Internal Medicine; Visit Provider Internal Medicine
DX: Z00.00 Encounter for general adult medical examination without abnormal findings (principal); R32 Unspecified urinary incontinence

== ENCOUNTER 2024-12-03 09:54 | Outpatient (AMB) | payer MEDICARE, SELFPAY ==
[2024-12-03 10:18] VITALS: BP 110/58; PULSE 96; O2SAT 96; BMI 33.5
--- NOTE | 2024-12-03 10:18 | A.OFFVIS_ITS ---
Vital Signs 12/03/24 10:18 Height 5 ft 6 in Weight 207 lb 7.28 oz BMI 33.5 BP 110/58 L Blood Pressure Location Lt brachial Position Sitting Pulse 96 Pulse Source Pulse Oximeter Pulse Oximetry (%) 96 Oxygen Delivery Method Room Air Intake Visit Reasons: f/u Graves DX /MNG Intake Note: Patient present today for Graves DX and MNG office visit. Production Sampler Required: No Accompanied by: Self / Same As Patient Allergies No Known Allergies (No Known Allergies*) Allergy (Verified 12/03/24 10:19) Medication List - Last Reconciled 12/03/24 by Suzanne Flores MD amlodipine 10 mg PO DAILY aspirin 81 mg PO DAILY calcium carbonate 500 mg PO BID cholecalciferol (vitamin D3) 50 mcg PO DAILY lisinopril 40 mg (2 x 20 mg) PO DAILY methimazole 5 mg PO DAILY multivitamin 1 tab PO DAILY rosuvastatin (Crestor) 10 mg PO BEDTIME thiamine HCl (vitamin B1) 100 mg PO DAILY HPI Comments Details: 79-year-old female coming in today for initial evaluation hyperthyroidism second gene to Graves disease and multinodular goiter. For her multinodular goiter, she has had nodules at least since 2019. 03/19/2018: Status post FNA biopsy of the left lower pole 3.2 cm and right lower pole 4.7 cm nodule with benign cytology Repeat thyroid ultrasound in 2020 showed significant increase in the size of the left superior pole nodule. Status post FNA of the left superior pole 1.2 cm thyroid nodule 07/27/2020 with benign cytology. Ultrasound thyroid most recently done 08/21/2022 which showed the right lower pole 4.5 cm nodule mixed cystic solid, isoechoic, which has somewhat decreased in size compared to previous ultrasound and also downgraded in TI-RADS category. The right midpole 1.3 cm new nodule solid isoechoic TR 3 category, does not meet criteria for FNA. The left superior 1.2 cm nodule which is mixed cystic solid, isoechoic, TR 3 category had some was increased in size. However this was the 1 biopsied before in 2020 and was benign. The left midpole 4.2 cm solid hypoechoic TR 4 nodule had a mild increase in size. No ultrasound done after that. In January 2022 he also developed hyperthyroidism with hi TSI, TSH receptor antibodies consistent with underlying autoimmune/Graves disease. He was started on methimazole. He has been on it since then. Thyroid uptake and scan 02/20/2022 showed heterogenous appearance mid to lower aspects of both right and left glands. Showed elevated uptake, with a cold areas in mid to lower right lobe as well as lower left lobe correlating with the 2 dominant nodules in bilateral gland. Currently on methimazole 5 mg daily No history of head or neck radiation. No family history of thyroid cancer Physical exam General: sitting comfortably in no acute distress HEENT: normocephalic/atraumatic, Neck: supple, palpable 1 cm right-sided nodule, palpable 2 cm left-sided nodule Cardiac: normal heart sounds Pulm: normal breath sounds B/L, no added breath sounds Abd: not distended, no tenderness Extremities: no edema, no signs of myxedema Laboratory Tests 01/18/22 03/02/24 09/10/24 09:15 10:24 08:20 WBC Neut % (Auto) Absolute Neuts (auto) AST 27 ALT 26 Alkaline Phosphatase 87 Thyroid Stim Immunoglob 370 H TSH Free T4 Free T3 Thyroglobulin Antibody <1 Thyroid Peroxidase Ab 1 TSH Receptor Ab 9.42 H 3.63 H 11/26/24 11/30/24 09:53 10:38 WBC 12.2 H Neut % (Auto) 67.4 Absolute Neuts (auto) 8.2 AST ALT Alkaline Phosphatase Thyroid Stim Immunoglob TSH 1.78 Free T4 0.96 Free T3 3.2 Thyroglobulin Antibody Thyroid Peroxidase Ab TSH Receptor Ab US THYROID 08/21/22 CLINICAL INFORMATION: Nontoxic multinodular goiter. COMPARISON: Thyroid ultrasound 09/19/2021 and 05/09/2020. Ultrasound-guided thyroid biopsy 07/27/2020. TECHNIQUE: Linear transducer grayscale and color Doppler examination with attention to the region of the thyroid. FINDINGS: SIZE: Measurements of the thyroid lobes and nodules are given in sagittal, anteroposterior and transverse dimensions respectively. Right Thyroid Lobe: 7.2 x 3.9 x 4.9 cm, volume 72.0 mL. Previously 7.1 x 4.6 x 5.5 cm, volume 93.4 mL. Parenchyma: The gland echotexture is heterogeneous. Thyroid vascularity is normal. Left Thyroid Lobe: 5.8 x 2.8 x 2.0 cm, volume 17.0 mL. Previously 8.0 x 4.3 x 2.1 cm, volume 38.9 mL. Parenchyma: The gland echotexture is heterogeneous. Thyroid vascularity is normal. Isthmus: 1.0 cm in maximum AP dimension. Previously 1.0 cm. Estimated total number of nodules greater than or equal to 1 cm: 4. Reworker nodules are described as follows: 1. Location: Right lower pole. Size: 4.3 x 4.5 x 4.1 cm, volume 39.7 mL. Previously: 5.5 x 4.1 x 4.0 cm, volume 49.3 mL. Nodule characteristics: Composition: Mixed cystic and solid (1). Echogenicity: Isoechoic (1). Shape: Not taller than wide (0). Margins: Ill-defined (0). Echogenic Foci: None (0). Macrocalcifications (0). ACR TI-RADS total points: 2 Previous: 9 ACR TI-RADS category: 2 Previous: 5 Significant change in size (>/= 20% in 2 dimensions and minimal increase of 2 mm or 50% or greater increase in volume): No Change in features: No Change in ACR TI-RADS risk category: Yes 2. Location: Right mid pole. Size: 1.3 x 0.7 x 1.2 cm, volume 0.6 mL. Previously: Not documented, new. Nodule characteristics: Composition: Solid (2). Echogenicity: Isoechoic (1). Shape: Not taller than wide (0). Margins: Smooth (0). Echogenic Foci: None (0). ACR TI-RADS total points: 3 ACR TI-RADS category: 3 3. Location: Left upper pole. Size: 1.2 x 1.2 x 1.1 cm, volume 0.8 mL. Previously: 0.8 x 0.6 x 0.8 cm, volume 0.2 mL. Nodule characteristics: Composition: Mixed cystic and solid (1). Echogenicity: Isoechoic (1). Shape: No 1 Margins: Ill-defined (1). Echogenic Foci: None (0). ACR TI-RADS total points: 4 Previous: 3 ACR TI-RADS category: 4 Previous: 3 Significant change in size (>/= 20% in 2 dimensions and minimal increase of 2 mm or 50% or greater increase in volume): Yes Change in features: No Change in ACR TI-RADS risk category: 2 4. Location: Left mid pole. Size: 4.2 x 2.5 x 1.9 cm, volume 10.2 mL. Previously: 2.9 x 3.1 x 2.0 cm, volume 9.5 mL. Nodule characteristics: Composition: Solid/almost completely solid (2). Echogenicity: Hypoechoic (1). Shape: Not taller than wide (0). Margins: Smooth (0). Echogenic Foci: None (0). ACR TI-RADS total points: 3 Previous: 6 ACR TI-RADS category: 3 Previous: 4 Significant change in size (>/= 20% in 2 dimensions and minimal increase of 2 mm or 50% or greater increase in volume): No Change in features: Yes Change in ACR TI-RADS risk category: Yes, lower than NODES: No lymphadenopathy is seen in the tissue surrounding the thyroid gland. US/US thyroid IMPRESSION: Multinodular goiter with a few interval change NM THYROID UPTAKE AND SCAN 02/20/22 CLINICAL INFORMATION: Thyrotoxicosis, hyperthyroidism. COMPARISON: Ultrasound dated 05/09/2020. TECHNIQUE: Following the oral administration of 287 microcuries of I-123 sodium iodide, thyroid uptake was performed and expressed as a percentage of the administrated dose. Gamma scintillation camera images of the thyroid in the anterior and right and left anterior oblique views were obtained using a pinhole collimator following the administration of 10 mCi Tc-99m pertechnetate. FINDINGS: The uptake is 29.1% at 4 hours and 44.7% at 24 hours. Imaging of the gland shows heterogeneous appearance to the mid to lower aspects of both the right and left gland. When ultrasound is reviewed this is likely in areas of nodularity. No convincing evidence for hot nodule. NM/NM thyroid w uptake IMPRESSION: Elevated uptakes within a heterogeneous gland as described. Findings would be most consistent with Graves' disease in an underlying nodular gland. Given the nodules correlate to areas of cold defect on this study underlying thyroid malignancy cannot be excluded. [facility] Medical History Thiamine deficiency Hyperthyroidism Class 2 severe obesity with body mass index (BMI) of 35 to 39.9 with serious comorbidity Tobacco use disorder Microscopic hematuria Vitamin D deficiency Multinodular thyroid Essential (primary) hypertension Cataract (lens) fragments in eye following cataract surgery, left eye Surgical History History of biopsy History of squamous cell carcinoma excision History of colonoscopy (~10/15/17) Hx of cataract extraction History of tonsillectomy Family History Father Angina at rest Melanoma Cardiac disease Leukemia Mother Hypertension Macular degeneration Maternal Grandfather Substance abuse Social History Housing: Apartment Alcohol intake: current Alcohol intake frequency: holidays/special occasions only Patient Tobacco Use Status: Current everyday Tobacco user Tobacco use type: Cigarette Cigarette Packs Per Day: 0.5 Cigarettes Per Day: 10 e-Cigarette/Vaping Use: Never Used Second Hand Smoke Exposure: Yes service: No Current occupational status: retired Cognitive needs: No Hearing needs: Yes (hearing aides) Vision needs: Yes (Glasses) Physical Exam Vital Signs: Last Vital Signs Pulse 96 12/03/24 10:18 BP 110/58 L 12/03/24 10:18 Pulse Ox 96 12/03/24 10:18 Oxygen Delivery Method Room Air 12/03/24 10:18 BMI result Body Mass Index 33.5 Assessment & Plan Assessment & Plan (1) Multinodular thyroid: Code(s): E04.2 - Nontoxic multinodular goiter Category: Medical Plan: Patient also has a history of multinodular goiter, no family history of thyroid cancer, no personal history of head or neck radiation. She was diagnosed with thyroid nodules in 2019. 03/19/2018: Status post FNA biopsy of the left lower pole 3.2 cm and right lower pole 4.7 cm nodule with benign cytology Repeat thyroid ultrasound in 2020 showed significant increase in the size of the left superior pole nodule. Status post FNA of the left superior pole 1.2 cm thyroid nodule 07/27/2020 with benign cytology. Ultrasound thyroid most recently done 08/21/2022 which showed the right lower pole 4.5 cm nodule mixed cystic solid, isoechoic, which has somewhat decreased in size compared to previous ultrasound and also downgraded in TI-RADS category. The right midpole 1.3 cm new nodule solid isoechoic TR 3 category, does not meet criteria for FNA. The left superior 1.2 cm nodule which is mixed cystic solid, isoechoic, TR 3 category had some was increased in size. However this was the 1 biopsied before in 2020 and was benign. The left midpole 4.2 cm solid hypoechoic TR 4 nodule had a mild increase in size. No ultrasound done after that. Thyroid uptake and scan from January 2022 showed that the dominant lower pole nodules in the right and left glands are also cold. Plan: -ordered ultrasound of the thyroid to be done now (2) Hyperthyroidism: Code(s): E05.90 - Thyrotoxicosis, unspecified without thyrotoxic crisis or storm Category: Medical Plan: 79-year-old female with a history of hyperthyroidism secondary to Graves disease diagnosed January 2022 who has been on methimazole 5 mg more recently. Most recent blood work from November 2024 shows normal TSH, free T4, total T3. She is still has detectable TSH receptor and TSI antibodies, so I agree with continuing methimazole for now. I did discuss with her again that patients who has been on methimazole for 3-5 years with no remission, we should consider more definitive therapy such as surgery or radioactive iodine ablation. Given her history of thyroid nodules, she would be a better candidate for surgery. However given her age, at this time she would like to stay away from aggressive interventions and would like to continue the medication. The following were discussed as potential side effects of methimazole: - Serious skin rashes - nausea, vomiting, or severe hepatic injury - Agranulocytosis: a rare side effect of methimazole involves a severe decrease in the production of white blood cells. This condition is extremely serious, but affects only one out of every 200 to 500 people who take an antithyroid drug. Agranulocytosis more commonly occurs within the first three months of starting treatment with an antithyroid drug, but can occur at any time. If patient develops a fever (temperature above 100.5F), or other signs or symptoms of infec tion, she should stop taking the tapazole and immediately have a complete blood count (CBC) done. Serious and potentially life threatening infections, or even , can occur before agranulocytosis resolves. However, once the antithyroid drug is stopped, agranulocytosis usually resolves within a week. - Arthralgias, myalgias - Renal: Nephritis - Fever Patient will stop medication and call our office if these occur. Plan: -continue methimazole 5 mg daily -ordered TSH, free T4, total T3 to be done prior to next follow up in 6 months Plan I spent 30 minutes in reviewing the record, seeing the patient and documenting in the medical record. Orders: Orders Triiodothyronine T3 Total 04/18/25 E04.2 - Nontoxic multinodular goiter, E05.90 - Thyrotoxicosis, unspecified without thyrotoxic crisis or storm US thyroid Today E04.2 - Nontoxic multinodular goiter, E05.90 - Thyrotoxicosis, unspecified without thyrotoxic crisis or storm Thyroid Stimulating Hormone 04/18/25 E04.2 - Nontoxic multinodular goiter, E05.90 - Thyrotoxicosis, unspecified without thyrotoxic crisis or storm Free T4 (Free Thyroxine) 04/18/25 E04.2 - Nontoxic multinodular goiter, E05.90 - Thyrotoxicosis, unspecified without thyrotoxic crisis or storm Medications: Refilled methimazole 5 mg PO DAILY 90 tabs 4RF Patient Instructions: Do thyroid ultrasound , someone will call you to schedule this continue methimazole 5 mg daily Follow up in May 2025 with blood work done 1-2 weeks before, i have already put in the orders The following were discussed as potential side effects of methimazole: - Serious skin rashes - nausea, vomiting, or severe hepatic injury - Agranulocytosis: a rare side effect of methimazole involves a severe decrease in the production of white blood cells. This condition is extremely serious, but affects only one out of every 200 to 500 people who take an antithyroid drug. Agranulocytosis more commonly occurs within the first three months of starting treatment with an antithyroid drug, but can occur at any time. If patient develops a fever (temperature above 100.5F), or other signs or symptoms of infection, she should stop taking the tapazole and immediately have a complete blood count (CBC) done. Serious and potentially life threatening infections, or even , can occur before agranulocytosis resolves. However, once the antithyroid drug is stopped, agranulocytosis usually resolves within a week. - Arthralgias, myalgias - Renal: Nephritis - Fever Patient will stop medication and call our office if these occur. If you have fever, flu-like symptoms, sore throat or rash, stopped the medicine and call our office during office hours. If you have nausea, vomiting, abdominal pain, we will stools, dark urine, jaundiced appearance, stopped the medicine and call our office during office hours. If after office hours, go to the emergency room. Coding Level of Care Code Est Pt Level 4 (95028) Diagnoses Multinodular thyroid E04.2 Hyperthyroidism E05.90 Time Spent (min) 30
--- OUTSIDE RECORDS SUMMARY | 2024-12-03 10:39 | XMS_ITS | Patient Health Record ---
Author Organization [facility] Address [address] [place] [address] Care Team Providers Care Premix Concrete Batcher Name Role Phone Audie Bejarano Primary Care Provider Unavailab Geronimo Vanessa Unavailable [phone] Reason For Referral No Information Medications Medication [...] Problem Status W/U Status Risk Notes Problem [id number] Encounter for screening for malignant neoplasm of colon (Z12.11) Active confirmed Problem [id number] Pre-procedural examination (Z01.818) Active confirmed Problem [id number] Encounter for long-term (current) aspirin use (Z79.82) Active confirmed Plan Of Treatment Pending Test Test Name Order Date GI BIOPSY 10/15/2017 Future Test Test Name Order Date COLONOSCOPY 08/26/2017 Insurance Providers Payer Name Payer Address Payer Phone Subscriber Number Group Number Insured Name Patient Relationship to Insured Coverage Start Date Coverage End Date MEDICARE OF [place] [address] [place] [address] [phone] [id number] ARIS CORNELIUS Self - patient is the insured [facility] SUPPLEMENTAL PLAN [address] [place], [place] [id number] ARIS CORNELIUS Self - patient is the insured Medical (General) History Medical History History ICD Code Hypertension Denies [place],DM,CVA,Lung disease,renal dise ase Sleep apnea-cpap Urinary incontinence-mild Surgical History Surgery Date(Month/Year) Tonsillectomy
== END 2024-12-03 10:38 | disposition home or self-care (01) ==
LOC: HO.ENCR 09:55
PROVIDERS: PCP Internal Medicine; Visit Provider Student in an Organized Health Care Education/Training Program
DX: E04.2 Nontoxic multinodular goiter (principal); E05.90 Thyrotoxicosis, unspecified without thyrotoxic crisis or storm
CPT/HCPCS: 99214

== ENCOUNTER → 2024-12-03 09:54 | Outpatient (BNVA) | payer MEDICARE, SELFPAY | PROVIDERS: PCP Internal Medicine; Visit Provider Student in an Organized Health Care Education/Training Program | DX: E04.2 Nontoxic multinodular goiter (principal); E05.90 Thyrotoxicosis, unspecified without thyrotoxic crisis or storm | CPT/HCPCS: 99212 ==

== ENCOUNTER 2025-01-18 13:19 | Outpatient (REF) | payer MEDICARE, SELFPAY ==
--- OUTSIDE RECORDS SUMMARY | 2025-01-19 05:58 | XMS_ITS | Patient Health Record ---
Author Organization [facility] Address [address] [place] [address] Care Team Providers Care Injury Prevention Coordinator Name Role Phone Audie Bejarano Primary Care Provider UnavailGeronimo Wheeler Unavailable [phone] Reason For Referral No Information Medications Medication SIG (Take, Route, Frequency, Duration) Notes Start Date End Date Status Lisinopril 20 MG Tablet TK 1 T PO QD Ora l; Duration: 90 Active Aspir-81 81 MG Tablet Delayed Release 1 tablet Orally Once a day Active amLODIPine Besylate 10 MG Tablet TK 1 T PO QD Oral; Duration: 90 Active Multivitamin Adult A ctive Ocuvite Active Caltrate 600 Active Immunizations Vaccine Route Administration Date Status Comme nts Influenza Unknown 11/01/2016 Administered Social History Tobacco Use: Social History Observation Description Date Details (start date - stop date) Current Smoker NA - NA Social History Drugs/Alcohol: Social Info Question Answer Notes Alcohol Screen Did you have a drink containing alcohol in the past year? Yes How often did you have a drink containing alcohol in the past year? Monthly or less (1 point) How many drinks did you have on a typical day when you were drinking in the past year? 1 or 2 drinks (0 point) How often did you have 6 or more drinks on one occasion in the past year? Never (0 point) Points 1 Interpretation Negative Tobacco Use: Social Info Question Answer Notes Tobacco Use/Smoking Patient is a current smoker How often do you smoke cigarettes? every day How many cigarettes a day do you smoke? 6-10 Additional Details Category Social Info Options Details Miscellaneous: Marital status: Occupation: Retired Section Notes: Smoker 6 cigs QD; no sig alc ohol Problems Problem Type SNOMED Code ICD Code Onset Dates Problem Status W/U Status Risk Notes Problem Screening for malignant neoplasm of colon (368119051) Encounter for screening for malignant neoplasm of colon (Z12.11) Active confirmed Problem Pre-procedure evaluation check (526213179) Pre-procedural examination (Z01.818) Active confirmed Problem Long-term current use of antiplatelet drug (290929099494675 ) Encounter for long-term (current) aspirin use (Z79.82) Active confirmed Plan Of Treatment Pending Test Test Name Order Date GI BIOPSY 10/15/2017 Future Test Test Name Order Date COLONOSCOPY 08/26/2017 Insurance Providers Payer Name Payer Address Payer Phone Subscriber Number Group Number Insured Name Patient Relationship to Insured Coverage Start Date Coverage End Date MEDICARE OF [place] [address] [place] [address] [phone] [id number] ARIS CORNELIUS Self - patient is the insured [facility] SUPPLEMENTAL PLAN [address] [place] [address] [phone] [id number] ARIS CORNELIUS Self - patient is the insured Medical (General) History Medical History History ICD Code Hypertension Denies [place],DM,CVA,Lung disease,renal dise ase Sleep apnea-cpap Urinary incontinence-mild Surgical History Surgery Date(Month/Year) Tonsillectomy
== END 2025-01-18 13:20 | disposition home or self-care (01) ==
LOC: HO.MAMMO 13:19
PROVIDERS: PCP Internal Medicine; Visit Provider Internal Medicine
DX: Z12.31 Encounter for screening mammogram for malignant neoplasm of breast (principal)
CPT/HCPCS: 77063; 77067

== ENCOUNTER → 2025-01-18 13:45 | Outpatient (BNV) | payer MEDICARE, SELFPAY | PROVIDERS: PCP Internal Medicine; Visit Provider Internal Medicine | DX: Z12.31 Encounter for screening mammogram for malignant neoplasm of breast (principal) | CPT/HCPCS: 77063; 77067 ==

== ENCOUNTER 2025-01-26 10:37 | Outpatient (AMB) | payer MEDICARE, SELFPAY ==
--- NOTE | 2025-01-26 10:48 | A.OFFPC_ITS ---
Vital Signs 01/26/25 10:49 Height 5 ft 6 in Weight 204 lb 4 oz BMI 33.0 BP 122/68 Blood Pressure Location Lt brachial Position Sitting Pulse 100 Pulse Source Pulse Oximeter Temp 96.9 F Temp Source Temporal Artery Scan Pulse Oximetry (%) 95 Oxygen Delivery Method Room Air Intake Visit Reasons: Small bump on left leg Intake Note: Patient is here to follow up on Small bump on left leg. 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 - The patient reports that the lesion wa s initially itchy, and the patient scratched it. - The Patient has been applying Neospori n to the area. Social History Results [facility] Medical History Thiamine deficiency Hyperthyroidism Class 2 severe obesity with body mass index (BMI) of 35 to 39.9 with serious comorbidity Tobacco use disorder Microscopic hematuria Vitamin D deficiency Multinodular thyroid Essential (primary) hypertension Cataract (lens) fragments in eye following cataract surgery, left eye Surgical History History of biopsy History of squamous cell carcinoma excision History of colonoscopy (~10/15/17) Hx of cataract extraction History of tonsillectomy Family History Father Angina at rest Melanoma Cardiac disease Leukemia Mother Hypertension Macular degeneration Maternal Grandfather Substance abuse Social History Housing: Apartment Alcohol intake: current Alcohol intake frequency: holidays/special occasions only Patient Tobacco Use Status: Current everyday Tobacco user Tobacco use type: Cigarette Cigarette Packs Per Day: 0.5 Cigarettes Per Day: 10 e-Cigarette/Vaping Use: Never Used Second Hand Smoke Exposure: Yes service: No Current occupational status: retired Cognitive needs: No Hearing needs: Yes (hearing aides) Vision needs: Yes (Glasses) Questionnaire PHQ-9 Over the last 2 weeks, how often have you been bothered by any of the following problems? 1. Little interest or pleasure in doing things: not at all 2. Feeling down, depressed, or hopeless: not at all 3. Trouble falling or staying asleep, or sleeping too much: not at all 4. Feeling tired or having little energy: not at all 5. Poor appetite or overeating: not at all 6. Feeling bad about yourself - or that you are a failure or have let yourself or your family down: not at all 7. Trouble concentrating on things, such as reading the newspaper or watching television: not at all 8. Moving or speaking so slowly that other people could have noticed. Or the opposite - being so fidgety or restless that you have been moving around a lot more than usual: not at all 9. Thoughts that you would be better off or of hurting yourself in some way: not at all Total score: 0 Source: Developed by Drs. Geronimo Davis, Tosha Madrid, Marlo Oneill and colleagues, with an educational ruiz from [employer]. Thrive Questionnaire Date Thrive assessed: 01/24/25 I am a: Patient What is your living situation today?: I have a steady place to live Within the past 12 months, did the food you bought not last and you didn't have the money to get more?: Never true Within the past 12 months, did you worry whether your food would run out before you got money to buy more?: Never true Do you have trouble paying for medicines?: No Do you have trouble getting transportation to medical appointments?: No Do you have trouble paying your heating and electricity bill?: No Do you have trouble taking care of your child, family member or friend?: No Do you have trouble with day-to-day activities such as bathing, preparing meals, shopping, managing finances, etc.?: No Are you currently unemployed and looking for a job?: No Are you interested in more education?: No Please select the resources that you would like help with: None Currently or been in a relationship where the following occur: No concerns reported THRIVE Score: 0 AUDIT C Alcohol Use Questionnaire (AUDIT-C) 1. How often do you have a drink containing alcohol?: Monthly or less Total Score: 1 ODILON-7 AMB Questionnaire ODILON-7 Date ODILON - 7 assessed: 04/29/24 Feeling nervous, anxious, or on edge: 0 = Not at all Not being able to stop or control worryin = Not at all Worrying too much about different things: 0 = Not at all Trouble relaxin = Not at all Being so restless that it is hard to sit still: 0 = Not at all Becoming easily annoyed or irritable: 0 = Not at all Feeling afraid as if something awful might happen: 0 = Not at all Total ODILON-7 score (0-4 normal; 5-9 mild; 10-14 moderate; 15-21 severe): 0 Source: Developed by Drs. Geronimo Davis, Tosha Madrid, Marlo Oneill and colleagues, with an educational ruiz from [employer]. Review of Systems Narrative Review of Systems - Integumentary: Reports an itchy lesion on the left leg for about a week and a half. - All other systems reviewed and are negative as the patient denies other concerns. Physical exam (Primary Care) Vital Signs: Last Vital Signs Temp 96.9 F 01/26/25 10:49 Pulse 100 01/26/25 10:49 BP 122/68 01/26/25 10:49 Pulse Ox 95 01/26/25 10:49 Oxygen Delivery Method Room Air 01/26/25 10:49 BMI result Body Mass Index 33.0 Tobacco/Smoking Status: Tobacco use Status Tobacco use date assessed 01/26/25 01/26/25 10:53 Patient Tobacco Use Status Current everyday Tobacco 01/26/25 10:53 Tobacco use type Cigarette 01/26/25 10:53 e-Cigarette/Vaping Use Never Used 01/26/25 10:53 PHQ-9: PHQ-9 Score PHQ-9: Total score 0 01/26/25 10:53 Thrive Assessment: Date of Thrive Assessment Date Thrive assessed 01/24/25 01/26/25 10:53 Currently or been in a relationship where the following occur: No concerns reported Narrative Physical Exam General: Cooperative and healthy appearing Nutritional Appearance: Well nourished Orientation/consciousness: Patient oriented x3 Limitations: No limitations Head: Normal to inspection General: Appearance normal, both eyes and all related structures Neck: Normal visual inspection Chest: Normal palpation of entire chest wall Respiratory: Normal respiratory effort Neurology: Patient oriented x3 Coding Level of Care Code Est Pt Level 3 (81924) Diagnoses Lesion of bone of lower leg M89.9 Assessment & Plan Assessment & Plan (1) Lesion of bone of lower leg: Code(s): M89.9 - Disorder of bone, unspecified Plan Plan - The lesion was identified as a blood blister, likely from an insect bite. - Reassurance was provided that the lesion should resolve on its own. - Advised the patient to not pick at the lesion. - The patient may continue using Neosporin and can apply a Band-Aid to protect clothing. - Advised to follow up in a couple of weeks if it does not resolve for possible removal. Discussion Notes I discussed with the patient that the lesion on the leg is a blood blister, likely resulting from an insect bite, and is not a cause for concern. I explained that it should heal on its own and advised the patient not to pick at it. I confirmed that continuing to apply Neosporin is acceptable and suggested using a Band-Aid to prevent bleeding onto clothing. I recommended a follow-up visit in a couple of weeks for potential removal if the lesion does not go away. Patient Instructions - The lesion on your leg is a blood blister, likely from a bug bite, and is expected to get better on its own. - Do not pick at the blister; let it heal naturally. - You may continue to apply Neosporin and can cover the area with a Band-Aid to protect your clothing. - If the lesion does not go away in a couple of weeks, please return for a re- evaluation.
[2025-01-26 10:49] VITALS: BP 122/68; PULSE 100; TEMP 36.1; O2SAT 95; BMI 33.0
== END 2025-01-26 11:22 | disposition home or self-care (01) ==
LOC: HO.HMCH 10:38
PROVIDERS: PCP Internal Medicine; Visit Provider Internal Medicine
DX: M89.9 Disorder of bone, unspecified (principal)

== ENCOUNTER → 2025-01-26 10:37 | Outpatient (BNVA) | payer MEDICARE, SELFPAY | PROVIDERS: PCP Internal Medicine; Visit Provider Internal Medicine | DX: M89.9 Disorder of bone, unspecified (principal); F17.200 Nicotine dependence, unspecified, uncomplicated; Z71.6 Tobacco abuse counseling | CPT/HCPCS: 99212 ==

== ENCOUNTER 2025-02-10 10:58 | Outpatient (REF) | payer MEDICARE, SELFPAY ==
--- NOTE | ~2025-02-10 | US_ITS ---
EXAMINATION: US THYROID CLINICAL INFORMATION: Multinodular goiter. Nontoxic. COMPARISON: 08/21/2022, 09/19/2021. Previous left upper lobe thyroid nodule biopsy 07/27/2020. TECHNIQUE: Linear transducer grayscale and color Doppler examination with attention to the region of the thyroid. FINDINGS: SIZE: Measurements of the thyroid lobes and nodules are given in sagittal, anteroposterior and transverse dimensions respectively. Right Thyroid Lobe: 6.6 x 2.9 x 2.7 cm, volume 26.4 mL. (Enlarged) (previously this measured 72 mL) Parenchyma: The gland echotexture is heterogeneous. Thyroid vascularity is normal. Left Thyroid Lobe: 6.5 x 3.0 x 2.2 cm, volume 22.5 mL. (Enlarged) (previously this measured 17.0 mL) Parenchyma: The gland echotexture is heterogeneous. Thyroid vascularity is normal. Isthmus: 0.3 cm in maximum AP dimension. (Previously measuring 6.0 cm) Estimated total number of nodules greater than or equal to 1 cm: 4. Supervisor Assembly Room nodules are described as follows: 1. Location: Right mid pole. Size: 1.9 x 1.1 x 1.8 cm, volume 2.0 mL. (Previously 0.6 mL) Nodule characteristics: Composition: Solid/almost completely solid (2). Echogenicity: Isoechoic (1). Shape: Not taller than wide (0). Margins: Smooth (0). Echogenic Foci: None (0). ACR TI-RADS total points: 3 ACR TI-RADS category: 3 2. Location: Right lower pole. Size: 3.8 x 5.1 x 4.7 cm, volume 47.2 mL. (Previously 42.3 mL) Nodule characteristics: Composition: Mixed cystic and solid (1). Echogenicity: Hyperechoic (1). Shape: Taller than wide (3). Margins: Smooth (0). Echogenic Foci: Macrocalcifications (1). ACR TI-RADS total points: 9 ACR TI-RADS category: 5 3. Location: Left upper pole. Size: 0.9 x 0.9 x 1.3 cm, volume 0.5 mL. (Previously 0.8 mL) Nodule characteristics: Composition: Mixed cystic and solid (1). Echogenicity: Isoechoic (1). Shape: Not taller than wide (0). Margins: Smooth (0). Echogenic Foci: None (0). ACR TI-RADS total points: 2 ACR TI-RADS category: 2 (previously labeled as category 4) 4. Location: Left mid pole. Size: 2.1 x 1.6 x 2.0 cm, volume 8.3 mL. (Previously 10.2 mL) Nodule characteristics: Composition: Solid/almost completely solid (2). Echogenicity: Hyperechoic (1). Shape: Not taller than wide (0). Margins: Smooth (0). Echogenic Foci: None (0). ACR TI-RADS total points: 3 ACR TI-RADS category: 8 (previously labeled as category 4) NODES: No lymphadenopathy is seen in the tissue surrounding the thyroid gland. US/US thyroid IMPRESSION: 1. There is a 1.9 cm right mid pole TR category 3 nodule, significantly larger than on the prior. Continued follow-up recommended. 2. There is a 5.1 cm right lower pole TR category 5 nodule, essentially unchanged from the prior examination. FNA advised if not already performed. 3. There is a 1.3 cm left upper pole TR category 2 nodule, essentially unchanged or slightly smaller. No follow-up recommended. Previous biopsy was benign. 4. There is a 2.1 cm left mid pole TR category 3 nodule, significantly decreased in size from the prior, highly suggesting benignity. Continued follow-up recommended. 5. Significantly smaller overall thyroid gland as discussed above, with diffusely heterogeneous thyroid parenchyma in keeping with thyroiditis. --- ACR TI-RADS RECOMMENDATION REFERENCE: Ultrasound-guided fine-needle aspiration, followup ultrasound, no further follow up. * TR1 (0 point) and TR2 (2 points): No FNA or follow up. * TR3 (3 points): FNA if more than or equal to 2.5 cm in maximum dimension, followup ultrasound in 1, 3 and 5 years if 1.5 to 2.4 cm in maximum dimension. * TR4 (4-6 points): FNA if more than or equal to 1.5 cm in maximum dimension, followup ultrasound in 1, 2, 3 and 5 years if 1 to 1.4 cm in maximum dimension. * TR5 (more than or equal to 7 points): FNA if more than or equal to 1 cm in maximum dimension, followup ultrasound every year for 5 years if 0.5 to 0.9 cm in maximum dimension. * TR3, TR4 or TR5 nodules that are below the size threshold for followup receive no follow up. Electronically signed by: Luis Carlos Garcia MD 02/10/2025 12:37 PM ANEL LEE
== END 2025-02-10 10:59 | disposition home or self-care (01) ==
LOC: HO.US 10:58
PROVIDERS: PCP Internal Medicine; Visit Provider Student in an Organized Health Care Education/Training Program
DX: E05.20 Thyrotoxicosis with toxic multinodular goiter without thyrotoxic crisis or storm (principal)
CPT/HCPCS: 76536; 99212

== ENCOUNTER → 2025-02-10 11:00 | Outpatient (BNV) | payer MEDICARE, SELFPAY | PROVIDERS: PCP Internal Medicine; Visit Provider Radiology Diagnostic Radiology | DX: E04.2 Nontoxic multinodular goiter (principal) | CPT/HCPCS: 76536 ==

== ENCOUNTER 2025-02-10 12:56 | Outpatient (AMB) | payer MEDICARE, SELFPAY ==
--- NOTE | 2025-02-10 13:01 | A.OFFPC_ITS ---
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 Inspector: Not Required per policy Accompanied by: Self / Same As Patient Allergies No Known Allergies (No Known Allergies*) Allergy (Verified 02/10/25 13:33) Medication List - Last Reconciled 02/10/25 by Seymour Wild MD amlodipine 10 mg PO DAILY aspirin 81 mg PO DAILY calcium carbonate 500 mg PO BID cholecalciferol (vitamin D3) 50 mcg PO DAILY lisinopril 40 mg (2 x 20 mg) PO DAILY methimazole 5 mg PO DAILY multivitamin 1 tab PO DAILY rosuvastatin 10 mg PO BEDTIME thiamine HCl (vitamin B1) 100 mg PO DAILY Tobacco use date assessed: 02/10/25 Fall risk assessment: No Falls in past year Last assessed Fall Risk: 02/10/25 Dental Screening Dental Screen Date: 04/29/24 Did you have a dental visit in the last 12 months?: No Did you have a dental problem in the last 6 months where you did not have access to dental care?: No Was dental information given to patient?: No HPI HPI Comments History of Present Illness Details History of Present Illness - The patient is a 79-year-old female pr esenting for follow-up on a worsening leg lesion. - She reports that the lesion on her lef t leg is not resolving and noticed it a few days ago when it was itchy. Social History Results - Vitals: Blood pressure today was 100/5 8 mmHg. [facility] Medical History Thiamine deficiency Hyperthyroidism Class 2 severe obesity with body mass index (BMI) of 35 to 39.9 with serious comorbidity Tobacco use disorder Microscopic hematuria Vitamin D deficiency Multinodular thyroid Essential (primary) hypertension Cataract (lens) fragments in eye following cataract surgery, left eye Surgical History History of biopsy History of squamous cell carcinoma excision History of colonoscopy (~10/15/17) Hx of cataract extraction History of tonsillectomy Family History Father Angina at rest Melanoma Cardiac disease Leukemia Mother Hypertension Macular degeneration Maternal Grandfather Substance abuse Social History Housing: Apartment Alcohol intake: current Alcohol intake frequency: holidays/special occasions only Patient Tobacco Use Status: Current everyday Tobacco user Tobacco use type: Cigarette Cigarette Packs Per Day: 0.5 Cigarettes Per Day: 10 e-Cigarette/Vaping Use: Never Used Second Hand Smoke Exposure: Yes service: No Current occupational status: retired Cognitive needs: No Hearing needs: Yes (hearing aides) Vision needs: Yes (Glasses) Questionnaire Thrive Questionnaire Date Thrive assessed: 02/10/25 I am a: Patient What is your living situation today?: I have a steady place to live Within the past 12 months, did the food you bought not last and you didn't have the money to get more?: Never true Within the past 12 months, did you worry whether your food would run out before you got money to buy more?: Never true Do you have trouble paying for medicines?: No Do you have trouble getting transportation to medical appointments?: No Do you have trouble paying your heating and electricity bill?: No Do you have trouble taking care of your child, family member or friend?: No Do you have trouble with day-to-day activities such as bathing, preparing meals, shopping, managing finances, etc.?: No Are you currently unemployed and looking for a job?: No Are you interested in more education?: No Please select the resources that you would like help with: None Currently or been in a relationship where the following occur: No concerns reported THRIVE Score: 0 ODILON-7 AMB Questionnaire ODILON-7 Date ODILON - 7 assessed: 04/29/24 Source: Developed by Drs. Geronimo Davis, Tosha Madrid, Marlo Oneill and colleagues, with an educational ruiz from [employer]. Review of Systems Narrative Review of Systems - Integumentary: Reports an itchy lesion on the left leg. - Constitutional: Denies feeling unwell despite low blood pressure reading. Physical exam (Primary Care) Vital Signs: Last Vital Signs Pulse 88 02/10/25 13:02 BP 100/58 L 02/10/25 13:02 Pulse Ox 95 02/10/25 13:02 Oxygen Delivery Method Room Air 02/10/25 13:02 BMI result Body Mass Index 33.1 Tobacco/Smoking Status: Tobacco use Status Tobacco use date assessed 02/10/25 02/10/25 13:05 Patient Tobacco Use Status Current everyday Tobacco 02/10/25 13:05 Tobacco use type Cigarette 02/10/25 13:05 e-Cigarette/Vaping Use Never Used 02/10/25 13:05 Thrive Assessment: Date of Thrive Assessment Date Thrive assessed 02/10/25 02/10/25 13:09 Currently or been in a relationship where the following occur: No concerns reported Narrative Physical Exam General: Cooperative and healthy appearing Nutritional Appearance: Well nourished Orientation/consciousness: Patient oriented x3 Limitations: No limitations Head: Normal to inspection General: Appearance normal, both eyes and all related structures Neck: Normal visual inspection Chest: Normal palpation of entire chest wall Respiratory: Normal respiratory effort Neurology: Patient oriented x3 Coding Level of Care Code Est Pt Level 3 (17217) Add On Problem Visit Only Diagnoses Basal cell carcinoma C44.91 Assessment & Plan Assessment & Plan (1) Basal cell carcinoma: Code(s): C44.91 - Basal cell carcinoma of skin, unspecified Plan Plan - A referral will be placed for a general surgeon to remove and biopsy the 3 cm lesion on the patient's left leg. - The patient was advised she should receive a call from the surgeon's office by next week to schedule an appointment. - Regarding her blood pressure of 100/58, no concern was expressed as she is feeling well. Discussion Notes I examined the lesion on the patient's left leg, which she reported as worsening. It is a 3 cm lesion with central ulceration, which appears to be more than a few days old. I informed the patient that I will refer her to a general surgeon for removal and biopsy of the lesion. I advised her that she should expect a call from the surgeon's office by next week to schedule the appointment and to contact my office if she does not hear from them. She mentioned her blood pressure was 100/58, and I reassured her that since she is feeling well, it is not a cause for concern at this time. Patient Instructions - The lesion on your left leg will be removed and biopsied by a general surgeon. - You should receive a call from the surgeon's office by next week to schedule an appointment. - If you do not receive a call by next week, please contact our office. - Your blood pressure reading of 100/58 is not a concern as long as you are feeling well. Orders: Referrals 2 General Surgery Referral C44.91 - Basal cell carcinoma of skin, unspecified
[2025-02-10 13:02] VITALS: BP 100/58; PULSE 88; O2SAT 95; BMI 33.1
== END 2025-02-10 13:32 | disposition home or self-care (01) ==
LOC: HO.HMCH 12:57
PROVIDERS: PCP Internal Medicine; Visit Provider Internal Medicine
DX: C44.91 Basal cell carcinoma of skin, unspecified (principal)